=== PATIENT | female | born 1965 | race Caucasian/White ===

== ENCOUNTER → 2018-03-03 16:46 | Outpatient (CLI) | payer BC, SELFPAY ==
[2018-03-06 11:02] LABS: HPV Reflexed? NOT INDICATED
== END ==
PROVIDERS: Visit Provider Obstetrics & Gynecology
DX: Z12.4 Encounter for screening for malignant neoplasm of cervix (principal)
CPT/HCPCS: 88175; G0145

== ENCOUNTER → 2018-04-26 15:50 | Outpatient (CLI) | payer BC, SELFPAY ==
--- NOTE | 2018-04-26 15:52 | BI_ITS ---
MAMMOGRAPHY - BILATERAL SCREENING REASON FOR EXAM: Female, 52 years old. Routine annual screening examination. PERTINENT HISTORY: Non-contributory. TECHNIQUE: Digital bilateral breast yasmine (3D mammographic acquisition) in the CC and MLO projections. 2-D mediolateral oblique (MLO) and craniocaudad (CC) views of both breasts were obtained. CAD: Full Field Digital Mammography with Computer Added Detection was performed. COMPARISON: Comparison is made with prior study dated April 24, 2017 and December 11, 2014. FINDINGS: Breast Composition: There are scattered areas of fibroglandular density. There are no dominant masses or suspicious calcifications. No other significant abnormalities are identified. There has been no significant change since the prior study. BI/SCREENING MAMM (CAD), BILAT IMPRESSION: Stable bilateral screening mammogram. Yearly follow-up mammogram recommended. (A) ASSESSMENT CATEGORY: BIRADS Category 1: Negative. A letter regarding these results will be sent to the patient by the facility within 30 days. Approximately 10% of breast cancers are not detected by mammography. A normal mammogram should not delay biopsy of a clinically suspicious abnormality. [id number] Electronically Signed: John Bennett MD at 8:38 EDT Tel [phone], Service support ,
== END ==
PROVIDERS: Visit Provider Obstetrics & Gynecology
DX: Z12.31 Encounter for screening mammogram for malignant neoplasm of breast (principal)
CPT/HCPCS: 77063; 77067

== ENCOUNTER → 2018-07-24 08:09 | Outpatient (CLI) | payer BC, SELFPAY ==
[2018-07-24 10:32] LABS: BUN 20 mg/dL (7-18); Creatinine, Serum 0.78 mg/dL (0.55-1.02); EST Glomerular Filtration Rate 83 mL/min (>60); Glucose 79 mg/dL (74-106)
[2018-07-24 10:33] LABS: AST(SGOT) 23 U/L (15-37); Alanine Aminotransfer ALT/SGPT 27 U/L (13-56); Albumin, Serum 3.5 g/dL (3.2-5.0); Alkaline Phosphatase 86 U/L (45-117); Anion Gap 6 (5-15); BUN/Creat Ratio 25.6 RATIO (10-20); Calcium,Total 8.9 mg/dL (8.5-10.1); Chloride 104 mmol/L (98-107); Est Glom Filt Rate - Afr Amer 100 mL/min (>60); Globulin 3.6 g/dL (2.2-4.2); Potassium 4.1 mmol/L (3.5-5.1); Protein, Total 7.1 g/dL (6.4-8.2); Sodium Level 137 mmol/L (136-145)
== END ==
PROVIDERS: Family Provider Family Medicine; PCP Family Medicine; Referring Provider Family Medicine; Visit Provider Family Medicine
DX: I10 Essential (primary) hypertension (principal)
CPT/HCPCS: 36415; 80053

== ENCOUNTER → 2018-09-27 20:00 | Outpatient (CLI) | payer BC, SELFPAY | PROVIDERS: Family Provider Family Medicine; PCP Family Medicine; Visit Provider Nurse Practitioner Family | DX: G47.10 Hypersomnia, unspecified (principal) | CPT/HCPCS: 95810 ==

== ENCOUNTER → 2018-09-28 15:45 | Outpatient (CLI) | payer BC, SELFPAY ==
[2018-09-14 15:58] VITALS: BMI 38.7
--- NOTE | 2018-09-28 15:51 | CT_ITS ---
STUDY: CT MAXILLOFACIAL SINUSES REASON FOR EXAM: Female, 52 years old. Strycker sinus, chronic maxillary sinusitis. RADIATION DOSAGE (If Supplied By Facility): CTDIvol = ( 33.45 ) mGy, DLP = ( 755.46 ) mGycm TECHNIQUE: The patient was scanned in a multi detector CT scanner. High resolution axial imaging was performed without the administration of intravenous contrast material. Sagittal and coronal images were reconstructed. Individualized dose optimization techniques were used for this CT. COMPARISON: CT sinus 07/25/2014 FINDINGS: FRONTAL SINUSES: Normal aeration, without mucosal inflammatory disease. ETHMOIDAL SINUSES: Normal aeration, without mucosal inflammatory disease. MAXILLARY SINUSES: Normal aeration, without mucosal inflammatory disease. SPHENOIDAL SINUSES: Normal aeration, without mucosal inflammatory disease. There is patency of the bilateral maxillary infundibuli with normal uncinate processes, ethmoid bullae, and hiatus semilunaris. Normal bilateral middle turbinates. Normal bilateral inferior turbinates. There is mild rightward bowing of the nasal septum. There is patency of the bilateral nasal airways. The visualized osseous structures are normal. The visualized bilateral orbital contents are normal. CT/Sinus/Facial Bone IMPRESSION: Mild bowing of the nasal septum. Otherwise normal paranasal sinuses. No evidence of acute or chronic sinus disease. Electronically Signed: Marty Pinedo MD at 17:38 EST Tel , Service support ,
--- OUTSIDE RECORDS SUMMARY | 2018-11-14 23:04 | XMS RPT_ITS ---
:1965 Author Organization OHIP Support Name Relationship Address Phone MARINO, ARMANDO Unavailable [address] + [place] [address] WOOBR Unavailable [address] [place] [address] MARINO, ARMANDO Unavailable [address] + [place] [address] WOOBR Unavailable [address] [place] [address] MARINO, ARMANDO Unavailable [address] + [place] [address] WOOBR Unavailable [address] [place] [address] MARINO, ARMANDO Unavailable [address] + [place] [address] WOOBR Unavailable [address] [place] [address] MARINO, ARMANDO Unavailable [address] + [place] [address] WOOBR Unavailable [address] [place] [address] MARINO, ARMANDO Unavailable [address] + [place] [address] WOOBR Unavailable [address] [place] [address] MARINO, ARMANDO Unavailable [address] + [place] [address] WOOBR Unavailable [address] [place] [address] MARINO, ARMANDO Unavailable [address] + [place] [address] WOOBR Unavailable [address] [place] [address] MARINO, ARMANDO Unavailable [address] + [place] [address] WOOBR Unavailable [address] [place] [address] MARINO, ARMANDO Unavailable [address] + [place] [address] WOOBR Unavailable [address] [place] [address] Care Team Providers Name Role Phone Rocio Garza Attending Unavailable Carlos, Kai Referring Unavailable Rocio Garza Attending Unavailable Rocio Garza Referring Unavailable Brown, Kai Primary Care Unavailable Russel Walton PRODUCTION REPAIRER-C Attending Unavailable Carlos, Kai Referring Unavailable Lee, Kai Attending Unavailable Lee, Kai Referring Unavailable Brown, Kai Primary Care Unavailable Brown, Kai Primary Care Unavailable Russel Walton PRODUCTION REPAIRER-C Attending Unavailable Brown, Kai Attending Unavailable Brown, Kai Referring Unavailable Brown, Kai Primary Care Unavailable Brown, Kai Attending Unavailable Primay Care Physicia, No Referring Unavailable Danica Duran Attending Unavailable Cecile Monk Attending Unavailable Cecile Monk Attending Unavailable PROBLEMS PROBLEMS DATE TYPE CONDITION / CODE ATTENDING STATUS SOURCE 10/11/2018 Unknown G47.33 - Galo Garza Obstructive sleep [facility] apnea (adult) Hospital (pediatric) / Repository G47.33(ICD-10) 09/27/2018 Unknown R40.0 - Somnolence Russel Walton Active [facility] / R40.0(ICD-10) PRODUCTION REPAIRER[facility]C [facility] Rep[facility] 09/14/2018 Unknown J32.9 - Chronic Russel Walton Active [facility] sinusitis, PRODUCTION REPAIRER-C Community unspecified / Hospital J32.9(ICD-10) Repository 07/14/2018 Unknown I10 - Essential Kai Gonzalez Active [facility] (primary) Community hypertension / Hospital I10(ICD-10) Repository 04/26/2018 Unknown Z12.31 - Encounter Cecile Monk for screening [facility] mammogram for Hospital malignant neoplasm Repository of breast / Z12.31(ICD-10) 03/04/2018 Unknown Z12.4 - Encounter Cecile Monk Active [facility] for screening for Community malignant neoplasm [facility] / Repository Z12.4(ICD-10) PROCEDURES PROCEDURES No Procedure Records FoundRESULTS RESULTS PULMONARY VISIT REPORT Observed: 10/11/2018 Status: F Source: CHRISTINE 8:53 AM [facility] REPOSITORY [facility] [address] [place] [address] OFFICE VISIT Date of Service: 10/11/18 MR#: [id number] Acct: [id number] Name: OPAL AMI Rep #: [id number] : 1965 Provider: Rocio Garza Age/Sex: 52/F Location: [facility] Status: Signed Assessment AND Plan 1. FERNANDA (obstructive sleep apnea) G47.33 Plan New. Lengthy discussion about the pathophysiology of obstructive sleep apnea. Discussed the risks of untreated sleep apnea and the benefits of treatment. Patient is willing to undergo a titration study. Discussed that initially the goal will be that she wears the device at least 4 hours nightly, but ultimately she should wear the device any time spent sleeping. She conveys understanding and is agreeable. She will follow-up with Dr. Stone in approximately 3 months, at which time anticipate she will be on therapy for approximately 4-6 weeks. She has been encouraged to contact the office with any difficulty acclimating to the device. Orders Orders: 2. Class 2 severe obesity due to excess calories with serious comorbidity and body mass index (BMI) of 38.0 to 38.9 in adult E66.01; Z68.38 Plan Detail Other Medications New: albuterol sulfate HFA 90 mcg/actuation (Vento2 puffs Inhalation Q6H PRN 18 grams 6RF shor santosh HFA) tness of breath or wheezing Follow Up 3 Months (BWA) HPI Sleep concern: Chief Complaint: Daytime hypersomnia HPI Comments Details: This patient presents the office today for evaluation for sleep apnea. She is ambulatory and currently in room air. She reports persistent daytime fatigue, frequent headaches, snoring and dry mouth in the morning. She has occasional shortness of breath on exertion only, denies any shortness of breath with rest or conversation. She denies any cough, sputum production or hemoptysis. She denies any wheezing, chest tightness, chest pain or palpitations. She denies any trouble with lower extremity edema. She is currently being treated by her primary care physician for her asthma, and rarely needs to use her Ventolin rescue inhaler. She follows with Dr. Lee regarding recurrent sinusitis and is being treated with Flonase daily. She denies any medication side effects such as epistaxis. Polysomnogram completed on September 27, 2018 showing an overall AHI of 15.3 average events per hour, noted to be 14.6 events per hour in the REM stage of sleep and 22.8 events per hour in the supine position. Impression is mild obstructive sleep apnea and a CPAP titration study has been recommended. STOP-BANG Assessment: 1. Do you snore? Y 2. Are you frequently tired during the day? Y 3. Have you been observed gasping or choking while asleep? N 4. Do you have high blood pressure? Y 5. BMI - greater than 35kg/m2? Y 6. Age - over 50 years old? Y 7. Neck Circumference - greater than 37 cm for females or 40 cm for males? Y 8. Gender - male? N Total STOP-BANG score = 6 which indicates High risk for obstructive sleep apnea (yes to 3 or more questions = high risk of sleep apnea). Intake Vital Signs10/11/18 Height 5 ft 5 in 10/11/18 Weight: 230 lb Intake Visit Reasons: Sleep problems Accompanied by: Self Allergies No Known Allergies Allergy (Unverified 10/11/18 08:18) Medications albuterol sulfate 0.63 mg/3 mL solution for nebulization 0.63 mg INHALATION Q4H PRN 07/14/18 [History Confirmed 10/11/18] lisinopril 20 mg-hydrochlorothiazide 25 mg tablet 1 tab PO QDAY #90 tab 07/14/18 [Rx Confirmed 10/11/18] fluticasone 50 mcg/actuation nasal spray,suspension 2 spray INTRANASAL DAILY #15.8 g 09/14/18 [Rx Confirmed 10/11/18] albuterol sulfate HFA 90 mcg/actuation aerosol inhaler 2 puff INHALATION Q6H PRN #18 g 10/11/18 [Rx Confirmed 10/11/18] PFS Medical History Acute hemorrhoid (Acute) Hypokalemia (Chronic) Hypertension (Chronic) History of hysterectomy (Acute) IBS (irritable bowel syndrome) (Acute) Surgical History History of D AND C (Acute) History of colposcopy (Acute) History of orthopedic surgery (Acute) Family History Other Cancer Hypertension Thyroid disorder Social History Smoking Status: Former smoker how long ago did patient quit smokin, second hand exposure: Yes alcohol intake: never substance use type: does not use what type of physical activity do you participate in: none Review of Systems Const CONSTITUTIONAL: Positive daytime sleepiness and fatigue; negative anorexia, body ache, chills, fever(s), night sweats, oral thrush, stops breathing during sleep, weight loss, sleeping in chair, weight loss, weight gain, frequent colds, seasonal allergies, other, headache(s) or orthopnea EETM Ear Nose Throat Mouth: Positive hearing normal, dry mouth in morning, nasal congestion and sinus pressure; negative hard of hearing, hoarseness, change in vision, itchy eyes, eye pain, swallowing Difficulty, ear pain, nose bleed, headache(s), mouth pain, nasal discharge, post nasal drip, sinus pain, sore throat or other Cardio Cardiovascular: Negative chest pain, chest pain at rest, chest pain with activity, irregular heart rhythm, edema, shortness of breath when lying down, palpitations, murmur or other Resp Respiratory: Positive as per HPI, shortness of breath shortness of breath: Positive with activity, cough, snoring and apnea; negative pain with cough, wheezing, chest congestion, chest tightness, pain on inspiration, inhalers, increase use of rescue inhalers or other Gastro Gastrointestional: Negative bloody stools, change in appetite, difficulty swallowing, reflux, hematemesis, melena stool, loose stool, constipation or other Genitourinary: Negative blood in urine, nocturia, pain with urination or other Musc Musculoskeletal: Negative body pain, back pain, neck pain or other Skin/Breast Skin/Breast: Negative dry skin, itching, rash, unusual bruising, breast lump or other Neuro Neurological: Negative restless legs, confusion, weakness or other Psych Psychocological: Negative abnormal sleep pattern, anxiety, thoughts of hurting self/others, hopelessness or other Lymph Lymphatic: Negative easy bleeding, easy bruising, swollen lymph nodes or other Exam Const Constitutional: Positive conversant, cooperative, in no acute respiratory distress, healthy appearing, well developed, well nourished, good hygiene and obese Head Head: Positive normocephalic and atraumatic; negative cyanosis of lips/distal nose Eyes Eye: Positive clear conjunctiva; negative nystagmus or scleral abnormality Ears Ear: Positive hearing normal and external ears normal; negative hard of hearing Nose Nose: Positive external nose normal and no nasal discharge; negative epistaxis Mouth Mouth: Positive oral mucosae normal, no lesions, good dentition and crowded posterior oropharynx; negative post nasal drip, malodorous breath or oral thrush present Mallampati Score: III: Mallampati Score Neck Neck: Positive normal visual inspection, full ROM, trachea midline, thick neck and female neck greater than 37 cm (15 in); negative lymphadenopathy, JVD or tender Chest Wall Chest: Positive normal inspection of the chest and symmetric chest movement; negative increased A/P diameter Resp lung sounds: Positive clear to auscultation, good air exchange, normal expiratory time and normal respiratory effort; negative diminished, wheezes, rhonchi, rales, dullness to percussion or wheeze present on forced exhalation Cardio Cardiac: Positive regular rate, regular rhythm, S1 normal and S2 normal; negative murmur GI GI: Positive normal to inspection and obese; negative distended Genitourinary: Positive deferred Musc Musculoskeletal: Positive steady gait and ROM normal; negative kyphosis or scoliosis Skin Pulmonary Skin Exam: Positive intact; negative rash Pulses Pulse: Yes pulses normal x4 extremities Extremities Extremities: Yes capillary refill normal, No clubbing, No cyanosis, No edema Neuro Neurologic: Yes conversant, Yes no focal neuro deficits, Yes normal concentration, Yes cooperative, Yes understands questions, Yes normal cognition, Yes normal coordination, No tremor Lymph Lymphatic: No lymphadenopathy, No tenderness, No cervical adenopathy Psych Appearance: Positive grossly normal, eye contact and well kempt Mental Status: Positive mental status grossly normal Mood: Positive congruent mood Affect: Positive normal affect Coding Level of Care Code Off vis,new,level 4 Diagnoses FERNANDA (obstructive sleep apnea) G47.33 Class 2 severe obesity due to excess calories with serious comorbidity and body mass index (BMI) of 38.0 to 38.9 in adult E66.01; Z68.38 Obesity type: due to excess calories Obesity classification: adult class 2 (BMI 35 - 39.9) Serious obesity comorbidity presence: with serious comorbidity Body mass index: BMI 38.0-38.9 10/11/18 0853 <Electronically signed by Rocio BURGOS> Date Rocio BURGOS Cosigner Signature: Date (if applicable) CC: Kai Gonzalez DO SINUS/FACIAL BONE Observed: 09/28/2018 Status: F Source: CHRISTINE 3:51 PM [facility] REPOSITORY [facility] Imaging Services [address] [place] [address] Sinus/Facial Bone MR#: [id number] Acct: [id number] Name: OPAL MAI Rep #: [id number] : 1965 F 52 From: Marty Pinedo MD PCP: Kai Gonzalez DO Status: REG CLI Study: Sinus/Facial Bone Date of Exam: 09/28/18 Exam# [id number] Ordering Dr: Kai Lee MD STUDY: CT MAXILLOFACIAL SINUSES REASON FOR EXAM: Female, 52 years old. Strycker sinus, chronic maxillary sinusitis. RADIATION DOSAGE (If Supplied By Facility): CTDIvol = ( 33.45 ) mGy, DLP = ( 755.46 ) mGycm TECHNIQUE: The patient was scanned in a multi detector CT scanner. High resolution axial imaging was performed without the administration of intravenous contrast material. Sagittal and coronal images were reconstructed. Individualized dose optimization techniques were used for this CT. COMPARISON: CT sinus 07/25/2014 FINDINGS: FRONTAL SINUSES: Normal aeration, without mucosal inflammatory disease. ETHMOIDAL SINUSES: Normal aeration, without mucosal inflammatory disease. MAXILLARY SINUSES: Normal aeration, without mucosal inflammatory disease. SPHENOIDAL SINUSES: Normal aeration, without mucosal inflammatory disease. There is patency of the bilateral maxillary infundibuli with normal uncinate processes, ethmoid bullae, and hiatus semilunaris. Normal bilateral middle turbinates. Normal bilateral inferior turbinates. There is mild rightward bowing of the nasal septum. There is patency of the bilateral nasal airways. The visualized osseous structures are normal. The visualized bilateral orbital contents are normal. CT/Sinus/Facial Bone IMPRESSION: Mild bowing of the nasal septum. Otherwise normal paranasal sinuses. No evidence of acute or chronic sinus disease. Electronically Signed: Marty Pinedo MD at 17:38 EST Tel , Service support , CC: Kai Gonzalez DO; Kai Lee MD Railway Head Tender: Signed INTERNAL MEDICINE Observed: 09/15/2018 Status: F Source: CHRISTINE OFFICE VISIT 10:49 AM [facility] [place] [address] [place] [address] OFFICE VISIT Date of Service: 09/14/18 MR#: [id number] Acct: [id number] Name: OPAL MAI Carroll Rep #: [id number] : 1965 Provider: Russel Walton NP Age/Sex: 52/F Location: [facility] Status: Signed Intake Vital Signs09/14/18 Height 5 ft 5 in Intake Visit Reasons: Wants Sleep Study Chief Complaint: sleep study work up and sinus infection Is patient in pain?: Yes (sinus pressure) Allergies No Known Allergies Allergy (Unverified 07/14/18 15:22) Medications albuterol sulfate 0.63 mg/3 mL solution for nebulization 0.63 mg INHALATION Q4H PRN 07/14/18 [History Confirmed 07/14/18] albuterol sulfate HFA 90 mcg/actuation aerosol inhaler 2 puff INHALATION Q6H PRN 07/14/18 [History Confirmed 07/14/18] lisinopril 20 mg-hydrochlorothiazide 25 mg tablet 1 tab PO QDAY #90 tab 07/14/18 [Rx Confirmed 07/14/18] fluticasone 50 mcg/actuation nasal spray,suspension 2 spray INTRANASAL DAILY #15.8 g 09/14/18 [Rx Confirmed 09/14/18] Post menopausal: Yes PFSH Medical History Acute hemorrhoid (Acute) Hypokalemia (Chronic) Hypertension (Chronic) History of hysterectomy (Acute) IBS (irritable bowel syndrome) (Acute) Surgical History History of D AND C (Acute) History of colposcopy (Acute) History of orthopedic surgery (Acute) Family History Other Cancer Hypertension Thyroid disorder Social History Smoking Status: Former smoker how long ago did patient quit smokin alcohol intake: never substance use type: does not use what type of physical activity do you participate in: none HPI HPI Chief Complaint: sleep study work up and sinus infection Details: OPAL MAI, is a 52 F who presents to the office today for acute visit for complaints of recurrent sinus infection and wanting sleep study ordered. Patient has a past medical history as listed above. The patient states that she needs an order for sleep study that she has scheduled at the end of this week. STOP-BANG Assessment: 1. Do you snore? y 2. Are you frequently tired during the day? y 3. Have you been observed gasping or choking while asleep? y 4. Do you have high blood pressure? y 5. BMI - greater than 35kg/m2? y 6. Age - over 50 years old? y 7. Neck Circumference - greater than 37 cm for females or 40 cm for males? y 41cm 8. Gender - male? n Total STOP-BANG score = 7 which indicates high risk for obstructive sleep apnea (yes to 3 or more questions = high risk of sleep apnea). Patient also complains of sinus pressure and sinus headache that have been going on for the past week. She complains of pressure under her eyes and a headache on the top of her head. She denies sinus pressure pain with change in position. She is attempted [id number] Tylenol Cold and saline nasal spray that have had little effect. She states she was recently treated with Augmentin in June for sinusitis and states that she gets frequent 5-6 sinus infections yearly. She does state that she has seen ENT about 3 years ago and was diagnosed with migraines, although she feels this is not the problem. She is requesting to see a different ent. She denies any other aggravating or alleviating factors. The patient otherwise denies any fever, chills, nausea, vomiting, shortness of breath, chest pain or pressure, palpitations, orthopnea, lower extremity edema, syncope or presyncopal episodes. ROS Const Constitutional: Positive for fatigue, sleep problems and snoring; no weight change, body ache, chills, fever(s), change in appetite, weakness, frequent falls, headache(s) or excessive sweating Eyes Eyes: No change in vision, eye pain, light sensitivity or blurry vision ENT ENT: Positive for nasal congestion, sinus pain and sinus pressure; no headache(s), abnormal hearing, ear pain, tinnitus, sore throat or neck pain Resp Respiratory: Positive for snoring; no cough, shortness of breath or wheezing Cardio Cardiology: No excessive sweating, chest pain at rest, chest pain with exertion, shortness of breath, dyspnea on exertion, palpitations, orthopnea or lightheadedness Gastro GI: No abdominal pain, change in bowel habits, constipation, diarrhea, vomiting, nausea/dyspepsia or cramping Genitourinary-Female: No burning urination, painful urination, urinary incontinence, urinary frequency, abnormal vaginal bleeding, pelvic pain or other Musc Musculoskeletal: No neck pain, abnormal walking, joint pain, back pain, limited range of motion, numbness, tingling or muscle weakness Skin Skin: No redness, dry skin, itching, lesions, wounds or rash Neuro Neurology: No weakness, frequent falls, headache(s), abnormal hearing, abnormal walking, numbness, tingling, abnormal speech, dizziness or memory loss Psych Psychiatric: No change in appetite, No memory loss, No anxiety, No depression, No Thoughts of harming yourself/Others Endo Endocrine: Positive for fatigue; no excessive sweating, cold intolerance, increased thirst/drinking, heat intolerance, flushing or increased hunger Aller/Imm Allergy/Immunologic: No wheezing, itchy eyes, hives or seasonal allergy symptoms Tk/Lymp Hematologic/Lymphatic: No easy bleeding, easy bruising or enlarged lymph nodes Exam Const General: cooperative, comfortable, no acute distress Nutritional Appearance: well nourished, obese Orientation: alert, oriented x3 Limitations: mental status not altered HENNC Head: normal to inspection Ears: hearing grossly normal bilaterally, TM's normal bilaterally Nose: external nose normal Face and sinus: sinus tenderness maxillary Mouth: oral mucosae normal Teeth and gingiva: dentition normal Throat: posterior oropharynx normal, other (mallampati 4) Eyes General: appearance normal, both eyes and all related structures Resp Effort AND Inspection: normal respiratory effort, able to speak in complete sentences, normal respiratory pattern, symmetric chest movement, no audible wheezes, no cough Auscultation: Bilateral: Clear to Auscultation Cardio Palpation: normal PMI Rate: regular rate Heart Sounds: S1 normal, S2 normal, normal S1 and S2, no click, no gallops, no murmurs, no rubs Musc Musculoskeletal: No joint tenderness, decreased ROM or muscle weakness Skin General: no rashes or lesions noted, elasticity normal, turgor normal Lesions: no lesions Rashes: no rashes Neuro General: alert, awake, oriented x3, CN's II-XI intact bilaterally Speech: speech normal Gait: normal gait Motor: muscle tone normal throughout Extrem General: normal to inspection, normal gait, no edema, no pedal edema Psych Appearance: grossly normal Mental Status: mental status grossly normal Affect: normal affect Attitude: cooperative Thought Process: normal Assessment AND Plan 1. Chronic maxillary sinusitis J32.0 Plan Patient recently treated with Augmentin, will hold off on antibiotic treatment at this time as patient's duration of symptoms have only been a couple of days. Conservative management at this time. Encouraged patient to use Flonase. Patient also referred to ENT. Patient educated on medication side effects and signs and symptoms that would warrant emergency medical care. 2. Daytime somnolence R40.0 Plan Stop bang score 7. Referral given for sleep study. This note was generated with Volance dictation software. It may contain incorrect words, spelling, and punctuation that were not noted in checking the note before signing. Orders Orders: Plan Detail Other Orders Referrals: Other Medications New: fluticasone 50 mcg/actuation (Flonase Allergy Re2 sprays Intranasal DAILY 15.8 grams 1RF lief) administer into each nostril Follow Up As previously scheduled or sooner if Coding Level of Care Code Off vis,est,level 3 Diagnoses Chronic maxillary sinusitis J32.0 Daytime somnolence R40.0 09/15/18 1049 <Electronically signed by Russel BURGOS> Date Russel BURGOS Cosigner Signature: Date (if applicable) CC: COMPREHENSIVE METABOLIC Collected: 07/24/2018 Status: F Source: [place] REBECA 8:20 AM [facility] REPOSITORY TYPE CODE TESTS RESULT OUT OF RANGE REFERENCE UNITS LAB L501.0100 74-106 mg/dL Normal GLU 79 Result Comment: Please note revised GLUCOSE reference range effective 2017. LAB L501.1000 7-18 mg/dL High BUN 20 LAB L501.1100 0.55-1.02 mg/dL Normal CREAT,SERUM 0.78 Result Comment: The validity of the calculated GFR AND GFRAA in patients over 70 years has not been determined. Clinical correlation is essential. LAB L501.1110 >60 mL/min Normal EST GFR 83 Result Comment: Non- GFR Calc LAB L501.1115 >60 mL/min Normal EST GFR - AA 100 Result Comment: GFR Calc LAB L501.1300 10-20 RATIO High BUN/CRE 25.6 LAB L501.1500 6.4-8.2 g/dL T Normal PROT 7.1 LAB L501.1800 3.2-5.0 g/dL Normal ALB 3.5 LAB L501.1950 2.2-4.2 g/dL Normal GLOB 3.6 LAB L501.2000 0.9-2.4 RATIO Normal A/G 1.0 LAB L501.2200 8.5-10.1 mg/dL CA Normal 8.9 LAB L501.4100 15-37 U/L Normal AST 23 Result Comment: Slight Hemolysis, Result may be falsely increased. LAB L501.4305 45-117 U/L Normal ALK P 86 LAB L501.4405 13-56 U/L Normal ALT 27 LAB L501.4600 0.20-1.00 mg/dL Normal T BILI 0.40 LAB L501.5300 136-145 mmol/L Normal NA 137 LAB L501.5600 3.5-5.1 mmol/L Normal K 4.1 Result Comment: Slight Hemolysis, Result may be falsely increased. LAB L501.5900 98-107 mmol/L Normal CL 104 LAB L501.6100 21.0-32.0 mmol/L Normal CO2 27.0 LAB L501.6200 5-15 Normal 6 GAP Performed By: #### L500.4050 #### [facility] [address] [place], [address] INTERNAL MEDICINE Observed: 07/14/2018 Status: F Source: CHRISTINE OFFICE VISIT 4:07 PM [facility] Internal Medicine [address] [place] [address] [place] [address] OFFICE VISIT Date of Service: 07/14/18 MR#: [id number] Acct: [id number] Name: OPAL MAI Rep #: [id number] : 1965 Provider: Kai Gonzalez DO Age/Sex: 52/F Location: [facility] Status: Signed Intake Vital Signs07/14/18 Height 5 ft 5 in Intake Visit Reasons: EST CARE, REFILLS Chief Complaint: refills, sinus infection Is patient in pain?: No Allergies No Known Allergies Allergy (Unverified 07/14/18 15:22) Medications albuterol sulfate 0.63 mg/3 mL solution for nebulization 0.63 mg INHALATION Q4H PRN 07/14/18 [History Confirmed 07/14/18] albuterol sulfate HFA 90 mcg/actuation aerosol inhaler 2 puff INHALATION Q6H PRN 07/14/18 [History Confirmed 07/14/18] amoxicillin 875 mg-potassium clavulanate 125 mg tablet 1 tab PO BID #14 tab 07/14/18 [Rx Confirmed 07/14/18] fluconazole 150 mg tablet 150 mg PO Q3D 0 Days #7 tab 07/14/18 [Rx Confirmed 07/14/18] lisinopril 20 mg-hydrochlorothiazide 25 mg tablet 1 tab PO QDAY #90 tab 07/14/18 [Rx Confirmed 07/14/18] terbinafine HCl 1 % topical cream 1 applic TOPICAL BID #15 g 07/14/18 [Rx Confirmed 07/14/18] Post menopausal: Yes PFSH Medical History Acute hemorrhoid (Acute) Hypokalemia (Chronic) Hypertension (Chronic) IBS (irritable bowel syndrome) (Acute) Surgical History History of D AND C (Acute) History of colposcopy (Acute) History of hysterectomy (Acute) History of orthopedic surgery (Acute) Family History Other Cancer Hypertension Thyroid disorder Social History Smoking Status: Former smoker how long ago did patient quit smokin alcohol intake: never substance use type: does not use what type of physical activity do you participate in: none HPI HPI Chief Complaint: refills, sinus infection Details: OPAL MAI, is a 52 F who presents to the office today for refills on her medication and for chronic sinus drainage and cough. The head congestion and cough started for 5 days ago she is coughing up mucopurulent sputum but mainly from the postnasal drainage she has. She has positional headaches with her sinus pain 2. ROS Const Constitutional: No weight change, body ache, chills, fatigue, sleep problems, fever(s), change in appetite, snoring, weakness, frequent falls, headache(s) or excessive sweating Eyes Eyes: No change in vision, eye pain, light sensitivity or blurry vision ENT ENT: Positive for nasal congestion, sore throat (slight) and sinus pressure; no headache(s), abnormal hearing, ear pain, tinnitus or neck pain Resp Respiratory: Positive for cough Cough: Yes productive; no snoring, shortness of breath or wheezing Cardio Cardiology: No excessive sweating, chest pain at rest, chest pain with exertion, shortness of breath, dyspnea on exertion, palpitations, orthopnea or lightheadedness Gastro GI: No abdominal pain, change in bowel habits, constipation, diarrhea, vomiting, nausea/dyspepsia or cramping Genitourinary-Female: No burning urination, painful urination, urinary incontinence, urinary frequency, abnormal vaginal bleeding, pelvic pain or other Musc Musculoskeletal: No neck pain, abnormal walking, joint pain, back pain, limited range of motion, numbness or tingling Skin Skin: Positive for redness (spot on Rt. side of clavicle); no dry skin, itching, lesions, wounds or rash Neuro Neurology: No weakness, frequent falls, headache(s), abnormal hearing, abnormal walking, numbness, tingling, abnormal speech, dizziness or memory loss Psych Psychiatric: No change in appetite, No memory loss, No anxiety, No depression, No Thoughts of harming yourself/Others Endo Endocrine: No fatigue, excessive sweating, cold intolerance, increased thirst/drinking, heat intolerance, flushing or increased hunger Aller/Imm Allergy/Immunologic: No wheezing, itchy eyes, hives or seasonal allergy symptoms Tk/Lymp Hematologic/Lymphatic: No easy bleeding, easy bruising or enlarged lymph nodes Exam Const General: cooperative Nutritional Appearance: overweight Orientation: oriented x3 HENMT Head: normal to inspection Ears: hearing grossly normal bilaterally, TM's normal bilaterally Nose: nasal discharge clear bilaterally Face and sinus: sinus tenderness maxillary Mouth: oral mucosae normal Teeth and gingiva: dentition normal Throat: posterior oropharynx normal Resp Effort AND Inspection: normal respiratory effort Auscultation: Bilateral: Expiratory Wheezes Cardio Rate: regular rate Rhythm: regular rhythm GI Auscultation: normal bowel sounds Palpation: no hepatosplenomegaly Skin Rashes: rashes noted (tinea appearing lesion on the right side of the neck and in the groin) Extrem General: no clubbing, cyanosis or edema Psych Appearance: well kempt Mental Status: mental status grossly normal Affect: normal affect Assessment AND Plan Problems 1. Hypertension I10 2. Sinusitis J32.9 3. Tinea corporis B35.4 4. Asthma J45.909 Plan Patient was here for refill on her medications. She does have asthma but it is quite well controlled on the medication she takes and she does not have to use the albuterol on a daily basis. She has some mucopurulent sinus drainage and a productive cough so we treated her for sinusitis. She had a rash that appeared to be tinea and she was treated with Lamisil and her blood pressure medications were ordered as well as labs to check renal function. She was encouraged to continue to lose weight we discussed the possibility of being on a maintenance medicine rather than just the albuterol, but she did not think that her asthma was bad enough to justify that at this time. Orders Orders: Medications New: Refilled: Plan Detail Follow Up 1 Year Coding Level of Care Code Off vis,est,level 3 Diagnoses Hypertension I10 Sinusitis J32.9 Tinea corporis B35.4 Asthma J45.909 Asthma severity: moderate Asthma persistence: persistent 07/14/18 1607 <Electronically signed by Kai Gonzalez DO> Date Kai Gonzalez DO Cosigner Signature: Date (if applicable) CC: SCREENING MAMM (CAD), Observed: 04/26/2018 Status: F Source: [facility] 3:52 PM [facility] REPOSITORY [facility] Imaging Services [address] [place] [id number] SCREENING MAMM (CAD), [facility] MR#: [id number] Acct: [id number] Name: OPAL MAI Rep #: [id number] : 1965 F 52 From: John Bennett MD PCP: Care Physician, No Primary Status: REG CLI Study: SCREENING MAMM (CAD), BIL Date of Exam: 04/26/18 Exam# [id number] Ordering Dr: Cecile Monk MD MAMMOGRAPHY - BILATERAL SCREENING REASON FOR EXAM: Female, 52 years old. Routine annual screening examination. PERTINENT HISTORY: Non-contributory. TECHNIQUE: Digital bilateral breast yasmine (3D mammographic acquisition) in the CC and MLO projections. 2-D mediolateral oblique (MLO) and craniocaudad (CC) views of both breasts were obtained. CAD: Full Field Digital Mammography with Computer Added Detection was performed. COMPARISON: Comparison is made with prior study dated April 24, 2017 and December 11, 2014. FINDINGS: Breast Composition: There are scattered areas of fibroglandular density. There are no dominant masses or suspicious calcifications. No other significant abnormalities are identified. There has been no significant change since the prior study. BI/SCREENING MAMM (CAD), BILAT IMPRESSION: Stable bilateral screening mammogram. Yearly follow-up mammogram recommended. (A) ASSESSMENT CATEGORY: BIRADS Category 1: Negative. A letter regarding these results will be sent to the patient by the facility within 30 days. Approximately 10% of breast cancers are not detected by mammography. A normal mammogram should not delay biopsy of a clinically suspicious abnormality. [id number] Electronically Signed: John Bennett MD at 8:38 EDT Tel [phone], Service support , CC: No Primary Care Physician; Cecile Monk MD Railway Head Tender: Signed PAP I-G W/RFX HRHPV Collected: 03/03/2018 Status: F Source: [place] 3:45 PM [facility] REPOSITORY Order Comment: CYTOLOGY INFORMATION: - CLINICAL INFORMATION: HYSTERECTOMY - DATE LMP/MENOPAUSE: - COLLECTION VIAL: Thin Prep Vial - CORPORATE SALES TRAINER SOURCE: VAGINAL - COLLECTION TECHNIQUE: SPATULA ONLY Specimen Comment: [id number] Specimen Comment: No. of containers..01 ThinPrep Vial TYPE CODE TESTS RESULT OUT OF RANGE REFERENCE UNITS LAB L7400.0800 . Normal DIAGN Comment Result Comment: NEGATIVE FOR INTRAEPITHELIAL LESION AND MALIGNANCY. LAB L7400.0900 . Normal ADEQ Comment Result Comment: Satisfactory for evaluation. No endocervical cells are present. This is consistent with a history of hysterectomy. LAB L7400.1400 . Normal PERFORM Comment Result Comment: Stefania Barajas, Freight Brake Operator (ASCP) LAB L7400.2575 . Normal TEST METHOD Comment Result Comment: This liquid based ThinPrep(R) pap test was screened with the use of an image guided system. LAB L7400.2600 . Normal . COMM LAB L7400.2700 . Normal PAPSMR Comment Result Comment: The Pap smear is a screening test designed to aid in the detection of premalignant and malignant conditions of the uterine cervix. It is not a diagnostic procedure and should not be used as the sole means of detecting cervical cancer. Both false-positive and false-negative reports do occur. LAB L7400.2800 . Normal HPV RFLX Comment Result Comment: The HPV DNA reflex criteria were not met with this specimen result therefore, no HPV testing was performed. Performed at: [address] [id number] Back Hanger: Sulema Pastor MD, Phone: [phone] Performed By: #### L7400.0350 #### [facility] (refer to report for specific site) refer to report for address and phone number ALLERGIES ALLERGIES DATE TYPE / CODE NAME / CODE REACTION SEVERITY SOURCE 10/11/2018 Drug No Known Unknown [place] [facility] Allergy/4160 Allergies/F00 Hospital 04586(SNOMED [id number](RXNOR Repository CT) M) ENCOUNTERS ENCOUNTERS ADMIT/DISCHARGE ACCOUNT ADMITTING ENCOUNTER LOCATION SOURCE NUMBER CLASS 11/03/2018 [id number] Ambulatory [place] 4 [facility] ing:SL Repository 10/11/2018/ [id number] Ambulatory BMSBuilding:B [place] 8 2 [place] Repository 09/28/2018 [id number] Ambulatory [place] 1 [facility] ing:CT Repository 09/27/2018 [id number] Ambulatory [place] 9 [facility] ing:SL Repository 09/14/2018/ [id number] Ambulatory BMSBuilding:B [place] 8 7 MS.[facility] Repository 07/24/2018 [id number] Ambulatory [place] 7 [facility] ing:LAB Repository 07/14/2018/ [id number] Ambulatory BMSBuilding:B [place] 8 0 [facility] Repository 05/20/2018 [id number] Ambulatory BMSBuilding:B [place] 1 [facility] Repository 04/26/2018 [id number] Ambulatory [place] 8 [facility] ing:OPBI Repository 03/03/2018 [id number] Ambulatory [place] 0 [facility] ing:LABSPEC Repository PAYERS PAYERS ENCOUNTER GUARANTOR PAYER SUBSCRIBER SOURCE 11/03/2018 OPAL A Primary OPAL A [place] [id number] Insurance:ANTHEMPolic HUFFMANDOB: [facility] AMRITA MNAZANO y Number: [id number] Repository 23510Csv: (330) Date:8981-99-04WF [phone] () [address] [place] [address]KL: 11/03/2018 Secondary NOT GIVENUNK [place] Insurance:SELF PAY [facility] Number: Effective Repository Date:2018-10-13 10/11/2018 OPAL A Primary OPAL A [place] [id number] Insurance:ANTHEMPolic HUFFMANDOB: [facility] AMRITA MANZANO y Number: [id number] [id number] Repository 577[address]Uom: (330) Date:8634-88-65AT [phone] () [id number] [place] [address] 99987YP: 10/11/2018 Secondary NOT GIVENUNK [place] Insurance:SELF PAY [facility] Number: Effective Repository Date:2018-10-01 09/28/2018 OPAL A Primary OPAL A [place] [id number] Insurance:ANTHEMPolic HUFFMANDOB: [facility] AMRITA MANZANO y Number: [id number] [id number] Repository 543[address]Uou: (330) Date:3866-60-95NX [phone] () [id number] [place] [address] 72[address]KJ: 09/28/2018 Secondary NOT GIVENUNK [place] Insurance:SELF PAY [facility] Number: Effective Repository Date:2018-09-21 09/27/2018 OPAL A Primary OPAL A [place] [id number] Insurance:ANTHEMPolic HUFFMANDOB: [facility] AMRITA MANZANO y Number: [id number] [id number] Repository 304[address]Fli: (330) Date:0872-36-20OL [phone] () [id number], [place] [address]NH: 09/27/2018 Secondary NOT GIVENUNK [place] Insurance:SELF PAY [facility] Number: Effective Repository Date:2018-08-23 09/14/2018 OPAL A Primary OPLA A [place] [id number] Insurance:ANTHEMPolic HUFFMANDOB: Community AMRITA DRLOT y Number: [id number] [id number] Repository [address]Agk: (330) Date:2054-02-04SK [phone] () 436121GKDQOWY, [place] [address]SD: 09/14/2018 Secondary NOT GIVENUNK [place] Insurance:SELF PAY [facility] Number: Effective Repository Date:2018-09-14 07/24/2018 OPAL A Primary OPAL A [place] [id number] Insurance:ANTHEMPolic HUFFMANDOB: Community AMRITA DRLOT y Number: [id number] [id number] Repository [address]Ntd: (330) Date:5191-13-84FB [phone] () [id number], [place] [address]AQ: 07/24/2018 Secondary NOT GIVENUNK [place] Insurance:SELF PAY [facility] Number: Effective Repository Date:2018-07-24 07/14/2018 OPAL A Primary OPAL A [place] [id number] Insurance:ANTHEMPolic HUFFMANDOB: Community AMRITA DRLOT y Number: [id number] [id number] Repository [address]Cjy: (330) Date:9719-46-24JT [phone] () 005649DFDEMBC, [place] [address]CS: 07/14/2018 Secondary NOT GIVENUNK [place] Insurance:SELF PAY [facility] Number: Effective Repository Date:2018-07-14 05/20/2018 OPAL A Primary OPAL A [place] [id number] Insurance:ANTHEMPolic HUFFMANDOB: Community AMRITA MANZANO y Number: [id number] [id number] Repository [address]Vpy: (330) Date:9791-58-21JM [phone] () [id number], [place] [address]ZS: 05/20/2018 Secondary NOT GIVENUNK [place] Insurance:SELF PAY [facility] Number: Effective Repository Date:2018-05-20 04/26/2018 OPAL A Primary OPAL A [place] [id number] Insurance:ANTHEMPolic CARRIEFFMANDOB: [facility] AMRITA MANZANO y Number: [id number] [id number] Repository [address]Afw: (330) Date:3436-59-93JJ [phone] () 324[address]MHCHOIG, [place] [address]FR: 04/26/2018 Secondary NOT GIVENUNK [place] Insurance:SELF PAY [facility] Number: Effective Repository Date:2018-03-04 03/03/2018 OPAL A Primary OPAL A [place] [id number] Insurance:ANTHEMPolic HUFFMANDOB: [facility] AMRITA MANZANO y Number: [id number] [id number] Repository [address]Jqa: (330) Date:2963-70-21KP [phone] () [id number], [place] [address]XS: 03/03/2018 Secondary NOT GIVENUNK [place] Insurance:SELF PAY [facility] Number: Effective Repository Date:2018-03-03
== END ==
PROVIDERS: Family Provider Family Medicine; PCP Family Medicine; Referring Provider Otolaryngology; Visit Provider Otolaryngology
DX: J32.0 Chronic maxillary sinusitis (principal)
CPT/HCPCS: 70486

== ENCOUNTER → 2018-11-03 20:39 | Outpatient (CLI) | payer BC, SELFPAY ==
[2018-10-11 08:18] VITALS: BMI 38.2
== END ==
PROVIDERS: Family Provider Family Medicine; PCP Family Medicine; Referring Provider Nurse Practitioner Acute Care; Visit Provider Nurse Practitioner Acute Care
DX: G47.33 Obstructive sleep apnea (adult) (pediatric) (principal)
CPT/HCPCS: 95811

== ENCOUNTER → 2019-01-28 11:44 | Outpatient (CLI) | payer BC, SELFPAY ==
[2019-01-28 10:57] VITALS: BMI 37.5
--- NOTE | 2019-01-28 11:47 | RAD_ITS ---
STUDY: X-RAY - LUMBAR SPINE REASON FOR EXAM: Female, 53 years old. Low back pain. TECHNIQUE: 5 view(s) of the lumbar spine were obtained. COMPARISON: None FINDINGS: Normal lumbar lordosis. There is no substantial scoliosis. There is grade 1 spondylolisthesis of L5 on S1. There is multilevel endplate spondylosis of the lumbar vertebrae, most prominent at L2-3. Some osseous spurring is noted from the right L5 transverse process, extending towards the medial right iliac crest. There is multi-level degenerative disc disease with multi-level disc space narrowing, also most prominent at L2-3. There are chronic bilateral L5 pars defects. There is no demonstrated fracture. Degenerative changes seen in the lumbosacral facet joints. There is minor atherosclerotic calcification of the abdominal aorta. RAD/L/S Spine Min 4 Views IMPRESSION: Degenerative changes of the spine, as detailed above, including chronic bilateral L5 pars defects and grade 1 L5-S1 spondylolisthesis. Electronically Signed: Vinicius Flores MD at 15:37 EDT , Service support ,
== END ==
PROVIDERS: Family Provider Family Medicine; PCP Family Medicine; Referring Provider Internal Medicine; Visit Provider Internal Medicine
DX: M54.5 Low back pain (principal)
CPT/HCPCS: 72110

== ENCOUNTER 2019-04-15 09:39 | Day surgery (SDC) | payer BC, SELFPAY ==
[2019-03-11 09:07] VITALS: BMI 37.4
[2019-04-15] VITALS (8 sets, daily range): BP systolic 109–132; BP diastolic 75–97; PULSE 73–99; RESP 14–18; TEMP 36.3–36.7; O2SAT 93–100; BMI 37.3
--- NOTE | 2019-04-15 09:51 | EKG12_ITS ---
Test Reason : PREOP Blood Pressure : / mmHG Vent. Rate : 075 BPM Atrial Rate : 075 BPM P-R Int : 184 ms QRS Dur : 128 ms QT Int : 434 ms P-R-T Axes : 050 -47 -10 degrees QTc Int : 484 ms Normal sinus rhythm Right bundle branch block Left anterior fascicular block Bifascicular block Abnormal ECG Confirmed by KRYS ELDER, MARIA ESTHER ([id number]), editorial manager CATARINO ROUSE ([id number]) on 04/20/2019 1:01:05 PM Referred By: Kai Lee Confirmed By:MARIA ESTHER MARCANO MD
[2019-04-15 10:23] LABS: Anion Gap 3 (5-15); BUN 20 mg/dL (7-18); BUN/Creat Ratio 24.8 RATIO (10-20); Calcium,Total 9.2 mg/dL (8.5-10.1); Chloride 105 mmol/L (98-107); Creatinine, Serum 0.81 mg/dL (0.55-1.02); EST Glomerular Filtration Rate 79 mL/min (>60); Est Glom Filt Rate - Afr Amer 96 mL/min (>60); Estimated Creatinine Clearance 73.11 ml/min; Glucose 92 mg/dL (74-106); Potassium 3.8 mmol/L (3.5-5.1); Sodium Level 136 mmol/L (136-145)
--- NOTE | 2019-04-15 13:20 | PCM.PN.SRG ---
Patient Problems: Active and Suspected Problems (Last Reviewed 03/11/19 @ 09:06 by Ailyn Colbert) Acute ethmoidal sinusitis (Acute) Acute maxillary sinusitis (Acute) Deviated nasal septum (Acute) Subjective: This is a 51-year-old female presents for recurrent acute sinusitis with exam showing deviated nasal septum. She denies of surgical treatment given the recurrent nature of her illness. Objective: Upon bringing the patient to the operative room under the care of anesthesia and intubation low pulse oximetry and oxygen saturation was noted. Auscultation of the lungs bilaterally showed greatly diminished lung sounds, rhonchi, and wheezing. This failed to improve with bronchodilator therapy and adjustment of the endotracheal tube. Given this the case was canceled and the patient revived and extubated with pulmonary evaluation and optimization prior to surgery elected. - Physical Exam Lungs: Diminished, Rhonchi, Wheezes Cardiovascular: Regular rate, Regular Rhythm Vital Signs Temp Pulse Resp BP Pulse Ox 98.1 F 73 18 132/81 H 98 04/15/19 10:00 04/15/19 10:00 04/15/19 10:00 04/15/19 10:00 04/15/19 10:00 Oxygen Delivery Method Room Air Weight: 101.7 kg Body Mass Index (BMI) 37.3 Laboratory Tests Past 24 Hrs 04/15/19 10:00 Sodium 136 Potassium 3.8 Chloride 105 Carbon Dioxide 28.0 Anion Gap 3 L BUN 20 H Creatinine 0.81 Estim Creat Clear Calc 73.11 Est GFR (MDRD) Af Amer 96 Est GFR (MDRD) Non-Af 79 BUN/Creatinine Ratio 24.8 H Glucose 92 Calcium 9.2 Medical Necessity - Tobacco Use Smoking Status: Former smoker Assessment/Plan All Active Problems (Last Reviewed 03/11/19 @ 09:06 by Ailyn Colbert) Acute ethmoidal sinusitis (Acute) Acute maxillary sinusitis (Acute) Deviated nasal septum (Acute) Musculoskeletal back pain (Acute) Low back pain (Acute) FERNANDA (obstructive sleep apnea) (Acute) Sinusitis (Acute) Tinea corporis (Acute) Acute hemorrhoid (Acute) Patient surgical case canceled due to bronchospasm and low oxygen saturation while intubated. We will plan for pulmonary consultation as an outpatient. Return of normal oxygenation was noted after extubation at 100% with oxygen supplementation.
--- NOTE | 2019-04-15 13:28 | SUR.PHASEI ---
DENIES CHEST PAIN, SHORTNESS OF BREATH, OR DIFFICULTY BREATHING. STATES SHE FEELS SOME CHEST CONGESTION BUT DENIES ANY OTHER C/O. DUONEB AND PA/LATERAL CXR ORDERED BY DR JOHNATHAN SCHREIBER, CALLED R.T. FOR AEROSOL.
[2019-04-15] MEDS: Ipratropium/Albuterol Sulfate 3 ML AMPUL.NEB INHALATION (13:40)
--- NOTE | 2019-04-15 14:50 | SUR.PHASEII ---
pt arrived to on RA, aaox3. pt informed of orders for CXR and of [address] Gnozalez Pulmonary. pt states she has called her sister to meet her at Dr Gonzalez's office at 1500. pt departed via w/c to radiology. land mobile radio technician notified of pt's order and subsequent 1500 appointment. tech states they are waiting on her and that they will transport her to Dr Gonzalez's office. Prema RN states she has spoken with Dr Gonzalez's office and they are aware of CXR orders per anesthesia.
--- NOTE | 2019-04-15 14:55 | RAD_ITS ---
STUDY: X-RAY CHEST REASON FOR EXAM: Female, 53 years old. Postop. Shortness of breath. TECHNIQUE: PA and lateral views of the chest. COMPARISON: None. FINDINGS: The lungs are clear and mildly hypoexpanded. There is no demonstrated pleural abnormality. Normal size heart. Normal mediastinum and bennie. Normal visualized pulmonary arteries. Normal visualized aortic arch and descending thoracic aorta. There are diffuse degenerative changes of the visualized thoracic spine. There is degenerative osteoarthritis of the bilateral shoulders. There is no demonstrated abnormality of the visualized soft tissue structures of the upper abdomen. RAD/Chest PA and Lateral IMPRESSION: No acute cardiopulmonary disease. Electronically Signed: Navin Ta DO at 16:03 EDT Tel [phone], Service support ,
== END 2019-04-15 14:49 | disposition home or self-care (01) ==
LOC: SDC 09:39 → AC 09:41
PROVIDERS: Family Provider Family Medicine; PCP Family Medicine; Referring Provider Otolaryngology; Visit Provider Otolaryngology
DX: J34.2 Deviated nasal septum (principal); J01.21 Acute recurrent ethmoidal sinusitis; J01.01 Acute recurrent maxillary sinusitis; Z53.8 Procedure and treatment not carried out for other reasons; R09.02 Hypoxemia; I10 Essential (primary) hypertension; K58.9 Irritable bowel syndrome, unspecified; J45.909 Unspecified asthma, uncomplicated; G47.33 Obstructive sleep apnea (adult) (pediatric); Z79.899 Other long term (current) drug therapy; Z87.891 Personal history of nicotine dependence
CPT/HCPCS: 30520; 31255; 71046; 80048; 93005; J7120; J2405

== ENCOUNTER → 2019-04-29 19:50 | Outpatient (CLI) | payer BC, SELFPAY ==
[2018-12-30 14:58] VITALS: BMI 38.2
== END ==
PROVIDERS: Family Provider Family Medicine; PCP Family Medicine; Referring Provider Internal Medicine Critical Care Medicine; Visit Provider Internal Medicine Critical Care Medicine
DX: G47.33 Obstructive sleep apnea (adult) (pediatric) (principal)
CPT/HCPCS: 95811

== ENCOUNTER → 2019-05-06 | Outpatient (CLI) | payer BC, SELFPAY ==
[2019-04-15 14:39] VITALS: BMI 37.3
[2019-05-12 09:26] LABS: HPV Reflexed? NOT INDICATED
== END | disposition home or self-care (01) ==
LOC: LABSPEC 11:46
PROVIDERS: Visit Provider Obstetrics & Gynecology
DX: Z12.4 Encounter for screening for malignant neoplasm of cervix (principal)
CPT/HCPCS: 88175; G0145

== ENCOUNTER → 2019-05-10 15:45 | Outpatient (CLI) | payer BC, SELFPAY ==
[2019-04-15 14:39] VITALS: BMI 37.3
== END ==
PROVIDERS: Family Provider Family Medicine; PCP Family Medicine; Referring Provider Nurse Practitioner Acute Care; Visit Provider Nurse Practitioner Acute Care
DX: Z00.00 Encounter for general adult medical examination without abnormal findings (principal)

== ENCOUNTER → 2019-05-25 | Outpatient (CLI) | payer BC, SELFPAY ==
[2019-04-15 14:39] VITALS: BMI 37.3
[2019-05-11 16:12] VITALS: BMI 37.9
--- NOTE | 2019-05-25 15:51 | BI_ITS ---
MAMMOGRAPHY - BILATERAL SCREENING REASON FOR EXAM: Female, 53 years old. Routine annual screening examination. PERTINENT HISTORY: Non-contributory. TECHNIQUE: Digital bilateral breast ivory (3D mammographic acquisition) in the CC and MLO projections. 2-D mediolateral oblique (MLO) and craniocaudad (CC) views of both breasts were obtained. CAD: Full Field Digital Mammography with Computer Added Detection was performed. COMPARISON: Comparison is made with prior study April 26, 2018 and April 24, 2017. FINDINGS: Breast Composition: There are scattered areas of fibroglandular density. There are no dominant masses or suspicious calcifications. No other significant abnormalities are identified. There has been no significant change since the prior study. BI/SCREEN MAMM (CAD) W/IVORY BILAT IMPRESSION: Stable bilateral screening mammogram. Yearly follow-up mammogram recommended. (A) ASSESSMENT CATEGORY: BIRADS Category 1: Negative. A letter regarding these results will be sent to the patient by the facility within 30 days. Approximately 10% of breast cancers are not detected by mammography. A normal mammogram should not delay biopsy of a clinically suspicious abnormality. [id number] Electronically Signed: John Bennett, at 8:46 EDT , Service support ,
== END | disposition home or self-care (01) ==
PROVIDERS: Family Provider Family Medicine; PCP Family Medicine; Referring Provider Obstetrics & Gynecology; Visit Provider Obstetrics & Gynecology
DX: Z12.31 Encounter for screening mammogram for malignant neoplasm of breast (principal)
CPT/HCPCS: 77063; 77067

== ENCOUNTER → 2019-05-26 14:01 | Outpatient (CLI) | payer BC, SELFPAY ==
[2019-05-11 16:12] VITALS: BMI 37.9
--- NOTE | 2019-05-26 14:02 | ECHOD_ITS ---
Reason For Study: Arrhythmia Procedure This was a 2D Doppler, Color Flow transthoracic echocardiogram. Exam performed in department. Left Ventricle Normal LV size. Left ventricular systolic function is normal. The estimated ejection fraction is 55 %. Stage 2 diastolic dysfunction. No regional wall motion abnormalities noted. Right Ventricle Normal RV size. Normal systolic function. Atria Normal left atrium. Normal right atrium. Mitral Valve Normal mitral valve. Tricuspid Valve Normal tricuspid valve. Mild tricuspid valve insufficiency. Pulmonary artery systolic pressure is 25 mmHg. Pulmonic Valve Normal pulmonic valve. Great Vessels Normal aortic root. The pulmonary artery is normal size. Normal inferior vena cava. Pericardium/Pleural No pericardial effusion. MMode/2D Measurements & Calculations LVIDd: 3.8 cm IVSd: 1.1 cm Ao root diam: 2.8 cm LVIDs: 2.4 cm LVPWd: 1.2 cm RVDd: 3.6 cm FS: 36.3 % LAV(MOD-bp): 47.9 ml LA A4 area: 17.5 cm2 LA dimension(2D): 3.2 cm LAV(MOD-bp) Indexed: 23.1 ml/m2 LAV(MOD-sp2): 48.9 ml LAV(MOD-sp4): 47.0 ml RA A4 area: 13.9 cm2 Doppler Measurements & Calculations MV E max kam: 122.0 cm/sec Lat Peak E' Kam: 10.0 cm/sec Med Peak E' Kam: 8.5 cm/sec MV A max kam: 93.4 cm/sec E/E' lat: 12.3 E/E' med: 14.4 MV E/A: 1.3 Ao V2 max: 149.7 cm/sec LV V1 max: 119.3 cm/sec PA V2 max: 103.3 cm/sec Ao max P.0 mmHg LV V1 max P.7 mmHg TR max kam: 230.2 cm/sec TR max P.2 mmHg Interpretation Summary Normal LV size. Left ventricular systolic function is normal. The estimated ejection fraction is 55 %. Stage 2 diastolic dysfunction. Pulmonary artery systolic pressure is 25 mmHg. Ordering Physician: Matthew Sosa Referring Physician: Aleks Gonzalez M.D. Performed By: Abby Nicholson RDCS
== END ==
PROVIDERS: Family Provider Family Medicine; PCP Family Medicine; Referring Provider Internal Medicine Cardiovascular Disease; Visit Provider Internal Medicine Cardiovascular Disease
DX: Z01.810 Encounter for preprocedural cardiovascular examination (principal); I45.2 Bifascicular block
CPT/HCPCS: 93306

== ENCOUNTER 2019-07-01 06:27 | Day surgery (SDC) | payer BC, SELFPAY ==
[2019-06-01 08:15] VITALS: BMI 37.8
[2019-06-21 16:18] VITALS: BMI 37.3
[2019-07-01] VITALS (8 sets, daily range): BP systolic 111–161; BP diastolic 73–97; PULSE 71–93; RESP 16; TEMP 36.1–36.8; O2SAT 94–100; BMI 38.1
[2019-07-01 07:07] LABS: Hematocrit 42.9 % (37-47); Hemoglobin 14.4 g/dL (12.0-15.0); Mean Corp Hgb Conc 33.6 g/dL (32-36); Mean Corpuscular Hgb 30.8 pg (27.0-32.0); Mean Corpuscular Volume 91.9 fL (81-99); Mean Platelet Vol. 9.6 fl (6.2-12.0); Platelet Count 229 K/mm3 (150-450); RBC Distribution Width CV 12.9 % (11.6-14.6); RBC Distribution Width SD 43.6 fl (35.1-43.9); Red Blood Count 4.67 M/mm3 (4.2-5.4); White Blood Count 5.6 K/mm3 (4.4-11.0)
[2019-07-01] MEDS: Lactated Ringers 1,000 ML 100 ML IV (07:13)
--- NOTE | 2019-07-01 08:30 | ETH_PTH ---
PATIENT: OPAL MAI [place] [facility] [place][id number] AGE/SX: 53/F ROOM: RE07/01/[address]: Dr. Kai Lee MD : 1965 BED: DIS: 07/01/2019 SPEC #: [id number] RECD: 07/01/19 12:32 STATUS: KWASI CRISTY #: [id number] KISHORE: 07/01/19 08:[address]: Kai Lee DEPT: SURGICAL PATHOLOGY RECD BY: Geoffrey Valentin ENTERED: 07/01/19 12:33 SP TYPE: ETH TISS OTHR DR: Dr. Kai Gonzalez, Tissues: A - Ethmoid sinus, NOS B - Ethmoid sinus, NOS C - Nasal cartilage, NOS Procedures: Decalcification bone/plaque Surgery Specimen Level III Surgery Specimen Level IV HEADER OPERATION: Septoplasty, endoscopy nasal sinus with total ethmoidectomy PRE-OP DIAGNOSIS: Deviated nasal septum; acute ethmoidal sinusitis; acute maxillary sinusitis TISSUE SUBMITTED: A - Contents of right maxillary sinus, B - Contents of left maxillary sinus, C - Septal contents MICROSCOPIC DIAGNOSIS A. Right maxillary sinus contents: Fragments of respiratory mucosa with mild chronic inflammation. B. Left maxillary sinus contents: Fragments of respiratory mucosa with mild chronic inflammation and bone. C. Septal contents: Fragments of cartilage and bone, clinically deviated nasal septum. SJ:lopez 07/06/19 MICROSCOPIC DESCRIPTION Slides are reviewed. GROSS DESCRIPTION A - Received in fixative is one container labeled with the patient's name and designated right maxillary sinus contents. The specimen consists of multiple irregular and foamy fragments of pink-anderson soft tissue that in aggregate measure 5 x 3 x 0.3 cm. Mattress Stuffer portions are submitted in one cassette. B - Received in fixative is one container labeled with the patient's name and designated left maxillary sinus contents. The specimen consists of multiple irregular fragments of gritty, pink-anderson soft tissue that in aggregate measure 2.2 x 1 x 0.2 cm. The specimen is submitted in its entirety in one cassette after decalcification. C - Received in fixative is one container labeled with the patient's name and designated septal contents. The specimen consists of multiple irregular fragments of pink-white, gritty and cartilaginous tissue that in aggregate measure 2.5 x 2.5 x 0.2 cm. The specimen is submitted in its entirety in one cassette after decalcification. / AM:lopez 07/01/19 TC: 3 CPT: 34260 x2, 90263, 65815 x2
[2019-07-01] MEDS: Oxymetazoline 0.05% 1 SPRAY SPRAY.BTL 15 SPRAY (09:41)
[2019-07-01] MEDS: Lidocaine 4% 50 ML Bottle (09:41)
[2019-07-01] MEDS: Bacitracin 500 UNITS/GM PACKET (10:58)
--- NOTE | 2019-07-01 11:18 | OP.PCM_ITS ---
Problem List (1) Deviated nasal septum Status: Chronic (2) Acute maxillary sinusitis Status: Acute (3) Acute ethmoidal sinusitis Status: Acute Report of Operation Date of Procedure: 07/01/19 Pre-Operative Diagnosis: Deviated nasal septum, recurrent acute ethmoid and maxillary sinusitis Post-Operative Diagnosis: Same Surgery/Procedure Performed:: Septoplasty, bilateral endoscopic maxillary antrostomies, total ethmoidectomies Description of Surgical Findings:: Casi is a 53-year-old female who presents for evaluation of recurrent acute sinusitis complicating her respiratory status. She was noted to have clinically significant deviation of nasal septum and recurrent acute ethmoid and maxillary sinus disease and the above sutures often hopes of improved symptom control. Of note her initially scheduled procedure had to be aborted due to her significant bronchospasm requiring additional treatment and evaluation to allow for the surgical intervention. The risks, alternatives, potential complications, and benefits were discussed at length and any questions answered to the patient and/or caregiver's satisfaction. Witnessed informed consent was obtained in the office, and the patient and/or caregiver was agreeable to proceed. Procedure went as follows: The patient was identified in the preoperative holding and brought to the operating room, was placed under general anesthesia and intubated. When appropriate anesthesia was obtained, pledgets soaked in a 50-50 mixture of oxymetazoline and 4% topical lidocaine were placed to decongest the nasal mucosa. The nasal septum was then injected beginning on the left side with 1% lidocaine with 100,000 epinephrine for a total of 7 mL. The pledgets were then removed and the left nasal cavity examined. There was noted to be significant nasal septal deviation to the [right]. Using a 15 blade scalpel, a hemitransfixion incision was then made on the left side and using the Perkins elevator a subperichondrial/periosteal flap was elevated. The septum was then transected at the bony cartilaginous junction and a similar flap raised on the c ontralateral side. Using a Vani forceps, the septum was then sharply transected superiorly and the deviated portions removed with a Tennille forceps. Any inferior bony spur was then removed with a chisel allowing for midline placement of the nasal septum. The hemitransfixion incision was then closed with interrupted 4-0 chromic gut suture followed by a 4-0 plain quilting suture to reapproximate the mucosal flaps. The left side using a 0? endoscope the nasal cavity examined. The insertion of the middle turbinate and uncinate process was then injected with 1% lidocaine with 100,000 epinephrine for a total of 2 mL, and a similar injection was then carried on the contralateral side. Upon returning to the left side, the middle turbinate was medialized with a Imani elevator. This allowed examination of the maxillary sinus ostia which was then probed with a double ball seeker. The uncinate process was then outfractured with a J curette and transected with a backbiting forceps. This was then removed with the microdebrider creating a wide maxillary antrostomy. The ethmoid bulla was then entered and a total ethmoidectomy was then carried out working posteriorly to anterior. Any polyps, scar, and mucous secretions were removed. Pledgets soaked in oxymetazoline were then placed for hemostasis and attention turned to the contralateral side. Similar procedure and findings were then carried out. Floseal hemostatic agent was then applied. Lr splints coated with Bacitracin ointment were then applied to each nasal cavity and secured at the columella with a single 3-0 Prolene suture. An NG tube was then placed to decompress the stomach and the patient returned to anesthesia, revived and extubated having tolerated the procedure well. Type of Anesthesia:: General Anesthesiologist: Kai Kauffman Special Medications: none Specimen's removed: sinus and septum contents Drains: none Estimated Blood Loss (mL): 100 mL Fluids Replaced: 1500 mL Grafts/Implants Used: Lr splints - Complications none - Admit VTE Documentation VTE Present on Admission: No VTE Mechan Device Prophylaxis: SCD's VTE Pharm Prophylaxis ordered?: No
--- NOTE | 2019-07-01 11:25 | DCINST_ITS ---
You will use the following diet at home:: Regular Discharge Activity: Return to Normal Activity Call your doctor if your incision/area has: Sudden Increased Bleeding Call your doctor if you observe: Fever of 101 or Higher, Uncontrolled pain Allergies/Adverse Reactions: Allergies No Known Allergies Allergy (Unverified 06/24/19 14:55) Medications to take at Discharge cyclobenzaprine 10 mg tablet 10 mg PO TID PRN #90 tab 03/11/19 Linaclotide [Linzess] 72 mcg PO DAILY PRN 04/14/19 Lisinopril/Hydrochlorothiazide [Zestoretic 20-25 mg Tablet] 1 tab PO QDAY 04/14/19 albuterol sulfate 0.63 mg/3 mL solution for nebulization 0.63 mg INHALATION Q4H PRN #90 ml 06/01/19 albuterol sulfate HFA 90 mcg/actuation aerosol inhaler 2 puff INHALATION Q6H PRN #18 g 06/01/19 meloxicam 15 mg tablet 15 mg PO DAILY #30 tab 06/21/19 Primary Care Physician: Kai Gonzalez DO [Primary Care Provider] - Test Results: Test results from this visit will be discussed in further detail at your follow- up appointment, if applicable. Please Follow Up With: Kai Lee MD When: 5 days
== END 2019-07-01 15:04 | disposition home or self-care (01) ==
LOC: SDC 06:28 → AC 06:28
PROVIDERS: Anesthesiology; Family Provider Family Medicine; PCP Family Medicine; Referring Provider Otolaryngology; Visit Provider Otolaryngology
PROC: (CPT 30520; principal; 2019-07-01 08:15)
DX: J34.2 Deviated nasal septum (principal); J01.21 Acute recurrent ethmoidal sinusitis; J01.01 Acute recurrent maxillary sinusitis; I45.10 Unspecified right bundle-branch block; I49.9 Cardiac arrhythmia, unspecified; I10 Essential (primary) hypertension; J45.909 Unspecified asthma, uncomplicated; G47.30 Sleep apnea, unspecified; Z79.899 Other long term (current) drug therapy; Z87.891 Personal history of nicotine dependence
CPT/HCPCS: 30520; 31255; 31256; 36415; 85027; 88304; 88305; 88311; J7120

== ENCOUNTER → 2020-04-27 16:50 | Outpatient (CLI) | payer BC, SELFPAY ==
[2020-03-20 14:13] VITALS: BMI 38.1
--- NOTE | 2020-04-27 17:00 | RAD_ITS ---
STUDY: X-RAY - LEFT SHOULDER REASON FOR EXAM: Female, 54 years old. LEFT SHOULDER PAIN. NKI TECHNIQUE: 4 view(s) of the shoulder. COMPARISON: None. FINDINGS: Normal glenohumeral articulation. Normal acromioclavicular joint. Normal acromion. Normal humeral head and visualized proximal humerus. The soft tissue structures are unremarkable. Normal visualized pulmonary apex. RAD/Shoulder min 2 Views IMPRESSION: Normal x-ray examination of the shoulder. Electronically Signed: Marty Jiménez MD at 6:23 EDT Tel , Service support ,
== END ==
PROVIDERS: PCP Family Medicine; Referring Provider Family Medicine; Visit Provider Family Medicine
DX: M12.812 Other specific arthropathies, not elsewhere classified, left shoulder (principal)
CPT/HCPCS: 73030

== ENCOUNTER → 2020-07-20 07:00 | Outpatient (CLI) | payer BC, SELFPAY ==
[2020-05-31 13:41] VITALS: BMI 38.1
--- NOTE | 2020-07-19 16:50 | BI_ITS ---
MAMMOGRAPHY - BILATERAL SCREENING REASON FOR EXAM: Female, 54 years old. Routine annual screening examination. PERTINENT HISTORY: Non-contributory. TECHNIQUE: Digital bilateral breast ivory (3D mammographic acquisition) in the CC and MLO projections. 2-D mediolateral oblique (MLO) and craniocaudad (CC) views of both breasts were obtained. CAD: Full Field Digital Mammography with Computer Added Detection was performed. COMPARISON: Comparison is made with prior study dated 05/25/2019 and 04/26/2018. FINDINGS: Breast Composition: There are scattered areas of fibroglandular density. There are no dominant masses or suspicious calcifications. No other significant abnormalities are identified. There has been no significant change since the prior study. BI/SCREEN MAMM (CAD) W/IVORY BILAT IMPRESSION: Stable bilateral screening mammogram. Yearly follow-up mammogram recommended. (A) ASSESSMENT CATEGORY: BIRADS Category 1: Negative. A letter regarding these results will be sent to the patient by the facility within 30 days. Approximately 10% of breast cancers are not detected by mammography. A normal mammogram should not delay biopsy of a clinically suspicious abnormality. [id number] Electronically Signed: John Bennett, at 8:48 EDT , Service support ,
== END ==
PROVIDERS: PCP Family Medicine; Referring Provider Obstetrics & Gynecology; Visit Provider Obstetrics & Gynecology
DX: Z12.31 Encounter for screening mammogram for malignant neoplasm of breast (principal)
CPT/HCPCS: 77063; 77067

== ENCOUNTER → 2020-07-21 09:13 | Outpatient (CLI) | payer BC, SELFPAY ==
[2020-05-31 13:41] VITALS: BMI 38.1
[2020-07-21 11:08] LABS: Cholesterol 218 mg/dL (200); High Density Lipoprotein 65 mg/dL; Triglycerides 161 mg/dL; Very Low Density Lipoprotein 32 mg/dL (5-40)
[2020-07-21 14:46] LABS: Hemoglobin A1c 5.4 % (3.8-5.6)
== END ==
PROVIDERS: PCP Family Medicine; Referring Provider Obstetrics & Gynecology; Visit Provider Obstetrics & Gynecology
DX: Z13.89 Encounter for screening for other disorder (principal)
CPT/HCPCS: 36415; 80061; 83036

== ENCOUNTER → 2020-08-06 15:44 | Outpatient (CLI) | payer BC, SELFPAY ==
[2020-07-23 15:48] VITALS: BMI 38.1
--- NOTE | 2020-08-06 15:45 | MRI_ITS ---
STUDY: MRI LEFT SHOULDER REASON FOR EXAM: Anterior left shoulder pain for 4 months, no specific injury. TECHNIQUE: Standardized fat and water weighted pulse sequences were obtained in all 3 orthogonal planes. COMPARISON: Radiographs 04/27/2020. FINDINGS: There is supraspinatus tendinosis (T2 coronal image 14) without discrete tendon tear. Normal infraspinatus tendon. There is mild subscapularis tendinosis (proton-density axial images 13, 14) without discrete tendon tear. Normal teres minor tendon. Normal supraspinatus muscle. Normal infraspinatus muscle. Normal subscapularis muscle. Normal teres minor muscle. There is a minimal volume of fluid in the glenohumeral joint extending into the bicipital tendon sheath. There is subchondral cystic change of the anterior aspect of the humeral head. Normal biceps labral complex. Normal intracapsular long biceps tendon. Normal labrum. Normal capsulo- ligamentous complex. There is acromioclavicular arthrosis with hypertrophic changes effacing the subacromial fat (T2 sagittal images 9, 10). There is a Type II morphology (curved), with a neutral orientation. There is a trace of subacromial-subdeltoid bursal fluid. Normal visualized coracohumeral and coracoacromial ligaments. Normal deltoid muscle. Normal trapezius muscle. MRI/Upper Ext Joint Only(Routine) IMPRESSION: Supraspinatus and subscapularis tendinosis without demonstrated rotator cuff tear. Acromioclavicular arthrosis. Electronically Signed: Ez Coles MD at 8:39 EDT Tel , Service support ,
== END ==
PROVIDERS: PCP Family Medicine; Referring Provider Physician Assistant; Visit Provider Physician Assistant
DX: M75.42 Impingement syndrome of left shoulder (principal); M25.512 Pain in left shoulder
CPT/HCPCS: 73221

== ENCOUNTER → 2020-09-19 13:49 | Outpatient (CLI) | payer BC, SELFPAY ==
[2020-05-31 13:41] VITALS: BMI 38.1
[2020-07-23 15:48] VITALS: BMI 38.1
--- NOTE | 2020-09-19 15:14 | NEURO ---
NCS and/or EMG Patient Report Ordering Doctor: Cecile Alvarez DATE OF SERVICE: 09/19/20 Casi Flores presents for electrodiagnostic testing of the left upper limb. She reports numbness and pain in the left hand. Electrodiagnostic findings: Left median motor nerve demonstrates prolonged distal latency with normal amplitude and conduction velocity. Normal left ulnar motor response, including conduction across the elbow. Normal median ulnar F waves. Prolonged left median sensory latency at the wrist. Normal ulnar and radial sensory responses. On needle EMG, all muscles tested in the left upper limb showed no evidence of denervation with normal motor unit action potentials. Electrodiagnostic impression: This is an abnormal study in the left upper limb. 1. Electrodiagnostic findings demonstrate left-sided median mononeuropathy. This is consistent with a mild to moderate left carpal tunnel syndrome. If there are any further questions, please do not hesitate to contact me
== END ==
PROVIDERS: PCP Family Medicine; Referring Provider Orthopaedic Surgery; Visit Provider Orthopaedic Surgery
DX: M12.812 Other specific arthropathies, not elsewhere classified, left shoulder (principal)
CPT/HCPCS: 95886; 95910

== ENCOUNTER → 2020-11-23 14:05 | Outpatient (CLI) | payer OTHER, SELFPAY | PROVIDERS: PCP Family Medicine; Referring Provider Internal Medicine; Visit Provider Internal Medicine | DX: Z20.822 Contact with and (suspected) exposure to COVID-19 (principal) | CPT/HCPCS: 87635; U0005; U0003 ==

== ENCOUNTER 2021-02-20 15:46 | Outpatient (RCR) | payer OTHER, SELFPAY ==
--- NOTE | 2021-03-13 15:42 | HP.PTEVAL_ITS ---
Patient's Visit Information OPAL MAI is a 55 year old F referred to Physical Therapy by Dr. Cecile Alvarez DO with a diagnosis of Cervical DDD, OA of Left AC Joint, L Biceps Tendonitis. Date of Evaluation: 02/20/21 Physical Therapist: Jose Alberto Lewis DPT - Visit Plan Frequency: 2x /Week Duration: 4 Weeks Plan: Pt. is showing signs and symptoms of upper crossed syndrome. Have the pt. progress strengthening the deep cervical neck flexors and scapular retractors, stretching of the pecs and relieving tension in the upper trap. Pt. needs to work on increasing mobility in the thoracic spine and decreasing her pain in her shoulder. She did have a positive outcome to gentle manual traction of the cervical spine. The pt. would like dry-needling. - Subjective Pt. is a 55 yo female who presents to the clinic today with pain occurring at the medial side of the left bicep and along the left upper trapezius muscle. 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 She has had her pain for about 9 months and did have a decrease in pain when she got steroid injections into the shoulder about 6 months ago. To alleviate her symptoms, the pt. uses a TENS unit at home and takes pain medication. Her pain increases as the day goes on, after activity and is ranked a 3/10 most days, but can get up to an 8/10. She exhibits that reaching behind her back with her left arm is difficult and does cause pain. She is able to sleep throughout the night without pain, but prefers not to sleep on her left side. - Pain Left Shoulder Pain Intensity (Out of 10): 3 Pain Intensity Range: 8 L Upper/Mid Trap Pain Intensity (Out of 10): 3 Pain Intensity Range: 8 - Objective Posture: Severe rounded shoulders, forward head, excessive thoracic kyphosis, increased Cervical spine lordosis in both sitting and standing. MMT: Bilat Up per trap 5/5, R biceps 5/5, L biceps 4/5 with pain, Bilat brachialis 5/5, Bilat brachioradialis 5/5, Bilat shoulder abduction 5/5, Bilat shoulder flexion 5/5, Bilat elbow extension 5/5. ROM: Cervical ext, Bilat rotation, Bilat side- bending all WNL, flexion WNL with pain, Bilat shoulder flex, abduction all WNL, R IR 55deg, L IR 55deg with pain, R ER 60deg, L ER 55deg. Palpation: L Levator scapulae, Bilat suboccipitals, L upper/middle/lower trap all TTP. C5-C7 and T1- T7 TTP and hypomobile. Special Tests: + L painful arc, + L biceps load II test, Speeds was inconclusive-had pain with both supination and pronation, - L Dorman Jeff, - L drop arm, - L Lag sign, Lift off sign inconclusive due to pain, but could lift off of low back. Pt. presents to the clinic with shoulder pain and exhibits upper crossed syndrome. The pt. is hypomobile in the upper thoracic spine and is tender to palpation along the medial border of the scapula and the mid to low trapezius muscle on the left side. The pt. does have pain with cervical flexion, but exhibits full motion. The pt. is needing PT to address her impairments, increase her mobility in her thoracic spine, and strengthen the weak cervical neck flexors, as well as her scapular retractors. - Goals Goal 1:: LTG: Pt will be compliant and independent with her HEP. Goal Time Frame: 2-4 Weeks Goal 2:: LTG: Pt. will be able to work a full day of work with pain less than a 1-2/10. Goal 3:: LTG: Pt. will be a 5/5 in left biceps strength and will not report pain with this motion, so she can lift objects at work. - Rehabilitation Potential Physical Therapy Diagnosis: Pt. presents to the clinic with signs and symptoms consistent with shoulder/scapular complex pain and thoracic hypomobility. The pt. needs PT to increase her thoracic mobility, increase her cervical spine musculature, and decrease pain in the left shoulder and scapular region. Rehabilitation Potential: Good - Anticipated Interventions Patient/Client Instruction: Educate patient on: Condition, Plan of Care, Risk Factors, Benefits of Fitness Program For the Purpose of:: To improve health and function, To foster healthy habits, To improve decision making, To facilitate caregiver knowledge, To improve self management, To prevent re-injury Therapeutic Exercise to Include: Strength training, Endurance training, Body mechanics, Postural training, Active ROM, Scapular Strength/Stabilization For the Purpose of:: To decrease pain, To increase ROM, To improve muscle performance and motor function, To improve ability to perform ADL's, To increase tolerance to activity/condition/position, To increase flexibility/ROM, To improve endurance Manual Therapy Techniques to Include: Petrissage, Trigger point massage, Massage, Mobilization, Passive ROM, Functional dry needling For the Purpose of:: To decrease pain, To increase ROM, To improve muscle performance and motor function, To increase tolerance to activity/condition/position, To increase flexibility/ROM TENS: Yes Ultrasound (thermal/non thermal): Yes Intermittent cervical traction: Yes For the Purpose of:: To decrease pain, To increase ROM Thank you for the opportunity to evaluate your patient. For Medicare and Medicare HMO plans, please review the plan of care and approve it. It will need to be FAXED BACK to us at [phone] for Medicare purposes. For Medicare only, by signing this I certify the plan of care. Please let me know if there are questions or concerns regarding this plan of care. Physician Signature: Date:
--- NOTE | 2021-03-27 11:20 | HP.PT.NRP ---
OPAL MAI was seen in my office for initial evaluation on 02/20/21. The following Plan of Care was established for this patient: Initial Frequency: 2x /Week Initial Duration: 4 Weeks Patient/Client Instruction: Educate patient on: Condition, Plan of Care, Risk Factors, Benefits of Fitness Program For the Purpose of:: To improve health and function, To foster healthy habits, To improve decision making, To facilitate caregiver knowledge, To improve self management, To prevent re-injury Therapeutic Exercise to Include: Strength training, Endurance training, Body mechanics, Postural training, Active ROM, Scapular Strength/Stabilization For the Purpose of:: To decrease pain, To increase ROM, To improve muscle performance and motor function, To improve ability to perform ADL's, To increase tolerance to activity/condition/position, To increase flexibility/ROM, To improve endurance Manual Therapy Techniques to Include: Petrissage, Trigger point massage, Massage, Mobilization, Passive ROM, Functional dry needling For the Purpose of:: To decrease pain, To increase ROM, To improve muscle performance and motor function, To increase tolerance to activity/condition/position, To increase flexibility/ROM TENS: Yes Ultrasound (thermal/non thermal): Yes Intermittent cervical traction: Yes For the Purpose of:: To decrease pain, To increase ROM This patient was last seen in our office 02/20/21. Pertinent comments regarding their Physical therapy will appear below: Pt. was seen in PT for DN and neck pain. Pt. has not been seen in several weeks and will be DC from PT at this point in time. At this point I will be discontinuing this patient from physical therapy. I would be happy to see this patient again in the future if found appropriate by the physician. Thank you! Jose Alberto Lewis DPT
== END 2021-02-20 19:00 | disposition home or self-care (01) ==
LOC: PT 15:46
PROVIDERS: PCP Family Medicine; Referring Provider Orthopaedic Surgery; Visit Provider Orthopaedic Surgery
DX: M50.30 Other cervical disc degeneration, unspecified cervical region (principal); M19.012 Primary osteoarthritis, left shoulder; M75.22 Bicipital tendinitis, left shoulder
CPT/HCPCS: 97110; 97161

== ENCOUNTER → 2021-06-03 15:10 | Outpatient (CLI) | payer OTHER, SELFPAY ==
[2021-05-17 12:07] VITALS: BMI 38.1
[2021-06-03 16:08] LABS: Absolute Lymphocyte Count 2.25 X10^3/uL (0.83-4.51); Absolute Neutrophil Count 3.4 X10^3/uL (2.0-7.7); Basophil# 0.03 X10^3/uL; Basophil% 0.5 % (0-1); Eosinophil# 0.11 X10^3/uL; Eosinophils% 1.7 % (0-5); Hemoglobin 14.9 g/dL (12.0-15.0); Lymphocyte # 2.25 X10^3/ul (0.83-4.51); Lymphocyte % 35.1 % (19-41); Mean Corp Hgb Conc 33.9 g/dL (32-36); Mean Corpuscular Hgb 30.6 pg (27.0-32.0); Mean Corpuscular Volume 90.3 fL (81-99); Mean Platelet Vol. 9.5 fl (6.2-12.0); Monocyte# 0.55 X10^3/uL; Monocyte% 8.6 % (0-10); NRBC Flagged by Analyzer 0 % (0-5); Neutrophil # 3.44 X10^3/uL (2.7-7.7); Neutrophil % 53.6 % (47-70); Platelet Count 287 K/mm3 (150-450); RBC Distribution Width CV 12.9 % (11.6-14.6); RBC Distribution Width SD 42.7 fl (35.1-43.9); Red Blood Count 4.87 M/mm3 (4.2-5.4); White Blood Count 6.4 K/mm3 (4.4-11.0)
[2021-06-03 16:36] LABS: AST(SGOT) 31 U/L (15-37); Alanine Aminotransfer ALT/SGPT 43 U/L (13-56); Albumin, Serum 3.9 g/dL (3.2-5.0); Alkaline Phosphatase 94 U/L (45-117); Bilirubin, Direct 0.11 mg/dL (0.00-0.30); Globulin 3.6 g/dL (2.2-4.2); Protein, Total 7.5 g/dL (6.4-8.2)
[2021-06-04 09:04] LABS: Hepatitis B Surface Antibody Non-Reactive; Hepatitis B Surface Antigen Non-Reactive (Nonreactive); Hepatitis C Antibody Non-Reactive (Nonreactive)
[2021-06-06 12:50] LABS: Hepatitis B Core Ab Total Negative (Negative)
== END ==
PROVIDERS: PCP Family Medicine; Visit Provider Dermatology
DX: L40.0 Psoriasis vulgaris (principal); L40.8 Other psoriasis; L71.8 Other rosacea; L71.1 Rhinophyma; D22.5 Melanocytic nevi of trunk; L85.1 Acquired keratosis [keratoderma] palmaris et plantaris; Z79.899 Other long term (current) drug therapy; Z71.89 Other specified counseling
CPT/HCPCS: 36415; 80076; 85025; 86704; 86706; 86803; 87340

== ENCOUNTER → 2021-07-03 15:46 | Outpatient (CLI) | payer OTHER, SELFPAY ==
[2021-07-07 03:07] LABS: QNTFERON TB Mitogen Value > 10.00 IU/mL (.); QNTFERON TB Nil Value 0.29 IU/mL (.); QNTFERON TB1+ Ag Value 0.46 IU/mL (.); QNTFERON TB2+ Ag Value 0.92 IU/mL (.)
[2021-07-08 11:47] LABS: QNTIFERON TB Positive Criteria Positive (Negative)
== END ==
PROVIDERS: PCP Family Medicine; Visit Provider Dermatology
DX: Z79.899 Other long term (current) drug therapy (principal)
CPT/HCPCS: 86480

== ENCOUNTER → 2021-07-31 15:56 | Outpatient (CLI) | payer OTHER, SELFPAY ==
--- NOTE | 2021-07-31 16:05 | RAD_ITS ---
STUDY: X-RAY CHEST REASON FOR EXAM: Female, 55 years old. LATENT TB TECHNIQUE: Frontal and lateral views COMPARISON: 04/15/2019 FINDINGS: The lungs are clear and expanded. There is no demonstrated pleural abnormality. Normal size heart. Normal mediastinum and bennie. Normal visualized pulmonary arteries. Normal visualized aortic arch and descending thoracic aorta. Degenerative changes of the thoracic spine. Normal visualized ribs, clavicles, and shoulders. There is no demonstrated abnormality of the visualized soft tissue structures of the upper abdomen. RAD/Chest PA and Lateral IMPRESSION: Normal x-ray examination of the chest. Electronically Signed: Josh Domínguez DO at 16:40 EDT Tel [phone], Service support ,
== END ==
PROVIDERS: PCP Family Medicine; Referring Provider Internal Medicine Infectious Disease; Visit Provider Internal Medicine Infectious Disease
DX: Z22.7 Latent tuberculosis (principal)
CPT/HCPCS: 71046

== ENCOUNTER → 2021-08-26 08:58 | Outpatient (CLI) | payer OTHER, SELFPAY ==
[2021-08-26 10:28] LABS: Anion Gap 6 (5-15); BUN 20 mg/dL (7-18); BUN/Creat Ratio 25.6 RATIO (10-20); Calcium,Total 9.5 mg/dL (8.5-10.1); Chloride 107 mmol/L (98-107); Creatinine, Serum 0.78 mg/dL (0.55-1.02); EST Glomerular Filtration Rate 81 mL/min (>60); Est Glom Filt Rate - Afr Amer 98 mL/min (>60); Glucose 102 mg/dL (74-106); Potassium 3.7 mmol/L (3.5-5.1); Sodium Level 139 mmol/L (136-145)
== END ==
PROVIDERS: PCP Family Medicine; Referring Provider Orthopaedic Surgery; Visit Provider Orthopaedic Surgery
DX: I10 Essential (primary) hypertension (principal)
CPT/HCPCS: 36415; 80048

== ENCOUNTER → 2021-09-02 15:47 | Outpatient (CLI) | payer OTHER, SELFPAY ==
--- NOTE | 2021-09-02 15:48 | BI_ITS ---
MAMMOGRAPHY - BILATERAL SCREENING REASON FOR EXAM: Female, 55 years old. Routine annual screening examination. PERTINENT HISTORY: Non-contributory. TECHNIQUE: Digital bilateral breast viory (3D mammographic acquisition) in the CC and MLO projections. 2-D mediolateral oblique (MLO) and craniocaudad (CC) views of both breasts were obtained. CAD: Full Field Digital Mammography with Computer Added Detection was performed. COMPARISON: Comparison is made with prior examination dated 07/19/2020 and 05/25/2019. FINDINGS: Breast Composition: There are scattered areas of fibroglandular density. There are no dominant masses or suspicious calcifications. No other significant abnormalities are identified. There has been no significant change since the prior study. BI/SCRN MAMM (CAD)W/IVORY BILAT IMPRESSION: Stable bilateral screening mammogram. Yearly follow-up mammogram recommended. (A) ASSESSMENT CATEGORY: BIRADS Category 1: Negative. A letter regarding these results will be sent to the patient by the facility within 30 days. Approximately 10% of breast cancers are not detected by mammography. A normal mammogram should not delay biopsy of a clinically suspicious abnormality. [id number] Electronically Signed: John Bennett MD at 8:54 EST , Service support ,
== END ==
PROVIDERS: PCP Family Medicine; Referring Provider Family Medicine; Visit Provider Family Medicine
DX: Z12.31 Encounter for screening mammogram for malignant neoplasm of breast (principal)
CPT/HCPCS: 77063; 77067

== ENCOUNTER → 2021-09-09 16:00 | Outpatient (CLI) | payer OTHER, SELFPAY ==
[2021-09-16 14:17] LABS: HPV APTIMA, High Risk Negative (Negative)
== END ==
PROVIDERS: PCP Family Medicine; Visit Provider Obstetrics & Gynecology
DX: Z12.4 Encounter for screening for malignant neoplasm of cervix (principal); Z11.3 Encounter for screening for infections with a predominantly sexual mode of transmission
CPT/HCPCS: 87624; 88175; G0145

== ENCOUNTER → 2021-09-26 14:17 | Outpatient (CLI) | payer OTHER, SELFPAY ==
--- NOTE | 2021-09-26 14:20 | VDUE_ITS ---
Reason For Study: Pain Left Proximal Left jugular vein is spontaneous, widely patent, phasic, with no intraluminal echogenicity noted. Left subclavian vein is spontaneous, widely patent, phasic, with no intraluminal echogenicity noted. Left Arm Left axillary vein is spontaneous, patent, phasic, competent, compressible and demonstrates augmentation. Left brachial vein is compressible. Left cephalic vein is compressible. Left basilic vein is compressible. Left Lower Arm Left radial vein is compressible. Left ulnar vein is compressible. Patient Safety Prelim to Milagros. VL/Venous Duplex US, Unilateral Interpretation Summary Deep veins of the left upper extremity are patent and compressible segmentally. There is no evidence of deep vein thrombosis. The superficial veins of the left upper extremity, the basilic and cephalic veins, are patent and compressible. There is no evidence of left upper extremit y superficial thrombophlebits involving the veins imaged. Ordering Physician: MEI WARREN Referring Physician: Aleks Gonzalez M.D. Performed By: Tere Hull RVT ?
== END ==
PROVIDERS: PCP Family Medicine
DX: M75.02 Adhesive capsulitis of left shoulder (principal); M25.512 Pain in left shoulder; M75.42 Impingement syndrome of left shoulder; M75.22 Bicipital tendinitis, left shoulder; M79.662 Pain in left lower leg; Z48.02 Encounter for removal of sutures; Z47.89 Encounter for other orthopedic aftercare
CPT/HCPCS: 93971

== ENCOUNTER → 2021-10-02 14:28 | Outpatient (CLI) | payer OTHER, SELFPAY ==
[2021-10-02 15:25] LABS: Absolute Lymphocyte Count 1.26 X10^3/uL (0.83-4.51); Absolute Neutrophil Count 4.2 X10^3/uL (2.0-7.7); Basophil# 0.05 X10^3/uL; Basophil% 0.8 % (0-1); Eosinophil# 0.16 X10^3/uL; Eosinophils% 2.6 % (0-5); Hematocrit 45.1 % (37-47); Hemoglobin 15.6 g/dL (12.0-15.0); Lymphocyte # 1.26 X10^3/ul (0.83-4.51); Lymphocyte % 20.3 % (19-41); Mean Corp Hgb Conc 34.6 g/dL (32-36); Mean Corpuscular Hgb 30.4 pg (27.0-32.0); Mean Corpuscular Volume 87.9 fL (81-99); Mean Platelet Vol. 9.7 fl (6.2-12.0); Monocyte# 0.52 X10^3/uL; Monocyte% 8.4 % (0-10); NRBC Flagged by Analyzer 0 % (0-5); Neutrophil % 67.6 % (47-70); Platelet Count 279 K/mm3 (150-450); RBC Distribution Width CV 12.7 % (11.6-14.6); RBC Distribution Width SD 41.1 fl (35.1-43.9); Red Blood Count 5.13 M/mm3 (4.2-5.4); White Blood Count 6.2 K/mm3 (4.4-11.0)
[2021-10-02 16:06] LABS: ALB/GLOB Ratio 0.9 RATIO (0.9-2.4); AST(SGOT) 29 U/L (15-37); Alanine Aminotransfer ALT/SGPT 43 U/L (13-56); Albumin, Serum 3.9 g/dL (3.2-5.0); Alkaline Phosphatase 104 U/L (45-117); Anion Gap 8 (5-15); BUN 17 mg/dL (7-18); BUN/Creat Ratio 20.6 RATIO (10-20); Calcium,Total 9.9 mg/dL (8.5-10.1); Chloride 101 mmol/L (98-107); Creatinine, Serum 0.82 mg/dL (0.55-1.02); EST Glomerular Filtration Rate 76 mL/min (>60); Est Glom Filt Rate - Afr Amer 93 mL/min (>60); Globulin 4.2 g/dL (2.2-4.2); Glucose 161 mg/dL (74-106); Potassium 3.1 mmol/L (3.5-5.1); Protein, Total 8.1 g/dL (6.4-8.2); Sodium Level 137 mmol/L (136-145); T4 Free Direct 1.02 ng/dL (0.76-1.46); Thyroid Stim Hormone (TSH) 1.13 uIU/mL (0.358-3.74)
[2021-10-03 11:10] LABS: Hemoglobin A1c 5.4 % (3.8-5.6)
== END ==
PROVIDERS: Physician Assistant; PCP Family Medicine; Visit Provider Family Medicine
DX: R00.0 Tachycardia, unspecified (principal); I10 Essential (primary) hypertension
CPT/HCPCS: 36415; 80053; 83036; 84439; 84443; 85025

== ENCOUNTER 2021-10-21 12:23 | Outpatient (CLI) | payer BC, SELFPAY ==
--- NOTE | 2021-10-21 12:32 | EKG12_ITS ---
Test Reason : TACHY Blood Pressure : / mmHG Vent. Rate : 104 BPM Atrial Rate : 104 BPM P-R Int : 174 ms QRS Dur : 152 ms QT Int : 388 ms P-R-T Axes : 041 -68 002 degrees QTc Int : 510 ms Sinus tachycardia Right bundle branch block Left anterior fascicular block Bifascicular block Abnormal ECG Confirmed by CORAZON ELDER, WOJCIECH ([id number]), department editor PABLITO CARRANZA ([id number]) on 10/21/2021 2:04:02 PM Referred By: Munira Shields Confirmed By:WOJCIECH CHANDRA MD
== END 2021-10-21 23:59 | disposition short-term general hospital (02) ==
LOC: PSN 12:26
PROVIDERS: PCP Family Medicine; Referring Provider Physician Assistant; Visit Provider Physician Assistant
DX: R00.0 Tachycardia, unspecified (principal); I10 Essential (primary) hypertension
CPT/HCPCS: 93005; 93225; 93226

== ENCOUNTER 2021-11-29 15:30 | Outpatient (RCR) | payer BC, OTHER, SELFPAY ==
--- NOTE | 2021-10-10 11:01 | HP.PTEVAL ---
Patient's Visit Information OPAL MAI is a 55 year old F referred to Physical Therapy by MEI WARREN with a diagnosis of L shoulder arthroscopy 09/11/21. Date of Evaluation: 10/09/21 Physical Therapist: David Shipman, PT, ATC - Visit Plan Frequency: 2-3x /Week Duration: 4-6 Weeks Plan: PROM only for 2 weeks. Beginb AROM at week six and progress as christel - Subjective DOS: 09/11/21. Pt had L shoulder arthroscopy to repair subscapularis and biceps tenodesis, as well as to clean out other degeneratvie changes. Pt reports she is still in a lot of pain today. Pt reports her neck muscles get tight from wearing her sling. Pt is R hand dominant. Pt notes she is not sure why her L shoulder is the one that became hurt, but notes she does have to do a lot of heavy lifting at work and believes this may be why she injured her shoulder. Pt denies any tingling or numbness in L UE. Pt reports occasional sleep difficulty secodary to pain. 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 Pt notes she has sig difficulty with overhead lifting. Pt notes she has not been doing any HEP at this time as she wasnt given anything from the doctor. Pt is limited from all activity at this time. pain ranges from 3-5/10 - Pain L Shoulder Pain Intensity (Out of 10): 3 Pain Intensity Range: 5 - Objective Neuro: B UE sensation is WNL to light touch. B bicepital reflex= 2/3. ROM: R shoulder AROM flex= 180, abd= 165, ER= 40; L shoulder PROM flex= 50, abd= 50. MMT: R shoulder is 5/5 throughout. L shoulder Not tested - Balance/Special Test Scores Quick DASH Score: 72.7250 - Goals Goal 1:: Decrease L shoulder pain x 50% to aid with sleep Goal Time Frame: 4-6 Weeks Goal 2:: Increase L shoulder flex and abd ROM x 30 degrees to aid with overhead lifting Goal Time Frame: 4-6 Weeks Goal 3:: Increase L shoulder strength x 1 grade to aid with IADL's Goal Time Frame: 4-6 Weeks Goal 4:: I with HEP Goal Time Frame: 4-6 Weeks - Rehabilitation Potential Physical Therapy Diagnosis: Pt has L shoulder pain, weakness, and limited ROM secondary to L shoulder arthroscopy Rehabilitation Potential: Good - Anticipated Interventions Patient/Client Instruction: Educate patient on: Condition, Plan of Care For the Purpose of:: To improve self management Therapeutic Exercise to Include: Strength training, Endurance training, Flexibilty training, Passive ROM, Active ROM, Scapular Strength/Stabilization For the Purpose of:: To decrease pain, To increase ROM, To improve muscle performance and motor function Cryotherapy (ice pack, ice massage): Yes For the Purpose of:: To decrease pain Thank you for the opportunity to evaluate your patient. For Medicare and Medicare HMO plans, please review the plan of care and approve it. It will need to be FAXED BACK to us at [phone] for Medicare purposes. For Medicare only, by signing this I certify the plan of care. Please let me know if there are questions or concerns regarding this plan of care. Physician Signature: Date:
--- NOTE | 2021-11-01 14:12 | HP.PTREVAL ---
MEI WARREN, It has been my pleasure to treat OPAL MAI over the last 9 visits for L shoulder arthroscopy 09/11/21. Please see the progress note below for an update on the physical therapy plan of care! Subjective: I am starting to feel better Objective/Function: L shoulder pain ranges from 2-3/10. L shoulder AROM: Flex= 70, abd= 70, ER= 0. L shoulder PROM: flex= 95, abd= 95, ER= 0 Plan Plan: Cont after Dr visit next week Balance/Gait/Functional tests - Balance/Special Test Scores Quick DASH Score: 40.9075 Goals Goal 1:: Decrease L shoulder pain x 50% to aid with sleep Goal Time Frame: 4-6 Weeks Goal 2:: Increase L shoulder flex and abd ROM x 30 degrees to aid with overhead lifting Goal Time Frame: 4-6 Weeks Goal 3:: Increase L shoulder strength x 1 grade to aid with IADL's Goal Time Frame: 4-6 Weeks Goal 4:: I with HEP Goal Time Frame: 4-6 Weeks Anticipated Interventions Patient/Client Instruction: Educate patient on: Condition, Plan of Care For the Purpose of:: To improve self management Therapeutic Exercise to Include: Strength training, Endurance training, Flexibilty training, Passive ROM, Active ROM, Scapular Strength/Stabilization For the Purpose of:: To decrease pain, To increase ROM, To improve muscle performance and motor function Cryotherapy (ice pack, ice massage): Yes For the Purpose of:: To decrease pain Please do not hesitate to contact me at [phone] by phone or if you have questions or concerns regarding this new plan of care! Sincerely, David Shipman, PT, ATC
--- NOTE | 2022-04-01 09:31 | HP.PT.NRP ---
OPAL MAI was seen in my office for initial evaluation on 10/09/21. The following Plan of Care was established for this patient: Initial Frequency: 2-3x /Week Initial Duration: 4-6 Weeks Patient/Client Instruction: Educate patient on: Condition, Plan of Care For the Purpose of:: To improve self management Therapeutic Exercise to Include: Strength training, Endurance training, Flexibilty training, Passive ROM, Active ROM, Scapular Strength/Stabilization For the Purpose of:: To decrease pain, To increase ROM, To improve muscle performance and motor function Cryotherapy (ice pack, ice massage): Yes For the Purpose of:: To decrease pain This patient was last seen in our office . Pertinent comments regarding their Physical therapy will appear below: Pt was last treated for shoulder pain on the date of 11/29/21. Pt has not returned through todays date and is discontinued at this time. At this point I will be discontinuing this patient from physical therapy. I would be happy to see this patient again in the future if found appropriate by the physician. Thank you! David Shipman, PT, ATC Balance/Gait/Functional tests - Balance/Special Test Scores Quick DASH Score: 40.9075
== END 2021-11-29 19:00 | disposition home or self-care (01) ==
LOC: PT 15:30
PROVIDERS: PCP Family Medicine
DX: M75.02 Adhesive capsulitis of left shoulder (principal); M25.512 Pain in left shoulder; M75.42 Impingement syndrome of left shoulder; M75.22 Bicipital tendinitis, left shoulder; M79.622 Pain in left upper arm
CPT/HCPCS: 97110; 97140; 97161; 97164

== ENCOUNTER → 2022-09-10 | Outpatient (CLI) | payer BC, SELFPAY ==
[2022-09-19 10:16] LABS: HPV APTIMA, High Risk Negative (Negative)
== END | disposition home or self-care (01) ==
LOC: LABSPEC 16:44
PROVIDERS: PCP Family Medicine; Visit Provider Obstetrics & Gynecology
DX: N76.0 Acute vaginitis (principal); Z12.4 Encounter for screening for malignant neoplasm of cervix
CPT/HCPCS: 87624; 88175; G0145

== ENCOUNTER → 2022-09-24 | Outpatient (CLI) | payer BC, SELFPAY ==
--- NOTE | 2022-09-24 15:47 | BI_ITS ---
MAMMOGRAPHY - BILATERAL SCREENING REASON FOR EXAM: Female, 56 years old. Routine annual screening examination. PERTINENT HISTORY: Non-contributory. Remote left excisional breast biopsy. TECHNIQUE: Digital bilateral breast ivory (3D mammographic acquisition) in the CC and MLO projections. 2-D mediolateral oblique (MLO) and craniocaudad (CC) views of both breasts were obtained. CAD: Full Field Digital Mammography with Computer Added Detection was performed. COMPARISON: Comparison is made with prior study dated 09/02/2021 and 07/19/2020. FINDINGS: Breast Composition: There are scattered areas of fibroglandular density. There are no dominant masses or suspicious calcifications. No other significant abnormalities are identified. There has been no significant change since the prior study. BI/SCRN MAMM (CAD)W/IVORY BILAT IMPRESSION: Stable bilateral screening mammogram. Yearly follow-up mammogram recommended. (A) ASSESSMENT CATEGORY: BIRADS Category 1: Negative. A letter regarding these results will be sent to the patient by the facility within 30 days. Approximately 10% of breast cancers are not detected by mammography. A normal mammogram should not delay biopsy of a clinically suspicious abnormality. [id number] Electronically Signed: John Bennett MD at 8:08 EST ,
== END | disposition home or self-care (01) ==
LOC: OPBI 15:45
PROVIDERS: PCP Family Medicine; Visit Provider Obstetrics & Gynecology
DX: Z12.31 Encounter for screening mammogram for malignant neoplasm of breast (principal); Z92.89 Personal history of other medical treatment
CPT/HCPCS: 77063; 77067

== ENCOUNTER → 2023-06-17 | Outpatient (CLI) | payer BC, SELFPAY ==
[2023-06-17 16:32] LABS: Absolute Lymphocyte Count 2.73 X10^3/uL (0.83-4.51); Absolute Neutrophil Count 2.4 X10^3/uL (2.0-7.7); Basophil# 0.03 X10^3/uL; Basophil% 0.5 % (0-1); Eosinophils% 1.8 % (0-5); Hematocrit 41.5 % (37-47); Lymphocyte # 2.73 X10^3/ul (0.83-4.51); Lymphocyte % 48.2 % (19-41); Mean Corp Hgb Conc 33.7 g/dL (32-36); Mean Corpuscular Hgb 30.4 pg (27.0-32.0); Mean Corpuscular Volume 90.2 fL (81-99); Mean Platelet Vol. 9.6 fl (6.2-12.0); Monocyte# 0.39 X10^3/uL; Monocyte% 6.9 % (0-10); NRBC Flagged by Analyzer 0 % (0-5); Neutrophil # 2.39 X10^3/uL (2.7-7.7); Neutrophil % 42.2 % (47-70); Platelet Count 226 K/mm3 (150-450); RBC Distribution Width CV 12.6 % (11.6-14.6); RBC Distribution Width SD 41.7 fl (35.1-43.9); White Blood Count 5.7 K/mm3 (4.4-11.0)
[2023-06-17 17:20] LABS: ALB/GLOB Ratio 1.1 RATIO (0.9-2.4); AST(SGOT) 23 U/L (15-37); Alanine Aminotransfer ALT/SGPT 32 U/L (13-56); Albumin, Serum 3.7 g/dL (3.2-5.0); Alkaline Phosphatase 107 U/L (45-117); Anion Gap 8 (5-15); BUN 16 mg/dL (7-18); BUN/Creat Ratio 19.7 RATIO (10-20); Calcium,Total 9.3 mg/dL (8.5-10.1); Chloride 100 mmol/L (98-107); Cholesterol 235 mg/dL (200); Creatinine, Serum 0.81 mg/dL (0.55-1.02); EST Glomerular Filtration Rate 77 mL/min (>60); Est Glom Filt Rate - Afr Amer 93 mL/min (>60); Globulin 3.5 g/dL (2.2-4.2); Glucose 103 mg/dL (74-106); High Density Lipoprotein 54 mg/dL; Potassium 3.2 mmol/L (3.5-5.1); Protein, Total 7.2 g/dL (6.4-8.2); Sodium Level 136 mmol/L (136-145); Thyroid Stim Hormone (TSH) 2.18 uIU/mL (0.358-3.74); Triglycerides 215 mg/dL; Very Low Density Lipoprotein 43 mg/dL (5-40)
== END | disposition home or self-care (01) ==
LOC: BIMLAB 16:05
PROVIDERS: PCP Family Medicine; Visit Provider Family Medicine
DX: I10 Essential (primary) hypertension (principal)
CPT/HCPCS: 36415; 80053; 80061; 84443; 85025

== ENCOUNTER → 2023-09-25 | Outpatient (CLI) | payer BC, SELFPAY ==
--- NOTE | 2023-09-25 15:50 | BI_ITS ---
MAMMOGRAPHY - BILATERAL SCREENING REASON FOR EXAM: Female, 57 years old. Routine annual screening examination. PERTINENT HISTORY: Non-contributory. TECHNIQUE: Digital bilateral breast ivory (3D mammographic acquisition) in the CC and MLO projections. 2-D mediolateral oblique (MLO) and craniocaudad (CC) views of both breasts were obtained. CAD: Full Field Digital Mammography with Computer Added Detection was performed. COMPARISON: Comparison is made with prior study dated September 24, 2022 and September 02, 2021. FINDINGS: Breast Composition: There are scattered areas of fibroglandular density. There is a 5 mm x 3.8 mm well-defined nodule in the upper central portion of the right breast. Correlation with ultrasound is recommended. No other significant abnormalities are identified. BI/SCRN MAMM (CAD)W/IVORY BILAT IMPRESSION: 5 mm x 3.8 mm well-defined nodule in the upper central portion of the right breast. Correlation with ultrasound is recommended. ASSESSMENT CATEGORY: BIRADS Category 0: Incomplete. Need additional imaging evaluation. A letter regarding these results will be sent to the patient by the facility within 30 days. Approximately 10% of breast cancers are not detected by mammography. A normal mammogram should not delay biopsy of a clinically suspicious abnormality. [id number] Electronically Signed: John Bennett MD at 8:39 EST ,
== END | disposition home or self-care (01) ==
LOC: OPBI 15:49
PROVIDERS: PCP Family Medicine; Referring Provider Family Medicine; Visit Provider Family Medicine
DX: Z12.31 Encounter for screening mammogram for malignant neoplasm of breast (principal)
CPT/HCPCS: 77063; 77067

== ENCOUNTER → 2023-10-08 | Outpatient (CLI) | payer BC, SELFPAY ==
--- NOTE | 2023-10-08 12:12 | US_ITS ---
STUDY: ULTRASOUND BREAST - RIGHT REASON FOR EXAM: Female, 57 years old. Abnormal screening mammogram. TECHNIQUE: Axial and longitudinal images of the RIGHT breast were performed with a high resolution ultrasound transducer. # OF IMAGES: 23 COMPARISON: Comparison is made with prior mammogram dated September 25, 2023. FINDINGS: RIGHT Breast: The mammographic abnormality corresponds to a 3 mm x 5 mm x 4 mm cyst with thick leon at the 1:00 position breast at 7 cm from the nipple. Aspiration is recommended. US/Breast Limited Unilateral IMPRESSION: The mammographic abnormality corresponds to a 3 mm x 5 mm x 4 mm thick-walled cyst at the 1:00 position of the breast at 7 cm from the nipple. Aspiration is recommended. ASSESSMENT CATEGORY: BIRADS Category 4: Suspicious - Biopsy Should Be Considered. A letter regarding these results will be sent to the patient by the facility within 30 days. Electronically Signed: John Bennett MD at 12:53 EST ,
== END | disposition home or self-care (01) ==
PROVIDERS: PCP Family Medicine; Referring Provider Family Medicine; Visit Provider Family Medicine
DX: R92.8 Other abnormal and inconclusive findings on diagnostic imaging of breast (principal)
CPT/HCPCS: 76642

== ENCOUNTER → 2023-11-04 | Outpatient (CLI) | payer BC, SELFPAY ==
--- NOTE | 2023-11-04 10:16 | US_ITS ---
STUDY: ULTRASOUND BREAST - RIGHT REASON FOR EXAM: Female, 57 years old. Right breast mass. TECHNIQUE: Axial and longitudinal images of the RIGHT breast were performed with a high resolution ultrasound transducer. # OF IMAGES: 8 COMPARISON: Comparison is made with prior study dated October 08, 2023. FINDINGS: RIGHT Breast: The superior portion of the right breast was examined with ultrasound. No sonographic abnormality is seen at this time. The previously seen cystic nodule is not seen at this time. US/Breast Limited Unilateral IMPRESSION: No sonographic abnormalities seen at this time. ASSESSMENT CATEGORY: BIRADS Category 1: Negative. A letter regarding these results will be sent to the patient by the facility within 30 days. Electronically Signed: John Bennett MD at 8:42 EST ,
--- NOTE | 2023-11-04 11:18 | PCM.PN.BLA ---
Progress Note Previous lesion of the right breast 1:00 7 cm from the nipple --unable to be found with ultrasound thus no biopsy done. Plan for follow-up in 1 month patient is agreeable to plan. 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 Next of kin: [place] law dictates a PRIORITY LIST for identifying legal decision-maker/legal next of kin in the following order (LNOK): 1st: The patient?s legal guardian, if any 2nd: The patient's spouse (if status is questionable, consult Risk Management) 3rd: The patient?s adult child(alondra) (majority, if multiple children) 4th: The patient?s parents 5th: The patient?s adult siblings (majority, if multiple children siblings)
== END | disposition home or self-care (01) ==
PROVIDERS: PCP Family Medicine; Referring Provider Surgery; Visit Provider Surgery
DX: N63.10 Unspecified lump in the right breast, unspecified quadrant (principal)
CPT/HCPCS: 76642

== ENCOUNTER → 2023-12-04 | Outpatient (CLI) | payer BC, SELFPAY ==
--- NOTE | 2023-12-04 14:53 | US_ITS ---
STUDY: ULTRASOUND BREAST - RIGHT REASON FOR EXAM: Female, 58 years old. One month follow-up following attempted breast biopsy. TECHNIQUE: Axial and longitudinal images of the RIGHT breast were performed with a high resolution ultrasound transducer. # OF IMAGES: 23 COMPARISON: Comparison is made with prior ultrasound examination dated November 04, 2023. FINDINGS: RIGHT Breast: The upper aspect of the right breast was examined with ultrasound. 3 mm x 3 mm x 2 mm cyst at the 12:00 position of the breast at 8 cm from the nipple. US/Breast Limited Unilateral IMPRESSION: 3 mm x 3 mm x 2 mm cyst at the 12:00 position of the breast at the 8 cm from nipple. ASSESSMENT CATEGORY: BIRADS Category 2: Benign. A letter regarding these results will be sent to the patient by the facility within 30 days. Electronically Signed: John Bennett MD at 9:28 EST ,
[2023-12-04 16:39] LABS: Anion Gap 6 (5-15); BUN 19 mg/dL (7-18); BUN/Creat Ratio 22.4 RATIO (10-20); Chloride 105 mmol/L (98-107); Creatinine, Serum 0.85 mg/dL (0.55-1.02); EST Glomerular Filtration Rate 74 mL/min (>60); Est Glom Filt Rate - Afr Amer 89 mL/min (>60); Glucose 97 mg/dL (74-106); Potassium 4.1 mmol/L (3.5-5.1); Sodium Level 140 mmol/L (136-145)
--- OUTSIDE RECORDS SUMMARY | 2023-12-04 16:54 | XMS RPT_ITS | CCD ---
Author Name Unknown Address [address] [place] [address] Organization [facility] Results Test Name Value Interpretation Reference Range Facil ity Summary Purpose Family History No Family History Records Found Advance Directives No Advanced Directives Records Found Additional Source Comments INFORMATION SOURCE (unrecogn ized section and content) FOR RECORDS PERTAINING TO PATIENTS WHO ARE OR HAVE BEEN ENROLLED IN A CHEMICAL DEPENDENCY/SUBSTANCEABUSE PROGRAM, SOME INFORMATION MAY BE OMITTED. This clinical summary was aggregated from multiple sources. Caution should be exercised in using it in the provision of clinical care. This summary normalizes information from multiple sources, and as a consequence, information in this document may materially change the coding, format and clinical context of patient data. In addition, data may be omitted in some cases. CLINICAL DECISIONS SHOULD BE BASED ON THE PRIMARY CLINICAL RECORDS. [employer] provides no warranty or guarantee of the accuracy or completeness of information in this document.
== END | disposition home or self-care (01) ==
PROVIDERS: PCP Family Medicine; Referring Provider Surgery; Visit Provider Surgery
DX: R92.8 Other abnormal and inconclusive findings on diagnostic imaging of breast (principal); E87.6 Hypokalemia
CPT/HCPCS: 36415; 76642; 80048

== ENCOUNTER → 2024-09-27 | Outpatient (CLI) | payer BC, SELFPAY ==
--- NOTE | 2024-09-27 15:48 | BI_ITS ---
MAMMOGRAPHY - BILATERAL SCREENING REASON FOR EXAM: Female, 58 years old. Routine annual screening examination. PERTINENT HISTORY: Non-contributory. TECHNIQUE: Digital bilateral breast ivory (3D mammographic acquisition) in the CC and MLO projections. 2-D mediolateral oblique (MLO) and craniocaudad (CC) views of both breasts were obtained. CAD: Full Field Digital Mammography with Computer Added Detection was performed. COMPARISON: Comparison is made with prior study dated September 25, 2023 and September 24, 2022. FINDINGS: Breast Composition: There are scattered areas of fibroglandular density. There are no dominant masses or suspicious calcifications. The previously seen 3.8 mm well-defined nodule in the upper central portion of the right breast is not seen at this No other significant abnormalities are identified. There has been no significant change since the prior study. BI/SCRN MAMM (CAD)W/IVORY BILAT IMPRESSION: Stable bilateral screening mammogram. Yearly follow-up mammogram recommended. (A) ASSESSMENT CATEGORY: BIRADS Category 2: Benign. A letter regarding these results will be sent to the patient by the facility within 30 days. Approximately 10% of breast cancers are not detected by mammography. A normal mammogram should not delay biopsy of a clinically suspicious abnormality. [id number] Electronically Signed: John Bennett MD at 8:00 EST ,
== END | disposition home or self-care (01) ==
LOC: OPBI 15:48
PROVIDERS: PCP Family Medicine; Referring Provider Nurse Practitioner; Visit Provider Nurse Practitioner
DX: Z12.31 Encounter for screening mammogram for malignant neoplasm of breast (principal)
CPT/HCPCS: 77063; 77067

== ENCOUNTER → 2025-05-02 | Outpatient (CLI) | payer BC, SELFPAY ==
--- OUTSIDE RECORDS SUMMARY | 2025-05-02 21:19 | XMS RPT_ITS | CCD ---
Author Organization [facility] Care Team Providers Care Direct Support Staff Member Name Role Phone Dr. Kai Gonzalez Primary Care Provider Dr. Kai Gonzalez Referring Provider Anton CARLSON, ALDO-Yaya Goode Attending Provider [phone] Dr. Kai Gonzalez Primary Care Provider Dr. Kai Gonzalez Attending Provider [phone] Kai Gonzalez Referring Provider [phone] Kai Gonzalez Primary Care Provider [phone] Dr. Kai Gonzalez Attending Provider [phone] Kai Gonzalez Referring Provider [phone] LANI Campos Attending Provider LANI Lucio Attending Provider Dr. Kai Gonzalez Primary Care Provider [phone] Dr. Kai Gonzalez Referring Provider [phone] Jeannie Akbar Attending Provider Dr. Jeannie Akbar Referring Provider Dr. Jeannie Akbar Other Provider Dr. Robert Escalona Attending Provider [phone] Kai Gonzalez Referring Unavailable Kai Gonzalez Primary Care Unavailable Medardo Mesa Attending Unavailable Kai Gonzalez Referring Unavailable Pablo Lucio Attending Unavailable Kai Gonzalez Primary Care Unavailable Kai Gonzalez Primary Care Unavailable Kai Gonzalez Referring Unavailable Arely Naylor NP Attending Unavailable Kai Gonzalez R Primary Care Unavailable Anjali Torres Referring Unavailable Anjali Torres Attending Unavailable Kai Gonzalez Referring Unavailable Kai Gonzalez Primary Care Unavailable Pablo Lucio Attending Unavailable Dr. Kai Gonzalez DO Primary Care Provider Dr. Kai Gonzalez DO Referring Provider [phone] Arely Greenberg Attending Provider Medications Current Medications Medication Drug Class(es) Dates Sig (Normalized) Sig (Original) 200 actuat albuterol 0.09 mg/actuat dry powder inhaler (20 sources) beta2-Adrenergic Agonist Start: 05-02-2025 Albuterol Sulfate 90 mcg/actuation aerosol powdr breath activated Active 2 NMA INHALATION EVERY 4-6 HOURS as needed May 02, 2025 12:00am Start: 11-07-2021 End: 02-01-2025 Albuterol Sulfate 90 mcg/act uation HFA aerosol inhaler Discontinued 2 NMA INHALATION EVERY 6 HOURS as needed for shortness of breath or wheezing 8.5 October 07, 2024 3:17pm February 01, 2025 10:47am Start: 11-07-2021 End: 06-30-2023 take 1 puff(s) by inhalation every six hours Albuterol Sulfate Discontinued 2 PUFF INHALATION EVERY 6 HOURS 8.5 April 14, 2023 10:55am June 30, 2023 3:51pm Start: 08-23-2021 End: 02-01-2025 take 0.63 mg by inhalation every four hours as needed for wheezing Albuterol Sulfate 0.63 mg/3 mL solution for nebulization Discontinued 0.63 mg INHALATION Q4H as needed for wheezing 90 August 30, 2024 10:20am February 01, 2025 10:47am Start: 06-01-2019 End: 02-21-2021 Albuterol Sulfate (Ventolin Hfa) 90 mcg/actuation HFA aerosol inhaler Discontinued 2 NMA INHALATION EVERY 6 HOURS as needed for shortness of breath or wheezing 18 June 01, 2019 3:59pm February 21, 2021 2:35pm Start: 06-01-2019 End: 02-21-2021 take 1 puff(s) by inhalation every six hours Albuterol Sulfate (Ventolin Hfa) 90 mcg/actuation HFA aerosol inhaler Discontinued 2 PUFF INHALATION EVERY 6 HOURS June 01, 2019 2:59pm February 21, 2021 1:35pm Start: 07-14-2018 End: 02-21-2021 take 0.63 mg by inhalation every four hours as needed for wheezing Albuterol Sulfate 0.63 mg/3 mL solution for nebulization Discontinued 0.63 mg INHALATION Q4H as needed for wheezing August 17, 2020 12:30pm February 21, 2021 2:35pm Start: 07-14-2018 End: 06-01-2019 Albuterol Sulfate (Ventolin Hfa) 90 mcg/actuation HFA aerosol inhaler Discontinued 2 NMA INHALATION EVERY 6 HOURS as needed for shortness of breath or wheezing 05 04October 11, 2018 9:45am June 01, 2019 3:59pm Start: 07-14-2018 End: 06-01-2019 take 1 puff(s) by inhalation every six hours Albuterol Sulfate (Ventolin Hfa) 90 mcg/actuation HFA aerosol inhaler Discontinued 2 PUFF INHALATION EVERY 6 HOURS October 11, 2018 8:45am June 01, 2019 2:59pm estradiol 0.1 mg/ml vaginal cream (1 source) Estrogen Start: 05-02-2025 Estradiol 0.01 % (0.1 mg/gram) cream Active 0 VAGINAL .COMPLEX 42.5 2 May 02, 2025 12:00am small amount(.25mg) as directed vaginal every other day X 4 weeks then twice a week; hydroCHLOROthiazide 25 mg / lisinopril 20 mg oral tablet (20 sources) Thiazide Diuretic, Angiotensin Converting Enzyme Inhibitor Start: 05-20-2018 End: 01-17-2025 Lisinopril-Hydrochlo rothiazide 20-25 mg tablet Active 1 {tbl} PO daily January 17, 2025 9:20am Essential hypertension Essential (primary) hypertension HTN Start: 05-20-2018 End: 11-12-2023 take 1 tablet by mouth once daily Lisinopril-Hydrochlorothiazide Discontin ued 1 TABLET PO daily May 12, 2023 10:09am June 17, 2023 2:56pm Completed/Discontinued Medications Medication Drug Class(es) Dates Sig (Normalized) Sig (Original) acetaminophen 325 mg oral tablet (9 sources) Start: 07-01-2019 End: 02-01-2025 Acetaminophen 325 MG tablet Discontinued 500 mg PO EVERY 4 HOURS NEEDED as needed for Mild-Moderate Pain (-02/25) 0 July 01, 2019 12:00am February 01, 2025 10:47am Start: 07-01-2019 take 500 mg by mouth every four hours as needed Acetaminophen Active 500 MG PO EVERY 4 HOURS NEEDED June 30, 2019 11:00pm acetaminophen 21.7 mg/ml / dextromethorphan hydrobromide 0.667 mg/ml / guaiFENesin 13.3 mg/ml / phenylephrine hydrochloride 0.333 mg/ml oral solution (9 sources) Uncompetitive A-qphyno-I-aspartate Receptor Antagonist, Sigma-1 Agonist, alpha-1 Adrenergic Agonist Start: 01-06-2019 End: 01-18-2019 Jxauwvatd-Pp-Pxnbgpqk-Guaife n (Tylenol Cold And Flu Severe) 6-13-464-200 mg/15 mL liquid Discontinued mL PO 0 January 06, 2019 12:00am January 18, 2019 1:13pm Start: 01-06-2019 End: 01-18-2019 Yqyrbpphu-Nu-Edekuers-Guaife n (Tylenol Cold And Flu Severe) 8-07-933-200 mg/15 mL liquid Discontinued ML PO January 05, 2019 11:00pm January 18, 2019 12:13pm amoxicillin 875 mg oral tablet (6 sources) Penicillin-class Antibacterial Start: 07-27-2024 End: 02-01-2025 take 1 tablet by mouth every twelve hours Amoxicillin 875 mg tablet Discontinued 875 mg PO Q12H 20 0 July 27, 2024 12:00am February 01, 2025 10:48am Start: 09-22-2023 End: 10-02-2023 take 1 capsule by mouth three times daily Amoxicillin 500 mg capsule Discontinued 500 mg PO THREE TIMES A DAY 30 10 0 September 22, 2023 1:00am October 01, 2023 1:00am October 02, 2023 1:05am amoxicillin 875 mg / clavulanate 125 mg oral tablet (20 sources) Penicillin-class Antibacterial Start: 11-01-2024 End: 02-01-2025 Amoxicillin-Pot Clavulanate 875-125 mg tablet Discontinued 1 {tbl} PO TWICE A DAY November 01, 2024 1:00am February 01, 2025 10:48am Start: 12-03-2023 End: 01-06-2024 Amoxicillin-Pot Clavulanate 875-125 mg tablet Discontinued 1 {tbl} PO Q12H 20 December 03, 2023 1:00am January 06, 2024 10:29am Start: 12-03-2023 take 1 tablet by mario th every twelve hours Amoxicillin-Pot Clavulanate Active 1 TABLET PO Q12H December 03, 2023 12:00am Start: 07-08-2023 End: 07-18-2023 Amoxicillin-Pot Clavulanate 875-125 mg tablet Discontinued 1 {tbl} PO Q12H 20 July 08, 2023 12:00am July 17, 2023 12:00am July 18, 2023 12:25am Acute sinusitis, unspecified Start: 07-08-2023 End: 07-18-2023 take 1 tablet by mouth every twelve hours Amoxicillin-Pot Clavulanate Discontinued 1 TABLET PO Q12H 20 July 07, 2023 11:00pm July 17, 2023 11:25pm Start: 12-30-2022 End: 01-09-2023 Amoxicillin-Pot Clavulanate 875-125 mg tablet Discontinued 1 {tbl} PO Q12H December 30, 2022 12:00am January 08, 2023 12:00am January 09, 2023 12:05am Acute sinusitis, unspecified Start: 12-30-2022 End: 01-09-2023 take 1 tablet by mouth every twelve hours Amoxicillin-Pot Clavulanate Discontinued 1 TABLET PO Q12H 20 December 29, 2022 11:00pm January 08, 2023 11:05pm Start: 06-13-2022 End: 12-30-2022 Amoxicillin-Pot Clavulanate 875-125 mg tablet Discontinued 1 {tbl} PO TWICE A DAY June 13, 2022 12:00am December 30, 2022 2:28pm Start: 06-13-2022 End: 12-30-2022 take 1 tablet by mouth twice daily Amoxicillin-Pot Clavulanate Discontinued 1 TABLET PO TWICE A DAY June 12, 2022 11:00pm December 30, 2022 1:28pm Start: 05-17-2021 End: 05-27-2021 Amoxicillin-Pot Clavulanate (Augmentin) 875-125 mg tablet Discontinued 1 {tbl} PO Q12H 20 10 0 May 17, 2021 12:00am May 26, 2021 12:00am May 27, 2021 12:01am Acute sinusitis, unspecified Start: 01-18-2019 End: 01-28-2019 Amoxicillin-Pot Clavulanate (Augmentin) 875-125 mg tablet Discontinued 1 {tbl} PO TWICE A DAY 20 0 January 18, 2019 12:00am January 28, 2019 10:55am Start: 07-14-2018 End: 09-14-2018 Amoxicillin-Pot Clavulanate (Augmentin) 875-125 mg tablet Discontinued 1 {tbl} PO TWICE A DAY 14 0 July 14, 2018 12:00am September 14, 2018 5:04pm apremilast 30 mg oral tablet (17 sources) Start: 06-13-2022 End: 06-17-2023 take 1 tablet by mouth twice daily Apremilast (Otezla) 30 mg tablet Discontinued 30 mg PO TWICE A DAY June 13, 2022 12:00am June 17, 2023 3:43pm Start: 02-21-2021 End: 06-12-2021 take 1 tablet by mouth once daily Apremilast (Otezla) 30 mg tablet Discontinued 30 mg PO DAILY February 21, 2021 12:00am June 12, 2021 2:08pm azithromycin 250 mg oral tablet (9 sources) Macrolide Antimicrobial Start: 01-06-2019 End: 01-18-2019 take 2-5 tablets by mouth once daily Azithromycin (Zithromax Z-Osbaldo) 250 mg tablet Discontinued 0 PO .COMPLEX 6 0 January 06, 2019 12:00am January 18, 2019 1:13pm take 500 mg today (day 1), then 250 mg for 4 days (days 2-5) PO benzonatate 200 mg oral capsule (10 sources) Non-narcotic Antitussive Start: 10-04-2024 End: 02-01-2025 take 1 capsule by mouth three times daily as needed for cough Benzonatate 200 mg capsule Discontinued 200 mg PO THREE TIMES A DAY as needed for cough 20 0 October 04, 2024 1:00am February 01, 2025 10:48am Start: 01-06-2019 End: 01-18-2019 take 1 capsule by mouth three times daily as needed for cough Benzonatate 200 mg capsule Discontinued 200 mg PO THREE TIMES A DAY as needed for cough 21 0 January 06, 2019 12:00am January 18, 2019 1:13pm Acute sinusitis, unspecified Blood Pressure Monitor (Bloo d Pressure Kit) kit (9 sources) Start: 10-03-2021 End: 02-01-2025 Blood Pressure Monitor (Bloo d Pressure Kit) kit Discontinued 0 .ROUTE .MEDSUPPLY 1 0 October 03, 2021 1:00am February 01, 2025 10:47am Essential hypertension Essential (primary) hypertension blood pressure Check blood pressure daily Start: 10-03-2021 Blood Pressure Monitor (Blood Pressure Kit) kit Active 0 .ROUTE .MEDSUPPLY October 03, 2021 12:00am Check blood pressure daily Start: 10-03-2021 Blood Pressure Monitor (Blood Pressure Kit) kit Active 0 .ROUTE .MEDSUPPLY October 03, 2021 1:00am Check blood pressure daily cephalexin 500 mg oral capsule (8 sources) Cephalosporin Antibacterial Start: 05-05-2022 End: 05-15-2022 take 1 capsule by mouth every twelve hours Cephalexin 500 mg capsule Discontinued 500 mg PO Q12H 20 10 0 May 05, 2022 12:00am May 14, 2022 12:00am May 15, 2022 12:03am cyclobenzaprine hydrochloride 10 mg oral tablet (20 sources) Muscle Relaxant Start: 03-11-2019 End: 02-21-2021 take 1 tablet by mouth three times daily as needed for muscle spasms Cyclobenzaprine 10 mg tablet Discontinued 10 mg PO THREE TIMES A DAY as needed for muscle spasm 90 2 March 11, 2019 9:16am February 21, 2021 2:35pm Start: 03-11-2019 End: 03-11-2019 take 1 tablet by mouth three times daily as needed Cyclobenzaprine 5 mg tablet Discontinued 5 mg PO THREE TIMES A DAY as needed March 11, 2019 12:00am March 11, 2019 9:16am Start: 05-20-2018 End: 07-14-2018 take 1 tablet by mouth three times daily as needed for muscle spasms Cyclobenzaprine 5 mg tablet Discontinued 5 mg PO THREE TIMES A DAY as needed for muscle spasm 90 0 May 20, 2018 11:19am July 14, 2018 3:22pm diclofenac sodium 0.01 mg/mg topical gel (20 sources) Nonsteroidal Anti-inflammatory Drug Start: 09-24-2020 End: 02-21-2021 apply 2 g topically every six hours Diclofenac Sodium (Voltaren) 1 % gel Discontinued 2 g TOPICAL EVERY 6 HOURS 100 0 January 09, 2021 8:14am February 21, 2021 2:35pm apply to left shoulder doxycycline hyclate 100 mg oral tablet (18 sources) Tetracycline-class Drug Start: 05-03-2021 End: 06-12-2021 take 1 tablet by mouth twice daily Doxycycline Hyclate 100 mg tablet Discontinued 100 mg PO TWICE A DAY 20 May 03, 2021 2:57pm June 12, 2021 2:09pm Start: 11-26-2020 End: 02-21-2021 take 1 tablet by mouth twice daily Doxycycline Hyclate 100 mg tablet Discontinued 100 mg PO TWICE A DAY 20 0 November 26, 2020 1:00am February 21, 2021 2:35pm fluconazole 200 mg oral tablet (20 sources) Azole Antifungal Start: 09-22-2023 End: 12-03-2023 take 1 tablet by mouth once daily Fluconazole 200 mg tablet Discontinued 200 mg PO DAILY 1 September 22, 2023 1:00am December 03, 2023 5:39pm take 24 hours after completing antibiotic should symptoms develop as discussed in office Start: 07-08-2023 End: 12-03-2023 Fluconazole 150 mg tablet Di scontinued 150 mg PO Every 3 Days 2 July 08, 2023 12:00am December 03, 2023 5:39pm may repeat second dose 72 hrs after first dose if symptoms persist Start: 06-17-2022 End: 06-17-2023 Fluconazole 150 mg tablet Di scontinued 150 mg PO Every 3 Days 2 June 17, 2022 12:00am June 17, 2023 3:44pm may repeat second dose 72 hrs after first dose if symptoms persist Start: 01-18-2019 End: 01-19-2019 Fluconazole (Diflucan) 150 m g tablet Discontinued 150 mg PO Every 3 Days 2 0 0 January 18, 2019 12:00am January 18, 2019 12:00am January 19, 2019 12:08am may repeat second dose 72 hrs after first dose if symptoms persist Start: 07-14-2018 End: 07-15-2018 Fluconazole (Diflucan) 150 m g tablet Discontinued 150 mg PO Every 3 Days 7 0 1 July 14, 2018 12:00am July 14, 2018 12:00am July 15, 2018 12:08am may repeat second dose 72 hrs after first dose if symptoms persist fluticasone propionate 0.05 mg/actuat metered dose nasal spray (9 sources) Corticosteroid Start: 09-14-2018 End: 01-06-2019 take 50 ug nasal route once daily Fluticasone Propionate (Flonase Allergy Relief) 50 mcg/actuation spray,suspension Discontinued 2 NMA INTRANASAL DAILY 15.8 1 September 14, 2018 1:00am January 06, 2019 10:36am administer into each nostril Start: 09-14-2018 End: 01-06-2019 take 1 spray(s) nasal route once daily Fluticasone Propionate (Flonase Allergy Relief) 50 mcg/actuation spray,suspension Discontinued 2 SPRAY INTRANASAL DAILY 15.8 September 14, 2018 12:00am January 06, 2019 9:36am administer into each nostril ibuprofen 200 mg oral tablet (9 sources) Nonsteroidal Anti-inflammatory Drug Start: 07-01-2019 End: 12-28-2019 take 2 tablets by mouth every six hours as needed for pain Ibuprofen 200 MG tablet Discontinued 400 mg PO EVERY 6 HOURS NEEDED as needed for Mod-Severe Pain (4-10/10) 0 July 01, 2019 12:00am December 28, 2019 3:56pm Start: 07-01-2019 End: 12-28-2019 take 400 mg by mouth every six hours as needed Ibuprofen Discontinued 400 MG PO EVERY 6 HOURS NEEDED June 30, 2019 11:00pm December 28, 2019 2:56pm levoFLOXacin 500 mg oral tablet (1 source) Quinolone Antimicrobial Start: 01-06-2024 End: 02-23-2024 take 1 tablet by mouth once daily Levofloxacin 500 mg tablet Discontinued 500 mg PO DAILY 10 0 January 06, 2024 12:00am February 23, 2024 3:46pm linaclotide 0.072 mg oral capsule (20 sources) Guanylate Cyclase-C Agonist Start: 05-03-2021 End: 02-01-2025 take 1 capsule by mouth once daily Linaclotide (Linzess) 72 mcg capsule Discontinued 72 ug PO DAILY 90 2 February 23, 2024 4:01pm February 01, 2025 10:47am Irritable bowel syndrome with constipation Irritable bowel syndrome with constipation Start: 03-11-2019 End: 02-21-2021 take 1 capsule by mouth once daily as needed Linaclotide 72 mcg capsule Discontinued 72 ug PO DAILY as needed for Irritable Bowel Syndrome 90 September 17, 2019 12:26pm February 21, 2021 2:35pm meloxicam 15 mg oral tablet (20 sources) Nonsteroidal Anti-inflammatory Drug Start: 07-27-2024 End: 02-01-2025 take 1 tablet by mouth once daily Meloxicam 15 mg tablet Discontinued 15 mg PO daily 30 July 27, 2024 12:00am February 01, 2025 10:48am Start: 07-23-2020 End: 02-21-2021 take 1 tablet by mouth once daily Meloxicam 15 mg tablet Discontinued 15 mg PO DAILY 30 August 28, 2020 12:49pm February 21, 2021 2:35pm stop all other nsaids Start: 12-28-2019 End: 05-31-2020 take 1 tablet by mouth once daily as needed for pain Meloxicam (Mobic) 7.5 mg tablet Discontinued 7.5 mg PO DAILY as needed for pain 30 February 21, 2020 9:29am May 31, 2020 1:40pm Start: 06-21-2019 End: 12-28-2019 take 1 tablet by mouth once daily Meloxicam 15 mg tablet Discontinued 15 mg PO DAILY 30 June 21, 2019 12:00am December 28, 2019 3:56pm methylPREDNISolone 4 mg oral tablet (1 source) Corticosteroid Start: 10-04-2024 End: 02-01-2025 take 1 tablet by mouth once Methylprednisolone (Medrol (Osbaldo)) 4 mg tablets,dose pack Discontinued 0 PO per package directions 21 October 04, 2024 1:00am February 01, 2025 10:48am PO PER PKG DIR potassium chloride 10 meq extended release oral capsule (14 sources) Start: 06-30-2023 End: 12-03-2023 take 1 capsule by mouth once daily Potassium Chloride 10 mEq capsule, extended release Discontinued 10 meq PO DAILY 90 1 June 30, 2023 12:00am December 03, 2023 5:39pm Start: 10-04-2021 End: 06-13-2022 take 1 tablet by mouth once daily Potassium Chloride 20 mEq tablet extended release Discontinued 20 meq PO DAILY 30 3 October 04, 2021 1:00am June 13, 2022 3:07pm predniSONE 20 mg oral tablet (20 sources) Start: 05-03-2021 End: 06-12-2021 take 2 tablets by mouth once daily Prednisone 20 mg tablet Discontinued 40 mg PO DAILY 10 May 03, 2021 2:57pm June 12, 2021 2:09pm Start: 05-03-2021 End: 06-12-2021 take 40 mg by mouth once daily Prednisone Discontinued 40 MG PO DAILY May 03, 2021 1:57pm June 12, 2021 1:09pm Start: 11-26-2020 End: 02-21-2021 take 2 tablets by mouth once daily Prednisone 20 mg tablet Discontinued 40 mg PO DAILY 10 November 26, 2020 1:00am February 21, 2021 2:36pm Start: 11-26-2020 End: 02-21-2021 take 40 mg by mouth once daily Prednisone Discontinued 40 MG PO DAILY November 26, 2020 12:00am February 21, 2021 1:36pm Start: 12-28-2019 End: 05-31-2020 Prednisone 10 mg tablet Discontinued 0 PO daily 30 0 March 20, 2020 2:12pm May 31, 2020 1:40pm 4 tabs for 3 days, then 3 tabs for 3 days, then 2 tabs for 3 days, then 1 tab for 3 days PO QDAY; administer with food or milk Start: 04-15-2019 End: 05-11-2019 take 3 tablets by mouth once daily at mealtime Prednisone 20 mg tablet Discontinued 60 mg PO daily 15 April 15, 2019 12:00am May 11, 2019 4:14pm administer with food or milk Start: 04-15-2019 End: 05-11-2019 take 60 mg by mouth once daily at mealtime Prednisone Discontinued 60 MG PO daily April 14, 2019 11:00pm May 11, 2019 3:14pm administer with food or milk terbinafine hydrochloride 10 mg/ml topical cream (9 sources) Allylamine Antifungal Start: 07-14-2018 End: 09-14-2018 Terbinafine Hcl (Lamisil At) 1 % cream Discontinued 1 NMA TOPICAL TWICE A DAY 15 2 July 14, 2018 12:00am September 14, 2018 5:04pm traMADol hydrochloride 50 mg oral tablet (18 sources) Opioid Agonist Start: 06-12-2021 End: 06-13-2022 take 1 tablet by mouth twice daily as needed Tramadol 50 mg tablet Discontinued 50 mg PO TWICE A DAY as needed June 12, 2021 12:00am June 13, 2022 3:08pm Start: 08-28-2020 End: 02-21-2021 take 1 tablet by mouth three times daily as needed for pain Tramadol 50 mg tablet Discontinued 50 mg PO THREE TIMES A DAY as needed for pain 60 0 August 28, 2020 1:00am February 21, 2021 2:36pm stop cyclobenzaprine and all other narcotics Problems Active Problems Problem Classification Problem Date Documented Da te Episodic/Chronic Cardiac dysrhythmias (12 sources) Tachycardia; Translations: [Tachycardia, unspecified] 10-16-2021 Episodic Conduction disorders (9 sources) Right bundle branch block AND left anterior fascicular block; Translations: [Bifascicular block] 07-01-2019 Chronic Essential hypertension (13 sources) Essential hypertension; Translations: [Essential (primary) hypertension] 05-11-2019 Chronic Fluid and electrolyte disorders (6 sources) Hypokalemia; Translations: [Hypokalemia] 06-18-2023 Episodic Menopausal disorders (1 source) Atrophic vaginitis; Translations: [Postmenopausal atrophic vaginitis] 05-02-2025 Chronic Other and ill-defined heart disease (9 sources) Diastolic dysfunction; Translations: [Other ill-defined heart diseases] 06-06-2019 Chronic Other connective tissue disease (1 source) Impingement syndrome of shoulder region; Translations: [Impingement syndrome of left shoulder] 02-26-2024 Episodic Other female genital disorders (5 sources) Female genital organ symptoms; Translations: [Unspecified condition associated with female genital organs and menstrual cycle] 06-17-2023 Episodic Other gastrointestinal disorders (9 sources) Irritable bowel syndrome characterized by constipation; Translations: [Irritable bowel syndrome with constipation] 06-12-2021 Chronic Other inflammatory condition of skin (9 sources) Psoriasis; Translations: [Psoriasis, unspecified] 06-12-2021 Chronic Other lower respiratory disease (9 sources) Cough; Translations: [Cough] 06-01-2019 Episodic Other non-traumatic joint disorders (9 sources) Rotator cuff arthropathy of left shoulder; Translations: [Other specific arthropathies, not elsewhere classified, left shoulder] 03-20-2020 Chronic Other screening for suspected conditions (not mental disorders or infectious disease) (8 sources) Mammography abnormal; Translations: [Other abnormal and inconclusive findings on diagnostic imaging of breast] Onset: 10-28-2024 09-28-2023 Episodic Other skin disorders (9 sources) Mass of subcutaneous tissue; Translations: [Localized swelling, mass and lump, unspecified] 02-21-2021 Episodic Other upper respiratory disease (9 sources) Deviated nasal septum; Translations: [Deviated nasal septum] 07-01-2019 Episodic Other upper respiratory infections (12 sources) Sinusitis; Translations: [Chronic sinusitis, unspecified] 05-03-2021 Chronic Other upper respiratory infections (20 sources) Acute maxillary sinusitis; Translations: [Acute maxillary sinusitis, unspecified] Episodic Otitis media and related conditions (7 sources) Acute left otitis media; Translations: [Otitis media, unspecified, left ear] 05-05-2022 Episodic Residual codes; unclassified (9 sources) Obstructive sleep apnea syndrome; Translations: [Obstructive sleep apnea (adult) (pediatric)] 06-01-2019 Chronic Spondylosis; intervertebral disc disorders; other back problems (1 source) Sacroiliac disorder; Translations: [Sacrococcygeal disorders, not elsewhere classified] 07-27-2024 Episodic Past or Other Problems Problem Classification Problem Date Documented Da te Episodic/Chronic Fever of unknown origin (1 source) Fever, unspecified; Translations: [Fever, unspecified] Onset: 10-04-2024 Episodic Results Test Name Value Interpretation Reference Range Facility Urgent Care Visit Reporton 0 11-01-2024 Urgent Care Visit Report [facility] [address], [address] [place] [id number] OFFICE VISIT Date of Service: 11/01/24 MR#: [id number] Acct: [id number] Name: OPAL MAI Rep #: [id number] : 1965 Provider: LANI Reinoso Age/Sex: 58/F Location: [facility] [place] Status: Signed Intake Vital Signs 07/27/24 08:03 11/01/24 15:54 Height 5 ft 5 in 5 ft 5 in Weight: 228 lb 224 lb 4 oz BMI 37.9 37.3 BP 130/60 H 124/86 H Blood Pressure Location Lt brachial Position Sitting Sitting Respiration 16 Pulse 78 98 Pulse Source Monitor Temp 97.4 F L 98.1 F Temp Source Temporal Oral Pulse Oximetry (%) 97 98 Oxygen Delivery Method room air room air Intake Visit Reasons: Sinus infection Accompanied by: Self Allergies No Known Allergies Allergy (Verified 11/01/24 15:54) Medications ???Medication ???Instructions ???Recorded ???Confirmed ???Type acetaminophen 325 mg tablet 500 mg (1.5385 x 325 mg) PO Q4H 07/01/19 11/01/24 Rx PRN PRN Mild-Moderate Pain (1-5/10) blood pressure monitor (Blood #1 ea 10/03/21 11/01/24 Rx Pressure Kit) linaclotide 72 mcg capsule 72 mcg PO DAILY #90 caps 02/23/24 11/01/24 Rx (Linzess) lisinopril 20 1 tab PO QDAY HTN #90 tabs 07/04/24 11/01/24 Rx mg-hydrochlorothiazide 25 mg tablet amoxicillin 875 mg tablet 875 mg PO Q12H #20 tabs 07/27/24 11/01/24 Rx meloxicam 15 mg tablet 15 mg PO QDAY #30 tabs 07/27/24 11/01/24 Rx albuterol sulfate 0.63 mg/3 mL 0.63 mg (3 mL) inhalation Q4H PRN 08/30/24 11/01/24 Rx solution for nebulization wheezing #90 mL benzonatate 200 mg capsule 200 mg PO TID PRN cough #20 caps 10/04/24 11/01/24 Rx methylprednisolone 4 mg tablets in See Rx Instructions PO PER PKG DIR 10/04/24 11/01/24 Rx a dose pack (Medrol (Osbaldo)) #21 tabs albuterol sulfate 90 mcg/actuation 2 puff inhalation Q6H PRN 10/07/24 11/01/24 Rx aerosol inhaler shortness of breath or wheezing #8.5 grams amoxicillin 875 mg-potassium 1 tab PO BID #20 tabs 11/01/24 11/01/24 Rx clavulanate 125 mg tablet Nurse's Note: Patient is here for a sinus infection. Patient states she has pressure and her checks are red and hot and that what happens with one. [facility] Medical History URI (upper respiratory infection) Diastolic dysfunction Right bundle branch block (RBBB) with left anterior fascicular block Essential (primary) hypertension Deviated nasal septum Acute maxillary sinusitis Acute ethmoidal sinusitis Chronic constipation Musculoskeletal back pain Low back pain Asthma FERNANDA (obstructive sleep apnea) Sinusitis Tinea corporis IBS (irritable bowel syndrome) Acute hemorrhoid Hypokalemia Obesity Surgical History History of shoulder surgery History of colposcopy History of D C History of hysterectomy History of orthopedic surgery Family History Father Myocardial infarction Other Cancer Hypertension Thyroid disorder Social History Smoking Status: Former smoker how long ago did patient quit smokin, 10/22ppd second hand exposure: Yes alcohol intake: never substance use type: does not use what type of physical activity do you participate in: none HPI HPI Details: OPAL MAI, is a 58 F who presents to the office today for [facility] evaluation [facility] for approximately 2-week history of progressively worsening facial pressure/congestion with purulent postnasal drip/cough and bilateral ear pressure - noting symptoms improved after last treated w/ URI c/o here 1 mo ago though never fully resolved and have only worsed since. No complaints of fever, chills, myalgias, fatigue, runny nose, or nausea/vomiting/diarrhea. No complaints of chest pain/shortness of breath/dyspnea on exertion. Nonsmoker. No close contacts with similar complaints. No other associated symptoms and no other alleviating/aggravating factors. ROS Const Constitutional: No other (as above) Exam Const General: cooperative, healthy appearing and no acute distress Orientation: alert, awake and oriented x3 HENMT Head: normal to inspection Ears: hearing grossly normal bilaterally, external ears normal, TM's normal bilaterally and EAC's normal Nose: external nose normal, nares normal, septum normal and no nasal discharge Face and sinus: normal facial exam, sinuses nontender (Though bilateral maxillary fullness to palpation) and face symmetric Mouth: oral mucosae normal, lip normal, tongue normal and oropharynx normal Throat: posterior oropharynx normal, tonsils normal, uvula midline and postnasal drainage (scant amount purulent) Eyes General: appearance normal (more content not included)... Normal [facility] Urgent Care Visit Reporton 1 12-05-2023 Urgent Care Visit Report [facility] [address] [place] [address] OFFICE VISIT Date of Service: 10/04/24 MR#: [id number] Acct: [id number] Name: OPAL MAI ANN Rep #: [id number] : 1965 Provider: LANI Reinoso Age/Sex: 58/F Location: [facility] [place] [facility] Status: Signed Intake Vital Signs 07/27/24 08:03 10/04/24 16:40 Height 5 ft 5 in Weight: 228 lb BMI 37.9 BP 130/60 H 120/70 Blood Pressure Location Lt brachial Rt brachial Position Sitting Sitting Respiration 16 12 Pulse 78 82 Pulse Source Monitor NIBP Temp 97.4 F L 100.7 F H Temp Source Temporal Oral Pulse Oximetry (%) 97 98 Oxygen Delivery Method room air room air Intake Visit Reasons: FEVER, NOT FEELING WELL Chief Complaint: fever, headache, body aches Newspaper Deliverer Required: No Is patient in pain?: No Allergies No Known Allergies Allergy (Verified 10/04/24 16:41) Medications ???Medication ???Instructions ???Recorded ???Confirmed ???Type acetaminophen 325 mg tablet 500 mg (1.5385 x 325 mg) PO Q4H 07/01/19 10/04/24 Rx PRN PRN Mild-Moderate Pain (1-5/10) blood pressure monitor (Blood #1 ea 10/03/21 10/04/24 Rx Pressure Kit) linaclotide 72 mcg capsule 72 mcg PO DAILY #90 caps 02/23/24 10/04/24 Rx (Linzess) albuterol sulfate 90 mcg/actuation 2 puff inhalation Q6H PRN 07/04/24 10/04/24 Rx aerosol inhaler shortness of breath or wheezing #8.5 grams lisinopril 20 1 tab PO QDAY HTN #90 tabs 07/04/24 10/04/24 Rx mg-hydrochlorothiazide 25 mg tablet amoxicillin 875 mg tablet 875 mg PO Q12H #20 tabs 07/27/24 10/04/24 Rx meloxicam 15 mg tablet 15 mg PO QDAY #30 tabs 07/27/24 10/04/24 Rx albuterol sulfate 0.63 mg/3 mL 0.63 mg (3 mL) inhalation Q4H PRN 08/30/24 10/04/24 Rx solution for nebulization wheezing #90 mL benzonatate 200 mg capsule 200 mg PO TID PRN cough #20 caps 10/04/24 10/04/24 Rx methylprednisolone 4 mg tablets in See Rx Instructions PO PER PKG DIR 10/04/24 10/04/24 Rx a dose pack (Medrol (Osbaldo)) #21 tabs Is last menstrual period known: No Post menopausal: No Patient : No Have you fallen in the past year?: No Nurse's Note: patient here for fever, headache, body ache x3 days. Ran juan pablo covid/flu test. [facility] Medical History URI (upper respiratory infection) Diastolic dysfunction Right bundle branch block (RBBB) with left anterior fascicular block Essential (primary) hypertension Deviated nasal septum Acute maxillary sinusitis Acute ethmoidal sinusitis Chronic constipation Musculoskeletal back pain Low back pain Asthma FERNANDA (obstructive sleep apnea) Sinusitis Tinea corporis IBS (irritable bowel syndrome) Acute hemorrhoid Hypokalemia Obesity Surgical History History of shoulder surgery History of colposcopy History of D C History of hysterectomy History of orthopedic surgery Family History Father Myocardial infarction Other Cancer Hypertension Thyroid disorder Social History Smoking Status: Former smoker how long ago did patient quit smokin, 10/22pp second hand exposure: Yes alcohol intake: never substance use type: does not use what type of physical activity do you participate in: none HPI HPI Chief Complaint: fever, headache, body aches Details: OPAL MAI, is a 58 F who presents to the office today for fever, headache, body ache x3 days. Patient notes no complaints of chest pain or shortness of breath or dyspnea on exertion. Several close contacts recently dx???d w/ similar URI complaints. No [id number] taken to assist. Patient is requesting POC screening for COVID-19 and influenza. Non-smoker. No other associated symptoms and no other alleviating/aggravating factors. ROS Const Constitutional: No other (As above) Exam Const General: cooperative, healthy appearing and no acute distress Orientation: alert, awake and oriented x3 HENMT Head: normal to inspection Ears: hearing grossly normal bilaterally, external ears normal, TM's normal bilaterally and EAC's normal Nose: external nose normal, nares normal, septum normal and clear nasal discharge Face and sinus: normal facial exam, sinuses nontender and face symmetric Mouth: oral mucosae normal, lip normal, tongue normal and oropharynx normal Throat: posterior oropharynx normal, tonsils normal, uvula midline and no postnasal drainage Eyes General: appearance normal, both eyes and all related structures Neck Neck: normal visual inspection, full ROM, no lymphadenopathy, no meningeal signs and supple Neck mass: No Thyroid: thyroid normal Lymphatic: no lymphadenopathy not (more content not included)... Normal [facility] SCRN MAMM (CAD)W/IVORY BILATo n 09-27-2024 SCRN MAMM (CAD)W/IVORY BILAT [facility] Imaging Services [address] [place] [address] SCRN MAMM (CAD)W/IVORY BILAT MR#: [id number] Acct: [id number] Name: OPAL MAI ANN Rep #: [id number] : 1965 F 58 From: John matthews MD PCP: Dr. Kai Gonzalez, DO Status: REG CLI Study: SCRN MAMM (CAD)W/IVORY BILAT Date of Exam: 09/18 Exam# [id number] Ordering Dr: Anjali Torres MENTAL HEALTH CONSULTANT-C [id number] MAMMOGRAPHY - BILATERAL SCREENING REASON FOR EXAM: Female, 58 years old. Routine annual screening examination. PERTINENT HISTORY: Non-contributory. TECHNIQUE: Digital bilateral breast ivory (3D mammographic acquisition) in the CC and MLO projections. 2-D mediolateral oblique (MLO) and craniocaudad (CC) views of both breasts were obtained. CAD: Full Field Digital Mammography with Computer Added Detection was performed. COMPARISON: Comparison is made with prior study dated September 25, 2023 and September 24, 2022. ____ FINDINGS: Breast Composition: There are scattered areas of fibroglandular density. There are no dominant masses or suspicious calcifications. The previously seen 3.8 mm well-defined nodule in the upper central portion of the right breast is not seen at this No other significant abnormalities are identified. There has been no significant change since the prior study. ____ BI/SCRN MAMM (CAD)W/IVORY BILAT IMPRESSION: Stable bilateral screening mammogram. Yearly follow-up mammogram recommended. (A) ____ ASSESSMENT CATEGORY: BIRADS Category 2: Benign. A letter regarding these results will be sent to the patient by the facility within 30 days. Approximately 10% of breast cancers are not detected by mammography. A normal mammogram should not delay biopsy of a clinically suspicious abnormality. [id number] Electronically Signed: John Bennett MD at 8:00 EST , CC: AUBREY Torres; Dr. Kai Gonzalez DO Machine Filler Shredder: Signed Normal [facility] Internal Medicine Office Vis itolashonda 07-27-2024 Internal Medicine Office Visit [facility] [address] [place] [place] [address] OFFICE VISIT Date of Service: 07/27/24 MR#: [id number] Acct: [id number] Name: OPAL MAI Rep #: [id number] : 1965 Provider: LANI Hector Age/Sex: 58/F Location: [facility] Status: Signed Intake Vital Signs 02/25/24 15:54 07/27/24 08:03 Height 5 ft 5 in 5 ft 5 in Weight: 225 lb 228 lb BMI 37.4 37.9 BP 122/82 H 130/60 H Blood Pressure Location Lt brachial Lt brachial Position Sitting Sitting Respiration 16 16 Pulse 80 78 Pulse Source Monitor Monitor Temp 97.5 F L 97.4 F L Temp Source Temporal Temporal Pulse Oximetry (%) 95 97 Oxygen Delivery Method room air room air Intake Visit Reasons: HIP INJECTION Chief Complaint: hip injection Newspaper Deliverer Required: No Accompanied by: Self Is patient in pain?: Yes (left hip ) Pain scale (1-10): 3 Allergies No Known Allergies Allergy (Verified 07/27/24 08:00) Medications ???Medication ???Instructions ???Recorded ???Confirmed ???Type acetaminophen 325 mg tablet 500 mg (1.5385 x 325 mg) PO Q4H 07/01/19 07/27/24 Rx PRN PRN Mild-Moderate Pain (1-5/10) blood pressure monitor (Blood #1 ea 10/03/21 07/27/24 Rx Pressure Kit) albuterol sulfate 0.63 mg/3 mL 0.63 mg (3 mL) inhalation Q4H PRN 06/17/23 07/27/24 Rx solution for nebulization wheezing #90 mL linaclotide 72 mcg capsule 72 mcg PO DAILY #90 caps 02/23/24 07/27/24 Rx (Linzess) albuterol sulfate 90 mcg/actuation 2 puff inhalation Q6H PRN 07/04/24 07/27/24 Rx aerosol inhaler shortness of breath or wheezing #8.5 grams lisinopril 20 1 tab PO QDAY HTN #90 tabs 07/04/24 07/27/24 Rx mg-hydrochlorothiazide 25 mg tablet amoxicillin 875 mg tablet 875 mg PO Q12H #20 tabs 07/27/24 07/27/24 Rx meloxicam 15 mg tablet 15 mg PO QDAY #30 tabs 07/27/24 07/27/24 Rx PFSH Medical History URI (upper respiratory infection) Diastolic dysfunction Right bundle branch block (RBBB) with left anterior fascicular block Essential (primary) hypertension Deviated nasal septum Acute maxillary sinusitis Acute ethmoidal sinusitis Chronic constipation Musculoskeletal back pain Low back pain Asthma FERNANDA (obstructive sleep apnea) Sinusitis Tinea corporis IBS (irritable bowel syndrome) Acute hemorrhoid Hypokalemia Obesity Surgical History History of shoulder surgery History of colposcopy History of D C History of hysterectomy History of orthopedic surgery Family History Father Myocardial infarction Other Cancer Hypertension Thyroid disorder Social History Smoking Status: Former smoker how long ago did patient quit smokin, 10/22pp second hand exposure: Yes alcohol intake: never substance use type: does not use what type of physical activity do you participate in: none HPI HPI Chief Complaint: hip injection Details: OPAL MAI, is a 58 F who presents to the office today for left lower back / hip pains. Patient states that she has had pains off an on for years. She states that she remembers it starting after a long day of traveling (flying and then driving). She has not had any injuries or acute inciting incident that started her pains. 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 She noticed the pains shortly after this. She has been taking some Ibuprofen and she has been also going to the chiropractor and using ice on the area. She states that she has not seen a lot of relief from the chiropractic treatments. She does use TENS / stim which she states does help Patient has also been having sinus issues for the past few weeks now. She states that she was congested and getting stuff out at the same time now it just seems clogged up with nothing coming out. She has a long history of having allergies still getting weekly allergy injections. This is typically a time where those allergies are flared up and she knows that but at this point things are no longer draining and now she is starting to get pressure and discomfort all the sinuses. Patient does have a history of having recurrent sinusitis secondary to her seasonal allergies. ROS Const Constitutional: No body ache, chills, excessive sweating, fatigue, fever(s), frequent falls, headache(s), snoring, weakness or change in appetite Eyes Eyes: No blurry vision, change in vision, eye pain or Light sensitivity ENT ENT: No abnormal hearing, ear or mastoid pain, tinnitus, nasal congestion, headache(s), neck pain or sore throat Resp Respiratory: No cough, shortness of breath, snoring or (more content not included)... Normal [facility] Basophil percentageOrdered B y: Kai Gonzalez on 12-04-2023 Chloride [Moles/Vol] 105 mmol/L 98-107 [facility] Glucose [Mass/Vol] 97 mg/dL 74-106 [facility] Potassium [Moles/Vol] 4.1 mmol/L 3.5-5.1 [facility] Comment on above: Moderate Hemolysis, Result may be falsely increased. Sodium [Moles/Vol] 140 mmol/L 136-145 [facility] Laboratory - Chemistry and C hemistry - challengeOrdered By: Kai Gonzalez on 12-04-2023 CO2 [Moles/Vol] 29.0 mmol/L 21.0-32.0 [facility] Urea nitrogen/Creatinine [Mass ratio] 22.4 mg/mg 10-20 [facility] No Panel InformationOrdered By: Kai Gonzalez on 12-04-2023 Estimated GFR (MDRD) Amer 89 mL/min >60 [facility] Comment on above: GFR Calc Estimated GFR (MDRD) Non-Af Amer 74 mL/min >60 [facility] Comment on above: Non- GFR Calc Serum or plasma calcium smauel urement (mass/volume)Ordered By: Kai Gonzalez on 12-04-2023 Calcium [Mass/Vol] 10.0 mg/dL 8.5-10.1 [facility] Serum or plasma creatinine m easurement (mass/volume)Ordered By: Kai Gonzalez on 12-04-2023 Creatinine [Mass/Vol] 0.85 mg/dL 0.55-1.02 [facility] Comment on above: The validity of the calculated GFR & GFRAA in patients over 70 years has not been determined. Clinical correlation is essential. Serum or plasma urea nitroge n measurement (mass/volume)Ordered By: Kai Gonzalez on 12-04-2023 Urea nitrogen [Mass/Vol] 19 mg/dL 7-18 [facility] Thin prep Papanicolaou smear with manual screeningOrdered By: Kaicallum Gonzalez on 12-04-2023 Thin prep Papanicolaou smear with manual screening 6 5-15 [facility] Laboratory - Microbiology an d Antimicrobial susceptibilityon 09-22-2023 SARS-CoV-2 (COVID-19) RNA CARL+probe Ql (Unsp spec) Not detected [facility] No Panel Informationon 09-22 Influenza Types A,B Rapid (Clinic) Not detected [facility] Absolute lymphocyte countOrd ered By: Kai Gonzalez on 06-17-2023 Lymphocytes Auto (Unsp spec) [#/Vol] 2.73 10*3/uL 0.83-4.51 [facility] Basophil percentageOrdered B y: Kai Gonzalez on 06-17-2023 Basophils/100 WBC (Bld) 0.5 % 0-1 [facility] Bilirubin [Mass/Vol] 0.30 mg/dL 0.20-1.00 [facility] Comment on above: For patients on eltr ombopag therapy, use of Dimension Breda TBIL is not recommended. Chloride [Moles/Vol] 100 mmol/L 98-107 [facility] Cholesterol [Mass/Vol] 235 mg/dL <200 [facility] Comment on above: <200 mg/dL Desirable 200-240 mg/dL Borderline >240 mg/dL High Risk Eosinophils/100 WBC (Bld) 1.8 % 0-5 [facility] Glucose [Mass/Vol] 103 mg/dL 74-106 [facility] Comment on above: Fasting Glucose resu lt from 100 to 125 mg/dL suggests IMPAIRED HOMEOSTASIS per A.D.A. criteria. Neutrophils (Bld) [#/Vol] 2.4 10*3/uL 2.0-7.7 [facility] Neutrophils/100 WBC (Bld) 42.2 % 47-70 [facility] Potassium [Moles/Vol] 3.2 mmol/L 3.5-5.1 [facility] Protein [Mass/Vol] 7.2 g/dL 6.4-8.2 [facility] Sodium [Moles/Vol] 136 mmol/L 136-145 [facility] Triglyceride [Mass/Vol] 215 mg/dL <199 [facility] Comment on above: The drugs N-Acetylcy steine and Metamizole may falsely depress this assay.Serum Triglycerides Reference Interval Normal <150 mg/dL Borderline high 150 - 199 mg/dL High 200 - 499 mg/dL Very High > or = 500 mg/dL WBC (Bld) [#/Vol] 5.7 10*3/uL 4.4-11.0 [facility] Blood erythrocytes count (nu mber/volume)Ordered By: Kai Gonzalez on 06-17-2023 RBC (Bld) [#/Vol] 4.60 10*6/uL 4.2-5.4 [facility] Blood hemoglobin measurement (mass/volume)Ordered By: Kai Gonzalez on 06-17-2023 Hemoglobin (Bld) [Mass/Vol] 14.0 g/dL 12.0-15.0 [facility] Blood lymphocytes/100 leukoc ytesOrdered By: Kai Gonzalez on 06-17-2023 Lymphocytes/100 WBC (Bld) 48.2 % 19-41 [facility] Blood monocytes/100 leukocyt esOrdered By: Kai Gonzalez on 06-17-2023 Monocytes/100 WBC (Bld) 6.9 % 0-10 [facility] Blood platelet mean volumeOr dered By: Kai Gonzalez on 06-17-2023 Platelet mean volume (Bld) [Entitic vol] 9.6 fL 6.2-12.0 [facility] Determination of erythrocyte mean corpuscular volume (MCV)Ordered By: Kai Gonzalez on 06-17-2023 MCV (RBC) [Entitic vol] 90.2 fL 81-99 [facility] Hematocrit Auto (Bld) [Volum e fraction]Ordered By: Kai Gonzalez on 06-17-2023 Hematocrit (Bld) [Volume fraction] 41.5 % 37-47 [facility] Laboratory - Chemistry and C hemistry - challengeOrdered By: Kai Gonzalez on 06-17-2023 ALP [Catalytic activity/Vol] 107 U/L 45-117 [facility] ALT [Catalytic activity/Vol] 32 U/L 13-56 [facility] CO2 [Moles/Vol] 28.0 mmol/L 21.0-32.0 [facility] Globulin (S) [Mass/Vol] 3.5 g/dL 2.2-4.2 [facility] Urea nitrogen/Creatinine [Mass ratio] 19.7 mg/mg 10-20 [facility] Laboratory - Hematology and Cell countsOrdered By: Kai Gonzalez on 06-17-2023 Erythrocyte distribution width (RBC) [Entitic vol] 41.7 fL 35.1-43.9 [facility] Erythrocyte distribution width (RBC) [Ratio] 12.6 % 11.6-14.6 [facility] Immature granulocytes/100 WBC (Bld) 0.400 % 0.0-0.9 [facility] Comment on above: IG% - Immature Granu locytes (promyelocytes, myelocytes and metamyelocytes) > 1% indicates that a LEFT SHIFT is Present. MCH (RBC) [Entitic mass] 30.4 pg 27.0-32.0 [facility] Nucleated RBC/100 WBC (Bld) [Ratio] 0 % 0-5 [facility] MCHC Auto (RBC) [Mass/Vol]Or dered By: Kai Gonzalez on 06-17-2023 MCHC (RBC) [Mass/Vol] 33.7 g/dL 32-36 [facility] No Panel InformationOrdered By: Kai Gonzalez on 06-17-2023 Estimated GFR (MDRD) Amer 93 mL/min >60 [facility] Comment on above: GFR Calc Estimated GFR (MDRD) Non-Af Amer 77 mL/min >60 [facility] Comment on above: Non- GFR Calc Thyroid Stimulating Hormone (TSH) 2.18 uIU/mL 0.358-3.74 [facility] Platelets bldOrdered By: Anita stratton Carlos on 06-17-2023 Platelets (Bld) [#/Vol] 226 10*3/uL 150-450 [facility] Serum or plasma albumin samuel urement (mass/volume)Ordered By: Kai Gonzalez on 06-17-2023 Albumin [Mass/Vol] 3.7 g/dL 3.2-5.0 [facility] Serum or plasma albumin/glob ulin mass ratioOrdered By: Kai Gonzalez on 06-17-2023 Albumin/Globulin [Mass ratio] 1.1 {ratio} 0.9-2.4 [facility] Serum or plasma calcium samuel urement (mass/volume)Ordered By: Kai Gonzalez on 06-17-2023 Calcium [Mass/Vol] 9.3 mg/dL 8.5-10.1 [facility] Serum or plasma cholesterol in HDL measurement (mass/volume)Ordered By: Kai Gonzalez on 06-17-2023 Cholesterol in HDL [Mass/Vol] 54 mg/dL >40 [facility] Comment on above: The drugs N-Acetylcy steine and Metamizole may falsely depress this assay. Reference Range HDL <40 mg/dL Low HDL Cholesterol HDL >or= 60 mg/dL High HDL Cholesterol Serum or plasma cholesterol in VLDL measurement (mass/volume)Ordered By: Kai Gonzalez on 06-17-2023 Cholesterol in VLDL [Mass/Vol] 43 mg/dL 5-40 [facility] Serum or plasma creatinine m easurement (mass/volume)Ordered By: Kai Gonzalez on 06-17-2023 Creatinine [Mass/Vol] 0.81 mg/dL 0.55-1.02 [facility] Comment on above: The validity of the calculated GFR & GFRAA in patients over 70 years has not been determined. Clinical correlation is essential. Serum or plasma low density lipoprotein (LDL) cholesterol measurement (mass/volume)Ordered By: Kai Gonzalez on 06-17-2023 Cholesterol in LDL [Mass/Vol] 138 mg/dL 0-130 [facility] Serum or plasma urea nitroge n measurement (mass/volume)Ordered By: Kai Gonzalez on 06-17-2023 Urea nitrogen [Mass/Vol] 16 mg/dL 7-18 [facility] Thin prep Papanicolaou smear with manual screeningOrdered By: Kai Gonzalez on 06-17-2023 Thin prep Papanicolaou smear with manual screening 23 U/L 15-37 [facility] Thin prep Papanicolaou smear with manual screening 8 5-15 [facility] Cervical or vagninal specime n microscopic examination by cytology stain (reported ason 09-10-2022 Cytology report Cyto stain Doc (Cvx/Vag) Comment . [facility] Work Phone: Comment on above: The Pap smear is a s creening test designed to aid in thedetection of premalignant and malignant conditions of theuterine cervix. It is not a diagnostic procedure andshould not be used as the sole means of detecting cervicalcancer. Both false-positive and false-negative reports dooccur. Detection in cervical specim en of any of human papilloma virus (HPV) 16, 18, 31, 33,on 09-10-2022 HPV 16+18+31+33+35+39+4 5+51+52+56+58+59+66 +68 DNA Probe+sig amp Ql (Cvx) Negative Negative [facility] Work Phone: Comment on above: This nucleic acid am plification test detects fourteen high- risk HPV types (16,18,31,33,35,39,45,51,52,56,58,59,66,68)without differentiation. Laboratory - Cytologyon 08-20 [employer] Derrick Operator Cyto stain Nom (Cvx/Vag) [ID] Comment . [facility] Work Phone: Comment on above: Rocio Parsons, Cyto technologist (ASCP) Laboratory - Miscellaneous t estson 09-10-2022 Service comment (Unsp spec) [Interp] Comment . [facility] Work Phone: Comment on above: This liquid based Th inPrep(R) pap test was screened withthe use of an image guided system. Service comment (Unsp spec) [Interp] . . [facility] Work Phone: Liquid-based cerv Pap + CT/G C by CARL w reflex to high-risk HPV for ASCUSon 09-10-2022 Cytology report Cyto stain.thin prep Doc (Cvx/Vag) Comment . [facility] Work Phone: Comment on above: Criteria not met, HP V Genotype not performed.Performed at: WB - [address] [id number] Director: Sulema Pastor MD, Phone: [phone] at: =G - [address], [place] [id number] Director: Sulema Pastor MD, Phone: [phone] No Panel Informationon 09-10 Miscellaneous Test See comment [facility] Work Phone: Comment on above: TEST RESULT LIMITSNu Swab Vaginitis Plus (VG+)Bacterial Vaginosis, CARL Atopobium vaginae Low - 0 Score BVAB 2 Low - 0 Score Megasphaera 1 Low - 0 Score Total Score, add three scores Calculate total score by adding the 3 individual bacterial vaginosis (BV) marker scores together. Total score is interpreted as follows: Total score 0-1: Indicates the absence of BV. Total score 2: Indeterminate for BV. Additional clinical data should be evaluated to establish a diagnosis. Total score 3-6: Indicates the presence of BV.This test was developed and its performance characteristicsdetermined by [facility]. It has not been cleared or approvedby the Food and Drug Administration.Elena albicans, CARL, Negative NegativeCandida glabrata, CARL, Negative NegativeTrich vag by CARL Negative NegativeChlamydia trachomatis, CARL Negative NegativeNeisseria gonorrhoeae, CARL Negative Negative TESTING PERFORMED AT [facility]. ORIGINAL REPORT ON FILE IN LAB CONTAINS ADDITIONAL TEST SITE INFORMATION. ___ Pathology report final diagnosis Narrative Comment . [facility] Work Phone: Comment on above: NEGATIVE FOR INTRAEP ITHELIAL LESION OR MALIGNANCY. ORon 09-11-2021 [facility] DATE OF SERVICE: PREOPERATIVE DIAGNOSES: 1. Adhesive capsulitis. 2. Impingement syndrome of the left shoulder. POSTOPERATIVE DIAGNOSES: 1. Type 2 superior labrum anterior posterior tear with 50% fraying and tearing of the biceps tendon. 2. Complete rupture of the subscapularis. 3. Subacromial impingement. 4. Acromioclavicular joint arthritis. OPERATIONS: 1. Exam under anesthesia. 2. Diagnostic and operative arthroscopy of the left shoulder with extensive debridement. 3. Manipulation under anesthesia. 4. Arthroscopic rotator cuff repair of the subscapularis. 5. Arthroscopic biceps tenodesis. 6. Extensive debridement of the bursa. 7. Subacromial decompression. 8. Distal clavicle resection of 1 cm. [facility] PATIENT NAME: OPAL MAI [facility] [address] MEDICAL REC #: [id number] [place] [address] ADMIT DATE: DISCHARGE DATE: OPERATIVE REPORT ATTENDING PHY: Smith Lino DO SURGEON: Smith Lino DO [employer]ER: Airam Linares PA-C ANESTHESIA: General with peripheral nerve block for postoperative pain management. BLOOD LOSS: Minimal. COMPLICATIONS: None. CONDITION: Stable. PROCEDURE: A 55-year-old white female brought into the OR, placed in the supine position. After induction of general anesthesia, manipulation was performed with substantial improvement in her passive range of motion. She was placed in the beach chair position. The portals were infiltrated with 0.5 Marcaine with epinephrine, 20 mL was utilized. The left shoulder was then sterilely prepped and draped in the usual orthopedic fashion. A posterior portal was made then under direct visualization. The anterior portal was made. Intra-articularly revealed severe damage to both the proximal biceps attachment and biceps tendon and a complete rupture of the subscapularis from the [facility] PATIENT NAME: OPAL MAI [address] [facility] [address] MEDICAL REC #: [id number] [place] [address] ADMIT DATE: DISCHARGE DATE: OPERATIVE REPORT ATTENDING PHY: Smith Lino DO humeral attachment. There was substantial damage to the superior labrum, minimal glenohumeral arthritis. There was some inflammatory tissue anteriorly. Extensive debridement, biceps tenodesis, subscapularis repair, all done arthroscopically with FiberLink sutures and 4.75 SwiveLock anchor. We then went ahead and put the scope in the subacromial space via lateral portal. Inflammatory bursa was removed from the bursal side of the supraspinatus and infraspinatus. There were no full-thickness tears identified. We then released the coracoacromial ligament. This exposed a very large downward sloping spur off the acromion plus a large bulbous distal clavicle. A subacromial decompression was performed through the lateral portal and 1 cm of distal clavicle was removed through the anterior portal. No other pathologic findings. The instruments were removed. All portals were closed with 4-0 nylon suture, bulky dressing, sling to protect the repair. She was brought up out of anesthesia, transported to the recovery room in stable condition. Smith Lino DO [facility] MED[facility] REC #: [id number] [place] [address] ADMIT DATE: DISCHARGE DATE: OPERATIVE REPORT ATTENDING PHY: Smith Lino DO [id number] SSI File#: [id number] END OF DOCUMENT / CHANGE LOG FOLLOWS Last Edited By Elec. Signed By Smith Lino DO #LYKMI Smith Lino DO #LYKMI on 11/13/2021 13:09 ET on 11/13/2021 13:09 ET Revision Number - 2 Verified/Reviewed by 11/13/21 1309 HARESH [facility] PATIENT [facility]: [facility] MEDICAL REC #: [id number] [place] [address] ADMIT DATE: DISCHARGE DATE: OPERATIVE REPORT ATTENDING PHY: Smith Lino DO Normal [facility] Vital Signs Date Time Vital Sign Value Performing Clinician Faci ron 05-02-2025 08:56-0400 Body height 165.[address] Kai Gonzalez DO Work Phone: [facility] 05-02-2025 08:50-0400 Body mass index (BMI) [Ratio] 38.4 kg/m2 Dr. Kai Gonzalez DO Work Phone: [facility] 05-02-2025 08:50-0400 Body weight 104.[address] Kai Gonzalez DO Work Phone: [facility] 05-02-2025 08:50-0400 Diastolic blood pressure 84 mm[Hg] Dr. Kai Gonzalez DO Work Phone: [facility] 05-02-2025 08:50-0400 Systolic blood pressure 136 mm[Hg] Dr. Kai Gonzalez DO Work Phone: [facility] 12-03-2023 16:41-0500 Body height 165.[address] Kai Gonzalez Work Phone: [facility] 12-03-2023 16:41-0500 Body mass index (BMI) [Ratio] 37.3 kg/m2 Dr. Kai Gonzalez Work Phone: [facility] 12-03-2023 16:41-0500 Body temperature 97.4 [degF] Dr. Kai Gonzalez Work Phone: [facility] 12-03-2023 16:41-0500 Body weight 101.[address] Kai Gonzalez Work Phone: [facility] 12-03-2023 16:41-0500 Diastolic blood pressure 78 mm[Hg] Dr. Kai Gonzalez Work Phone: [facility] 12-03-2023 16:41-0500 Heart rate 76 /min Dr. Kai Gonzalez Work Phone: [facility] 12-03-2023 16:41-0500 Respiratory rate 16 /min Dr. Kai Gonzalez Work Phone: [facility] 12-03-2023 16:41-0500 SaO2% (BldA) [Mass fraction] 97 % Dr. Kai Gonzalez Work Phone: [facility] 12-03-2023 16:41-0500 Systolic blood pressure 112 mm[Hg] Dr. Kai Gonzalez Work Phone: [facility] 11-02-2023 14:21-0500 Body height 165.[address] Kai Gonzalez Work Phone: [facility] 11-02-2023 14:21-0500 Body mass index (BMI) [Ratio] 40.9 kg/m2 Dr. Kai Gonzalez Work Phone: [facility] 11-02-2023 14:21-0500 Body temperature 97.6 [degF] Dr. Kai Gonzalez Work Phone: [facility] 11-02-2023 14:21-0500 Body weight 111.[address] Kai Gonzalez Work Phone: [facility] 11-02-2023 14:21-0500 Diastolic blood pressure 78 mm[Hg] Dr. Kai Gonzalez Work Phone: [facility] 11-02-2023 14:21-0500 Heart rate 80 /min Dr. Kai Gonzalez Work Phone: [facility] 11-02-2023 14:21-0500 Respiratory rate 17 /min Dr. Kai Gonzalez Work Phone: [facility] 11-02-2023 14:21-0500 SaO2% (BldA) [Mass fraction] 97 % Dr. Kai Gonzalez Work Phone: [facility] 11-02-2023 14:21-0500 Systolic blood pressure 129 mm[Hg] Dr. Kai Gonzalez Work Phone: [facility] 09-22-2023 09:47-0500 Body height 165.[address] Kai Gonzalez Work Phone: [facility] 09-22-2023 09:47-0500 Body mass index (BMI) [Ratio] 34.9 kg/m2 Dr. Kai Gonzalez Work Phone: [facility] 09-22-2023 09:47-0500 Body temperature 98.6 [degF] Dr. Kai Gonzalez Work Phone: [facility] 09-22-2023 09:47-0500 Body weight 95.[address] Kai Gonzalez Work Phone: [facility] 09-22-2023 09:47-0500 Diastolic blood pressure 82 mm[Hg] Dr. Kai Gonzalez Work Phone: [facility] 09-22-2023 09:47-0500 Heart rate 85 /min Dr. Kai Gonzalez Work Phone: [facility] 09-22-2023 09:47-0500 Respiratory rate 16 /min Dr. Kai Gonzalez Work Phone: [facility] 09-22-2023 09:47-0500 SaO2% (BldA) [Mass fraction] 94 % Dr. Kai Gonzalez Work Phone: [facility] 09-22-2023 09:47-0500 Systolic blood pressure 137 mm[Hg] Dr. Kai Gonzalez Work Phone: [facility] 07-08-2023 16:17-0400 Body mass index (BMI) [Ratio] 37 kg/m2 Dr. Kai Gonzalez Work Phone: [facility] 07-08-2023 16:17-0400 Body temperature 98.5 [degF] Dr. Kai Gonzalez Work Phone: [facility] 07-08-2023 16:17-0400 Body weight 100.[address] Kai Gonzalez Work Phone: [facility] 07-08-2023 16:17-0400 Diastolic blood pressure 82 mm[Hg] Dr. Kai Gonzalez Work Phone: [facility] 07-08-2023 16:17-0400 Heart rate 90 /min Dr. Kai Gonzalez Work Phone: [facility] 07-08-2023 16:17-0400 Respiratory rate 17 /min Dr. Kai Gonzalez Work Phone: [facility] 07-08-2023 16:17-0400 SaO2% (BldA) [Mass fraction] 95 % Dr. Kai Gonzalez Work Phone: [facility] 07-08-2023 16:17-0400 Systolic blood pressure 120 mm[Hg] Dr. Kai Gonzalez Work Phone: [facility] 06-17-2023 15:45-0400 Body height 165.[address] Kai Gonzalez Work Phone: [facility] 06-17-2023 15:45-0400 Body mass index (BMI) [Ratio] 36.6 kg/m2 Dr. Kai Gonzalez Work Phone: [facility] 06-17-2023 15:45-0400 Body temperature 96.9 [degF] Dr. Kai Gonzalez Work Phone: [facility] 06-17-2023 15:45-0400 Body weight 99.[address] Kai Gonzalez Work Phone: [facility] 06-17-2023 15:45-0400 Diastolic blood pressure 76 mm[Hg] Dr. Kai Gonzalez Work Phone: [facility] 06-17-2023 15:45-0400 Heart rate 79 /min Dr. Kai Gonzalez Work Phone: [facility] 06-17-2023 15:45-0400 Respiratory rate 18 /min Dr. Kai Gonzalez Work Phone: [facility] 06-17-2023 15:45-0400 SaO2% (BldA) [Mass fraction] 98 % Dr. Kai Gonzalez Work Phone: [facility] 06-17-2023 15:45-0400 Systolic blood pressure 108 mm[Hg] Dr. Kai Gonzalez Work Phone: [facility] 06-13-2022 15:00-0400 Body height 165.[address] Kai Gonzalez Work Phone: [facility] Work Phone: 06-13-2022 15:00-0400 Body mass index (BMI) [Ratio] 34.9 kg/m2 Dr. Kai Gonzalez Work Phone: [facility] Work Phone: 06-13-2022 15:00-0400 Body temperature 97.8 [degF] Dr. Kai Gonzalez Work Phone: [facility] Work Phone: 06-13-2022 15:00-0400 Body weight 95.[address] Kai Gonzalez Work Phone: [facility] Work Phone: 06-13-2022 15:00-0400 Diastolic blood pressure 80 mm[Hg] Dr. Kai Gonzalez Work Phone: [facility] Work Phone: 06-13-2022 15:00-0400 Heart rate 94 /min Dr. Kai Gonzalez Work Phone: [facility] Work Phone: 06-13-2022 15:00-0400 Respiratory rate 16 /min Dr. Kai Gonzalez Work Phone: [facility] Work Phone: 06-13-2022 15:00-0400 SaO2% (BldA) [Mass fraction] 99 % Dr. Kai Gonzalez Work Phone: [facility] Work Phone: 06-13-2022 15:00-0400 Systolic blood pressure 126 mm[Hg] Dr. Kai Gonzalez Work Phone: [facility] Work Phone: Encounters Encounter Date Encounter Type Care Provider Facility Start: 05-02-2025 End: 05-02-2025 ambulatory Kai Gonzalez Facility:[facility] Start: 05-02-2025 End: 05-02-2025 Patient encounter procedure Arely BURGOS [facility] Work Phone: Start: 05-02-2025 End: 05-02-2025 Patient encounter status Arely BURGOS [facility] Start: 11-01-2024 End: 01-14-2025 ambulatory Kai Gonzalez Facility:[facility] Start: 10-04-2024 End: 10-04-2024 ambulatory Kai Gonzalez Facility:[facility] Start: 09-27-2024 End: 09-27-2024 ambulatory Kai Gonzalez Facility:[facility] Start: 07-27-2024 End: 07-27-2024 ambulatory Kai Gonzalez Facility:[facility] Start: 12-04-2023 End: 12-04-[address] Kai Gonzalez Work Phone: [facility] Work Phone: Start: 12-04-2023 End: 12-04-[address] Kai Gonzalez Work Phone: [facility] Work Phone: Start: 12-03-2023 End: 12-03-[address] Kai Gonzalez Work Phone: [facility] Work Phone: Start: 11-04-2023 Non-patient / Non-visit Dr. Khan Work Phone: [facility] Start: 11-04-2023 End: 11-04-[address] Kai Gonzalez Work Phone: [facility] Work Phone: Start: 11-04-2023 End: 11-04-[address] Kai Gonzalez Work Phone: [facility], [facility] Work Phone: Start: 11-02-2023 End: 11-02-[address] Kai Gonzalez Work Phone: [facility] Work Phone: Start: 10-08-2023 End: 10-08-[address] Kai Gonzalez Work Phone: [facility] Work Phone: Start: 10-08-2023 End: 10-08-[address] Kai Gonzalez Work Phone: [facility] Work Phone: Start: 09-25-2023 End: 09-25-[address] Kai Gonzalez Work Phone: [facility] Work Phone: Start: 09-25-2023 End: 09-25-[address] Kai Gonzalez Work Phone: [facility] Work Phone: Start: 09-22-2023 End: 09-22-[address] Kai Gonzalez Work Phone: [facility] Work Phone: Start: 07-08-2023 End: 07-08-[address] Kai Gonzalez Work Phone: [facility] Work Phone: Start: 06-17-2023 End: 06-17-[address] Kai Gonzalez Work Phone: [facility] Work Phone: Start: 06-17-2023 End: 06-17-[address] Kai Gonzalez Work Phone: [facility] Work Phone: Start: 09-24-2022 End: 09-24-[address] Kai Gonzalez Work Phone: [facility] Work Phone: Start: 09-24-2022 End: 09-24-[address] Kai Gonzalez Work Phone: [facility] Start: 09-10-2022 End: 09-10-[address] Kai Gonzalez Work Phone: [facility] Work Phone: Start: 09-10-2022 End: 09-10-[address] Kai Gonzalez Work Phone: [facility]Laboratory, Specimen Start: 06-13-2022 End: 06-13-[address] Kai Gonzalez Work Phone: [facility] Start: 05-11-2019 Patient encounter status [facility] Procedures Date Procedure Procedure Detail Performing Clinician Start: 12-04-[address] Kai Gonzalez Work Phone: Start: 11-04-[address] Kai Gonzalez Work Phone: Start: 10-08-[address] Kai Gonzalez Work Phone: Start: 09-25-2023 Screening mammography Chandrika Gonzalez Work Phone: Start: 09-24-2022 Screening mammography Chandrika Gonzalez Work Phone: Plan of Treatment Date Care Activity Detail Author Start: 11-04-2023 Ultrasonography of breast Breast Limited Unilateral [facility] Start: 06-17-2023 Patient referral [facility] Work Phone: Start: 09-10-2022 Procedure [facility] Work Phone: MG Breast - bilatera l Screening [facility] MG Breast - bilatera l Screening [facility] Path report.final Dx Spec [facility] Work Phone: Patient Education RAD RN Stereot actic Breast Biopsy Discharge Instructions RAD RN Ultrasound Breast Biopsy Discharge Instructions [facility] Work Phone: Patient referral [facility] Work Phone: Procedure [facility] Work Phone: Immunizations Immunization Date Immunization Notes Care Provider Rajesh salinas 09-30-2021 Covid (Pfizer) [facility] 09-02-2021 Influenza virus vaccine [facility] 02-14-2021 Covid (Pfizer) [facility] 01-23-2021 Covid (Pfizer) [facility] Payers Date Payer Category Payer Self-pay [id number] 2006 Unknown [id number] Unknown [id number] Unknown [id number] Unknown [id number] Unknown [id number] Unknown [id number] Unknown [id number] [id number] [id number] Social History Date Type Detail [facility] Work Phone: Start: 1965 Sex Assigned At Female [facility] Start: 06-13-2022 End: 12-03-2023 Tobacco smoking status [facility] Unknown if ever smoked [facility] Start: 05-03-2021 Non-smoker [facility] Start: 05-02-2025 [facility] Medical Equipment Procedure Code Equipment Code Equipment Origin al Text Equipment Identifier Dates FESS (functional endoscopic sinus surgery) SEALANT,FLOSEAL HEMOSTATIC 5ML FDA Start: 07-01-2019 FESS (functional endoscopic sinus surgery) SEALANT,FLOSEAL HEMOSTATIC 5ML FDA Start: 07-01-2019 FESS (functional endoscopic sinus surgery) SEALANT,FLOSEAL HEMOSTATIC 5ML FDA Start: 07-01-2019 FESS (functional endoscopic sinus surgery) SEALANT,FLOSEAL HEMOSTATIC 5ML FDA Start: 07-01-2019 FESS (functional endoscopic sinus surgery) SEALANT,FLOSEAL HEMOSTATIC 5ML FDA Start: 07-01-2019 FESS (functional endoscopic sinus surgery) SEALANT,FLOSEAL HEMOSTATIC 5ML FDA Start: 07-01-2019 FESS (functional endoscopic sinus surgery) SEALANT,FLOSEAL HEMOSTATIC 5ML FDA Start: 07-01-2019 FESS (functional endoscopic sinus surgery) SEALANT,FLOSEAL HEMOSTATIC 5ML FDA Start: 07-01-2019 FESS (functional endoscopic sinus surgery) SEALANT,FLOSEAL HEMOSTATIC 5ML FDA Start: 07-01-2019 Progress note 11-04-2023 Note Date & Type Note Facility 11-04-2023 Progress note Note Date/Time November 04, 2023 11:18am [facility] Medical Records Department [address] [facility] [place] [address] Progress Note 11/04/23 1118 MR#: [id number] Acct: [id number] Name: OPAL MAI ANN Rep #:[id number] : 1965 57 From: Jeannie Akbar MD PCP: Dr. Kai Gonzalez, DO Status:RE G CLI Location: US Progress Note Previous lesion of the right breast 1:00 7 cm from the nipple --unable to be found with ultrasound thus no biopsy done. Plan for follow-up in 1 month patient is agreeable to plan. Capacity Legal Dye Tub Tender Reflex Medical hold order details:: IF a medical hold is selected below, a suggested order for a MEDICAL HOLD will reflex upon signing the document. Next of kin: [place] law dictates a PRIORITY LIST for identifying legal decision-maker/legal next of kin in the following order (LNOK): 1st: The patient?s legal guardian, if any 2nd: The patient's spouse (if status is questionable, consult Risk Management) 3rd: The patient?s adult child(alondra) (majority, if multiple children) 4th: The patient?s parents 5th: The patient?s adult siblings (majority, if multiple children siblings) 11/04/23 1119 <Electronically signed by Jeannie Akbar MD> Jeannie Akbar MD Cosigner Signature (if applicable): CC: ~ Signed [facility] Work Phone: Clinical Note 09-10-2022 Note Date & Type Note Facility 09-10-2022 Note [facility] Work Phone: Pap Smear Specimen Adequacy September 10, 2022 4:24pm Comment . Satisfactory for evaluation. Endocervical component may not bedistinguished in cases of atrophy.Areas of partially obscuring inflammatory exudate are present. Comment on above: Satisfactory for haim luation. Endocervical component may not bedistinguished in cases of atrophy.Areas of partially obscuring inflammatory exudate are present. Evaluation note Note Date & Type Note Facility Evaluation note No assessment information availa [facility] Work Phone: Evaluation note Note Date & Type Note Facility Evaluation note Diagnosis Onset Date Acute maxillary sinusitis ac [facility] Work Phone: Evaluation note Note Date & Type Note Facility Evaluation note Diagnosis Onset Date Tachycardia determined by ex amination of pulse acute Essential (primary) hypertension [facility] Work Phone: Evaluation note Note Date & Type Note Facility Evaluation note Diagnosis Onset Date Tachycardia determined by ex amination of pulse acute Essential (primary) hypertension chronic Sinusitis chronic Acute maxillary sinusitis ac [facility] Work Phone: Evaluation note Note Date & Type Note Facility Evaluation note Diagnosis Onset Date Acute maxillary sinusitis ac [place] Abnormal mammogram of right breast [facility] Work Phone: Evaluation note Note Date & Type Note Facility Evaluation note Diagnosis Onset Date Acute maxillary sinusitis ac [place] Abnormal mammogram of right breast acute Essential (primary) hypertension chronic Sinusitis [facility] Work Phone: Evaluation note Note Date & Type Note Facility Evaluation note Diagnosis Onset Date Resolution Encounter for routine gynecological examination noneactive May 02, 2025 8:48am [facility] Work Phone: Reason for referral (narrative) Note Date & Type Note Facility Reason for referral (narrative) No reason for referral information available [place] [employer] [facility] Work Phone: Summary Purpose Family History Relationship Condition Age at Onset Recorded Date/T yanely Not Specified Malignant neoplasm Unknown Hypertension Unknown Disorder of thyroid Unknown father Myocardial infarction Unknown Advance Directives Advance Directive Response Recorded Date/ Time Living Will No November 23 8:33am Power of Railroad Track Mechanic No November 23, 2020 8:33am Advance Directive Response Recorded Date/ Time Living Will No November 23 9:33am Power of Railroad Track Mechanic No November 23, 2020 9:33am Chief Complaint and Reason for Visit Chief Complaint BP ISSUES Reason for Visit Acute maxillary sinu sitis Chief Complaint BP ISSUES SCREENING Reason for Visit Acute maxillary sinu sitis Chief Complaint med fu Reason for Visit Tachycardia determin ed by examination of pulse Essential (primary) hypertension Chief Complaint med fu SINUS INFECTION SINUS DISCOMFORT SCREENING Reason for Visit Tachycardia determin ed by examination of pulse Essential (primary) hypertension Sinusitis Acute maxillary sinusitis Chief Complaint med fu SINUS INFECTION SINUS DISCOMFORT SCREENING ABNORMAL BI Reason for Visit Tachycardia determin ed by examination of pulse Essential (primary) hypertension Sinusitis Acute maxillary sinusitis Chief Complaint SINUS DISCOMFORT SCREENING ABNORMAL BI Right Breast Birads 4 LESION LESION Reason for Visit Acute maxillary sinu sitis Abnormal mammogram of right breast Chief Complaint SINUS DISCOMFORT SCREENING ABNORMAL BI Right Breast Birads 4 LESION LESION 6 M FU RIGHT BREAST MASS Reason for Visit Acute maxillary sinu sitis Abnormal mammogram of right breast Essential (primary) hypertension Sinusitis Chief Complaint Admit Date Annual (DISC SANDER) May 02, 2025 8:48 am Reason for Visit Admit Date Encounter for routine gynecological exam ination May 02, 2025 8:48am Additional Source Comments INFORMATION SOURCE (unrecogn ized section and content) DATE CREATED AUTHOR 11/14/2021 [facility] Alicja perez [place] DATE CREATED AUTHOR AUTHOR'S ORGANIZ ATION 04/30/2025 [facility] Goals (unrecognized section and content) Goals may be documented in a n alternate sectionGoals may be documented in an alternate sectionGoals may be documented in an alternate sectionGoals may be documented in an alternate sectionGoals may be documented in an alternate sectionGoals may be documented in an alternate sectionGoals may be documented in an alternate sectionGoals may be documented in an alternate sectionGoals may be documented in an alternate section Care Teams (unrecognized sec tion and content) Team Status: Active Member Role Status Dates Dr. Kai Gonzalez , DO Family Provider Active Dr. Kai Gonzalez , DO Primary Care Provider Active Team Status: Inactive Member Role Status Dates Dr. Kai Gonzalez , DO Primary Care Pr ovider, Attending Provider, Referring Provider Active Team Status: Inactive Member Role Status Dates Dr. Kai Gonzalez , DO Primary Care Provider, Attend ing Provider Active Team Status: Inactive Member Role Status Dates Dr. Kai Gonzalez , DO Primary Care Provider, Referr ing Provider Active Jordan GARIBAY PA Attending Provider Active Team Status: Inactive Member Role Status Dates Dr. Kai Gonzalez , DO Primary Care Provider, Referr ing Provider Active Pablo GARIBAY PA Attending Provider Active Team Status: Inactive Member Role Status Dates Dr. Kai Gonzalez , DO Primary Care Provider, Referr ing Provider Active Dr. Jeannie Akbar MD Attending Provider Active Team Status: Active Member Role Status Dates Dr. Kai Gonzalez , DO Primary Care Provider Active Dr. Jeannie Akbar MD Attending Provi radha, Referring Provider, Other Provider Active Team Status: Inactive Member Role Status Dates Dr. Kai Gonzalez , DO Primary Care Provider Active Dr. Jeannie Akbar MD Attending Provider, Referring Provider Active Team Status: Inactive Member Role Status Dates Dr. Kai Gonzalez , DO Primary Care Provider, Referr ing Provider Active Dr. Robert Escalona MD Attending Provider Active Team Status: Inactive Member Role Status Dates Dr. Kai Gonzalez , DO Primary Care Provider, Other Provider Active Dr. Jeannie Akbar MD Attending Provider, Referring Provider Active Team Status: Active Member Role/Relationship Status Dates Dr. Kai Gonzalez , DO Family Provider Active Dr. Kai Gonzalez , DO Primary Care Provider Active Team Status: Inactive Member Role/Relationship Status Dates Dr. Kai Gonzalez , DO Primary Care Provider Active Start: May 02, 2025 End: May 02, 2025 Dr. Kai Gonzalez DO Referring Provider Active Start: May 02, 2025 End: May 02, 2025 Arely Naylor NP, MENTAL HEALTH CONSULTANT-C Attending Provider Active Start: May 02, 2025 End: May 02, 2025 FOR RECORDS PERTAINING TO PATIENTS WHO ARE [...] BE BASED ON THE PRIMARY CLINICAL RECORDS. [employer] provides no warranty or guarantee of the accuracy or completeness of information in this document.
--- OUTSIDE RECORDS SUMMARY | 2025-05-02 21:19 | XMS RPT_ITS | CCD ---
Author Organization [facility]ini[facility]va Care Team Providers Care Assembly Machine Offbearer Name Role Phone Dr. Kai Gonzalez Primary [...] Dr. Kai Gonzalez DO Primary Care Provider [phone] Dr. Kai Gonzalez DO Referring Provider Arely Greenberg Attending Provider [phone] Medications Current Medications Medication Drug Class(es) Dates [...] 0.333 mg/ml oral solution (9 sources) Uncompetitive X-czqibv-Z-aspartate Receptor Antagonist, Sigma-1 Agonist, alpha-1 Adrenergic Agonist Start: 01-06-2019 End: 01-18-2019 Glrfcvfyn-Rf-Papkdyof-Guaife n (Tylenol Cold And Flu Severe) 5-24-339-200 mg/15 mL liquid Discontinued mL PO 0 January 06, 2019 12:00am January 18, 2019 1:13pm Start: 01-06-2019 End: 01-18-2019 Uzmrrmngy-Ms-Zefesbmv-Guaife n (Tylenol Cold And Flu Severe) 8-81-984-200 mg/15 mL liquid Discontinued ML PO January [...] Reporton 0 11-01-2024 Urgent Care Visit Report [facility] [address], [address] [place] [id number] OFFICE VISIT Date of Service: 11/01/24 MR#: [id number] Acct: [id number] Name: OPAL MAI Rep #: [id number] : 1965 Provider: LANI Reinoso Age/Sex: 58/F Location[place] [facility] Status: Signed Intake Vital Signs 07/27/24 08:03 [...] hot and that what happens with one. [facility] Medical History URI (upper respiratory infection) Diastolic [...] appearance normal (more content not included)... [facility] Care Visit Reporton 1 12-05-2023 Urgent Care Visit Report [facility] [address] [place] [address] OFFICE VISIT Date of Service: 10/04/24 MR#: [id number] Acct: [id number] Name: OPAL MAI ANN Rep #: [id number] : 1965 Provider: LANI Reinoso Age/Sex: 58/F Location[place] [facility] Status: Signed Intake Vital Signs 07/27/24 08:03 [...] WELL Chief Complaint: fever, headache, body aches Certified Mortician Required: No Is patient in pain?: No [...] x3 days. Ran juan pablo covid/flu test. [facility] Medical History URI (upper respiratory infection) Diastolic [...] recently dx???d w/ similar URI complaints. No zurl-gvk-ljxeamm taken to assist. Patient is requesting POC [...] lymphadenopathy not (more content not included)... [facility] SCRN MAMM (CAD)W/IVORY BILATo n 09-27-2024 SCRN MAMM (CAD)W/IVORY BILAT [facility] Imaging Services [address] [place] [address] SCRN MAMM (CAD)W/IVORY BILAT MR#: [id number] Acct: [id number] Name: OPAL MAI ANN Rep #: [id number] : 1965 F 58 From: John matthews MD PCP: Dr. 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 [id number] Electronically Signed: John Bennett MD at 8:00 EST , CC: AUBREY Torres; Dr. Kai Gonzalez DO Computer Assembler: Signed [facility] Internal Medicine Office Vis itoalshonda 07-27-2024 Internal Medicine Office Visit [facility] [address] [place] [address] OFFICE VISIT Date of Service: 07/27/24 MR#: [id number] Acct: [id number] Name: OPAL MAI Rep #: [id number] : 1965 Provider: LANI Hector Age/Sex: 58/F Location[place] [facility] Status: Signed Intake Vital Signs 02/25/24 15:54 [...] Reasons: HIP INJECTION Chief Complaint: hip injection Certified Mortician Required: No Accompanied by: Self Is patient [...] snoring or (more content not included)... [facility] Basophil percentageOrdered B y: Kai Gonzalez on 12-04-2023 Chloride [Moles/Vol] 105 mmol/L 98-107 [facility] Glucose [Mass/Vol] 97 mg/dL 74-106 [facility] Potassium [Moles/Vol] 4.1 mmol/L 3.5-5.1 [facility] Comment on above: Moderate Hemolysis, Result may be falsely increased. Sodium [Moles/Vol] 140 mmol/L 136-145 [facility] Laboratory - Chemistry and C hemistry - challengeOrdered By: Kai Gonzalez on 12-04-2023 CO2 [Moles/Vol] 29.0 mmol/L 21.0-32.0 [facility] Urea nitrogen/Creatinine [Mass ratio] 22.4 mg/mg 10-20 [facility] No Panel InformationOrdered By: Kai Gonzalez on 12-04-2023 Estimated GFR (MDRD) Amer 89 mL/min >60 [facility] Comment on above: GFR Calc Estimated GFR (MDRD) Non-Af Amer 74 mL/min >60 [facility] Comment on above: Non- GFR Calc Serum or plasma calcium samuel urement (mass/volume)Ordered By: Kai Gonzalez on 12-04-2023 Calcium [Mass/Vol] 10.0 mg/dL 8.5-10.1 [facility] Serum or plasma creatinine m easurement (mass/volume)Ordered By: Kai Gonzalez on 12-04-2023 Creatinine [Mass/Vol] 0.85 mg/dL 0.55-1.02 [facility] Comment on above: The validity of the calculated GFR & GFRAA in patients over 70 years has not been determined. Clinical correlation is essential. Serum or plasma urea nitroge n measurement (mass/volume)Ordered By: Kai Gonzalez on 12-04-2023 Urea nitrogen [Mass/Vol] 19 mg/dL 7-18 [facility] Thin prep Papanicolaou smear with manual screeningOrdered By: Kaicallum Gonzalez on 12-04-2023 Thin prep Papanicolaou smear with manual screening 6 5-15 [facility] Laboratory - Microbiology an d Antimicrobial susceptibilityon 09-22-2023 SARS-CoV-2 (COVID-19) RNA CARL+probe Ql (Unsp spec) Not detected [facility] No Panel Informationon 09-22 Influenza Types A,B Rapid (Clinic) Not detected [facility] Absolute lymphocyte countOrd ered By: Kai Gonzalez on 06-17-2023 Lymphocytes Auto (Unsp spec) [#/Vol] 2.73 10*3/uL 0.83-4.51 [facility] Basophil percentageOrdered B y: Kai Gonzalez on 06-17-2023 Basophils/100 WBC (Bld) 0.5 % 0-1 [facility] Bilirubin [Mass/Vol] 0.30 mg/dL 0.20-1.00 [facility] Comment on above: For patients on eltr ombopag therapy, use of Dimension [place] TBIL is not recommended. Chloride [Moles/Vol] 100 mmol/L 98-107 [facility] Cholesterol [Mass/Vol] 235 mg/dL <200 [facility] Comment on above: <200 mg/dL Desirable 200-240 mg/dL Borderline >240 mg/dL High Risk Eosinophils/100 WBC (Bld) 1.8 % 0-5 [facility] Glucose [Mass/Vol] 103 mg/dL 74-106 [facility] Comment on above: Fasting Glucose resu lt from 100 to 125 mg/dL suggests IMPAIRED HOMEOSTASIS per A.D.A. criteria. Neutrophils (Bld) [#/Vol] 2.4 10*3/uL 2.0-7.7 [facility] Neutrophils/100 WBC (Bld) 42.2 % 47-70 [facility] Potassium [Moles/Vol] 3.2 mmol/L 3.5-5.1 [facility] Protein [Mass/Vol] 7.2 g/dL 6.4-8.2 [facility] Sodium [Moles/Vol] 136 mmol/L 136-145 [facility] Triglyceride [Mass/Vol] 215 mg/dL <199 [facility] Comment on above: The drugs N-Acetylcy steine and Metamizole may falsely depress this assay.Serum Triglycerides Reference Interval Normal <150 mg/dL Borderline high 150 - 199 mg/dL High 200 - 499 mg/dL Very High > or = 500 mg/dL WBC (Bld) [#/Vol] 5.7 10*3/uL 4.4-11.0 [facility] Blood erythrocytes count (nu mber/volume)Ordered By: Kai Gonzalez on 06-17-2023 RBC (Bld) [#/Vol] 4.60 10*6/uL 4.2-5.4 [facility] Blood hemoglobin measurement (mass/volume)Ordered By: Kai Gonzalez on 06-17-2023 Hemoglobin (Bld) [Mass/Vol] 14.0 g/dL 12.0-15.0 [facility] Blood lymphocytes/100 leukoc ytesOrdered By: Kai Gonzalez on 06-17-2023 Lymphocytes/100 WBC (Bld) 48.2 % 19-41 [facility] Blood monocytes/100 leukocyt esOrdered By: Kai Gonzalez on 06-17-2023 Monocytes/100 WBC (Bld) 6.9 % 0-10 [facility] Blood platelet mean volumeOr dered By: Kai Gonzalez on 06-17-2023 Platelet mean volume (Bld) [Entitic vol] 9.6 fL 6.2-12.0 [facility] Determination of erythrocyte mean corpuscular volume (MCV)Ordered By: Kai Gonzalez on 06-17-2023 MCV (RBC) [Entitic vol] 90.2 fL 81-99 [facility] Hematocrit Auto (Bld) [Volum e fraction]Ordered By: Kai Gonzalez on 06-17-2023 Hematocrit (Bld) [Volume fraction] 41.5 % 37-47 [facility] Laboratory - Chemistry and C hemistry - challengeOrdered By: Kai Gonzalez on 06-17-2023 ALP [Catalytic activity/Vol] 107 U/L 45-117 [facility] ALT [Catalytic activity/Vol] 32 U/L 13-56 [facility] CO2 [Moles/Vol] 28.0 mmol/L 21.0-32.0 [facility] Globulin (S) [Mass/Vol] 3.5 g/dL 2.2-4.2 [facility] Urea nitrogen/Creatinine [Mass ratio] 19.7 mg/mg 10-20 [facility] Laboratory - Hematology and Cell countsOrdered By: Kai Gonzalez on 06-17-2023 Erythrocyte distribution width (RBC) [Entitic vol] 41.7 fL 35.1-43.9 [facility] Erythrocyte distribution width (RBC) [Ratio] 12.6 % 11.6-14.6 [facility] Immature granulocytes/100 WBC (Bld) 0.400 % 0.0-0.9 [facility] Comment on above: IG% - Immature Granu locytes (promyelocytes, myelocytes and metamyelocytes) > 1% indicates that a LEFT SHIFT is Present. MCH (RBC) [Entitic mass] 30.4 pg 27.0-32.0 [facility] Nucleated RBC/100 WBC (Bld) [Ratio] 0 % 0-5 [facility] MCHC Auto (RBC) [Mass/Vol]Or dered By: Kai Gonzalez on 06-17-2023 MCHC (RBC) [Mass/Vol] 33.7 g/dL 32-36 [facility] No Panel InformationOrdered By: Kai Gonzalez on 06-17-2023 Estimated GFR (MDRD) Amer 93 mL/min >60 [facility] Comment on above: GFR Calc Estimated GFR (MDRD) Non-Af Amer 77 mL/min >60 [facility] Comment on above: Non- GFR Calc Thyroid Stimulating Hormone (TSH) 2.18 uIU/mL 0.358-3.74 [facility] Platelets bldOrdered By: Anita stratton Carlos on 06-17-2023 Platelets (Bld) [#/Vol] 226 10*3/uL 150-450 [facility] Serum or plasma albumin samuel urement (mass/volume)Ordered By: Kai Gonzalez on 06-17-2023 Albumin [Mass/Vol] 3.7 g/dL 3.2-5.0 [facility] Serum or plasma albumin/glob ulin mass ratioOrdered By: Kai Gonzalez on 06-17-2023 Albumin/Globulin [Mass ratio] 1.1 {ratio} 0.9-2.4 [facility] Serum or plasma calcium samuel urement (mass/volume)Ordered By: Kai Gonzalez on 06-17-2023 Calcium [Mass/Vol] 9.3 mg/dL 8.5-10.1 [facility] Serum or plasma cholesterol in HDL measurement (mass/volume)Ordered By: Kai Gonzalez on 06-17-2023 Cholesterol in HDL [Mass/Vol] 54 mg/dL >40 [facility] Comment on above: The drugs N-Acetylcy steine and Metamizole may falsely depress this assay. Reference Range HDL <40 mg/dL Low HDL Cholesterol HDL >or= 60 mg/dL High HDL Cholesterol Serum or plasma cholesterol in VLDL measurement (mass/volume)Ordered By: Kai Gonzalez on 06-17-2023 Cholesterol in VLDL [Mass/Vol] 43 mg/dL 5-40 [facility] Serum or plasma creatinine m easurement (mass/volume)Ordered By: Kai Gonzalez on 06-17-2023 Creatinine [Mass/Vol] 0.81 mg/dL 0.55-1.02 [facility] Comment on above: The validity of the calculated GFR & GFRAA in patients over 70 years has not been determined. Clinical correlation is essential. Serum or plasma low density lipoprotein (LDL) cholesterol measurement (mass/volume)Ordered By: Kai Gonzalez on 06-17-2023 Cholesterol in LDL [Mass/Vol] 138 mg/dL 0-130 [facility] Serum or plasma urea nitroge n measurement (mass/volume)Ordered By: Kai Gonzalez on 06-17-2023 Urea nitrogen [Mass/Vol] 16 mg/dL 7-18 [facility] Thin prep Papanicolaou smear with manual screeningOrdered By: Kai Gonzalez on 06-17-2023 Thin prep Papanicolaou smear with manual screening 23 U/L 15-37 [facility] Thin prep Papanicolaou smear with manual screening 8 5-15 [facility] Cervical or vagninal specime n microscopic examination by cytology stain (reported ason 09-10-2022 Cytology report Cyto stain Doc (Cvx/Vag) Comment . [facility] Work Phone: Comment on above: The Pap [...] DNA Probe+sig amp Ql (Cvx) Negative Negative [facility] Work Phone: Comment on above: This nucleic acid am plification test detects fourteen high- risk HPV types (16,18,31,33,35,39,45,51,52,56,58,59,66,68)without differentiation. Laboratory - Cytologyon 08-20 Cancer Registry Manager Cyto stain Nom (Cvx/Vag) [ID] Comment . [facility] Work Phone: Comment on above: Rocio Parsons, Cyto technologist (ASCP) Laboratory - Miscellaneous t estson 09-10-2022 Service comment (Unsp spec) [Interp] Comment . [facility] Work Phone: Comment on above: This liquid based Th inPrep(R) pap test was screened withthe use of an image guided system. Service comment (Unsp spec) [Interp] . . [facility] Work Phone: Liquid-based cerv Pap + CT/G C by CARL w reflex to high-risk HPV for ASCUSon 09-10-2022 Cytology report Cyto stain.thin prep Doc (Cvx/Vag) Comment . [facility] Work Phone: Comment on above: Criteria not met, HP V Genotype not performed.Performed at: [facility] - [address] [id number] Director: Sulema Pastor MD, Phone: [phone] at: =G - [address], [place] [id number] Director: Sulema Pastor MD, Phone: [phone] No Panel Informationon 09-10 Miscellaneous Test See comment [facility]: Comment on above: TEST RESULT [...] was developed and its performance characteristicsdetermined by [facility]. It has not been cleared or approvedby the Food and Drug Administration.Elena albicans, CARL, Negative NegativeCandida glabrata, CARL, Negative NegativeTrich vag by CARL Negative NegativeChlamydia trachomatis, CARL Negative NegativeNeisseria gonorrhoeae, CARL Negative Negative TESTING PERFORMED AT [facility]. ORIGINAL REPORT ON FILE IN LAB CONTAINS ADDITIONAL TEST SITE INFORMATION. ___ Pathology report final diagnosis Narrative Comment . [facility] Work Phone: Comment on above: NEGATIVE FOR INTRAEP ITHELIAL LESION OR MALIGNANCY. ORon 09-11-2021 [facility] DATE OF SERVICE: PREOPERATIVE DIAGNOSES: [...] 8. Distal clavicle resection of 1 cm. [facility] PATIENT NAME: OPAL MAI [facility] [address] [place] MEDICAL REC #: [id number] [place] [address] ADMIT DATE: DISCHARGE DATE: OPERATIVE REPORT ATTENDING PHY: Smith Lino DO SURGEON: Smith Lino DO IRB COMPLIANCE COORDINATOR: Airam Linares PA-C ANESTHESIA: General with peripheral [...] complete rupture of the subscapularis from the [facility] PATIENT NAME: OPAL MAI [address] [facility] [address] [place] MEDICAL REC #: [id number] [place] [address] ADMIT DATE: DISCHARGE DATE: OPERATIVE REPORT ATTENDING [...] room in stable condition. Smith Lino DO [facility] MEDICAL REC #: [id number] [place] [address] ADMIT DATE: DISCHARGE DATE: OPERATIVE REPORT ATTENDING PHY: Smith Lino DO [id number] SSI File#: [id number] END OF DOCUMENT / CHANGE LOG FOLLOWS Last Edited By [employer]. Signed By Smith Lino DO #LYKMI Smith Lino DO #LYKMI on 11/13/2021 13:09 ET on 11/13/2021 13:09 ET Revision Number - 2 Verified/Reviewed by 11/13/21 1309 [address]ESH [facility] PATIENT NAME: [facility] MEDICAL REC #: [id number] [place] [address] ADMIT DATE: DISCHARGE DATE: OPERATIVE REPORT ATTENDING PHY: Smith Lino DO [facility] Vital Signs Date Time Vital Sign Value Performing Clinician Faci ron 05-02-2025 08:56-0400 Body height 165.[address] Kai Gonzalez DO Work Phone: [facility] 05-02-2025 08:50-0400 Body mass index (BMI) [Ratio] 38.4 kg/m2 Dr. Kai Gonzalez DO Work Phone: [facility] 05-02-2025 08:50-0400 Body weight 104.[address] Kai Gonzalez DO Work Phone: [facility] 05-02-2025 08:50-0400 Diastolic blood pressure 84 mm[Hg] Dr. Kai Gonzalez DO Work Phone: [facility] 05-02-2025 08:50-0400 Systolic blood pressure 136 mm[Hg] Dr. Kai Gonzalez DO Work Phone: [facility] 12-03-2023 16:41-0500 Body height 165.[address] Kai Gonzalez Work Phone: [facility] 12-03-2023 16:41-0500 Body mass index (BMI) [Ratio] 37.3 kg/m2 Dr. Kai Gonzalez Work Phone: [facility] 12-03-2023 16:41-0500 Body temperature 97.4 [degF] Dr. Kai Gonzalez Work Phone: [facility] 12-03-2023 16:41-0500 Body weight 101.[address] Kai Gonzalez Work Phone: [facility] 12-03-2023 16:41-0500 Diastolic blood pressure 78 mm[Hg] Dr. Kai Gonzalez Work Phone: [facility] 12-03-2023 16:41-0500 Heart rate 76 /min Dr. Kai Gonzalez Work Phone: [facility] 12-03-2023 16:41-0500 Respiratory rate 16 /min Dr. Kai Gonzalez Work Phone: [facility] 12-03-2023 16:41-0500 SaO2% (BldA) [Mass fraction] 97 % Dr. Kai Gonzalez Work Phone: [facility] 12-03-2023 16:41-0500 Systolic blood pressure 112 mm[Hg] Dr. Kai Gonzalez Work Phone: [facility] 11-02-2023 14:21-0500 Body height 165.[address] Kai Gonzalez Work Phone: [facility] 11-02-2023 14:21-0500 Body mass index (BMI) [Ratio] 40.9 kg/m2 Dr. Kai Gonzalez Work Phone: [facility] 11-02-2023 14:21-0500 Body temperature 97.6 [degF] Dr. Kai Gonzalez Work Phone: [facility] 11-02-2023 14:21-0500 Body weight 111.[address] Kai Gonzalez Work Phone: [facility] 11-02-2023 14:21-0500 Diastolic blood pressure 78 mm[Hg] Dr. Kai Gonzalez Work Phone: [facility] 11-02-2023 14:21-0500 Heart rate 80 /min Dr. Kai Gonzalez Work Phone: [facility] 11-02-2023 14:21-0500 Respiratory rate 17 /min Dr. Kai Gonzalez Work Phone: [facility] 11-02-2023 14:21-0500 SaO2% (BldA) [Mass fraction] 97 % Dr. Kai Gonzalez Work Phone: [facility] 11-02-2023 14:21-0500 Systolic blood pressure 129 mm[Hg] Dr. Kai Gonzalez Work Phone: [facility] 09-22-2023 09:47-0500 Body height 165.[address] Kai Gonzalez Work Phone: [facility] 09-22-2023 09:47-0500 Body mass index (BMI) [Ratio] 34.9 kg/m2 Dr. Kai Gonzalez Work Phone: [facility] 09-22-2023 09:47-0500 Body temperature 98.6 [degF] Dr. Kai Gonzalez Work Phone: [facility] 09-22-2023 09:47-0500 Body weight 95.[address] Kai Gonzalez Work Phone: [facility] 09-22-2023 09:47-0500 Diastolic blood pressure 82 mm[Hg] Dr. Kai Gonzalez Work Phone: [facility] 09-22-2023 09:47-0500 Heart rate 85 /min Dr. Kai Gonzalez Work Phone: [facility] 09-22-2023 09:47-0500 Respiratory rate 16 /min Dr. Kai Gonzalez Work Phone: [facility] 09-22-2023 09:47-0500 SaO2% (BldA) [Mass fraction] 94 % Dr. Kai Gonzalez Work Phone: [facility] 09-22-2023 09:47-0500 Systolic blood pressure 137 mm[Hg] Dr. Kai Gonzalez Work Phone: [facility] 07-08-2023 16:17-0400 Body mass index (BMI) [Ratio] 37 kg/m2 Dr. Kai Gonzalez Work Phone: [facility] 07-08-2023 16:17-0400 Body temperature 98.5 [degF] Dr. Kai Gonzalez Work Phone: [facility] 07-08-2023 16:17-0400 Body weight 100.[address] Kai Gonzalez Work Phone: [facility] 07-08-2023 16:17-0400 Diastolic blood pressure 82 mm[Hg] Dr. Kai Gonzalez Work Phone: [facility] 07-08-2023 16:17-0400 Heart rate 90 /min Dr. Kai Gonzalez Work Phone: [facility] 07-08-2023 16:17-0400 Respiratory rate 17 /min Dr. Kai Gonzalez Work Phone: [facility] 07-08-2023 16:17-0400 SaO2% (BldA) [Mass fraction] 95 % Dr. Kai Gonzalez Work Phone: [facility] 07-08-2023 16:17-0400 Systolic blood pressure 120 mm[Hg] Dr. Kai Gonzalez Work Phone: [facility] 06-17-2023 15:45-0400 Body height 165.[address] Kai Gonzalez Work Phone: [facility] 06-17-2023 15:45-0400 Body mass index (BMI) [Ratio] 36.6 kg/m2 Dr. Kai Gonzalez Work Phone: [facility] 06-17-2023 15:45-0400 Body temperature 96.9 [degF] Dr. Kai Gonzalez Work Phone: [facility] 06-17-2023 15:45-0400 Body weight 99.[address] Kai Gonzalez Work Phone: [facility] 06-17-2023 15:45-0400 Diastolic blood pressure 76 mm[Hg] Dr. Kai Gonzalez Work Phone: [facility] 06-17-2023 15:45-0400 Heart rate 79 /min Dr. Kai Gonzalez Work Phone: [facility] 06-17-2023 15:45-0400 Respiratory rate 18 /min Dr. Kai Gonzalez Work Phone: [facility] 06-17-2023 15:45-0400 SaO2% (BldA) [Mass fraction] 98 % Dr. Kai Gonzalez Work Phone: [facility] 06-17-2023 15:45-0400 Systolic blood pressure 108 mm[Hg] Dr. Kai Gonzalez Work Phone: [facility] 06-13-2022 15:00-0400 Body height 165.[address] Kai Gonzalez Work Phone: [facility] Work Phone: 06-13-2022 15:00-0400 Body mass index (BMI) [Ratio] 34.9 kg/m2 Dr. Kai Gonzalez Work Phone: [facility] Work Phone: 06-13-2022 15:00-0400 Body temperature 97.8 [degF] Dr. Kai Gonzalez Work Phone: [facility] Work Phone: 06-13-2022 15:00-0400 Body weight 95.[address] Kai Gonzalez Work Phone: [facility] Work Phone: 06-13-2022 15:00-0400 Diastolic blood pressure 80 mm[Hg] Dr. Kai Gonzalez Work Phone: [facility] Work Phone: 06-13-2022 15:00-0400 Heart rate 94 /min Dr. Kai Gonzalez Work Phone: [facility] Work Phone: 06-13-2022 15:00-0400 Respiratory rate 16 /min Dr. Kai Gonzalez Work Phone: [facility] Work Phone: 06-13-2022 15:00-0400 SaO2% (BldA) [Mass fraction] 99 % Dr. Kai Gonzalez Work Phone: [facility] Work Phone: 06-13-2022 15:00-0400 Systolic blood pressure 126 mm[Hg] Dr. Kai Gonzalez Work Phone: [facility] Work Phone: Encounters Encounter Date Encounter Type Care Provider Facility Start: 05-02-2025 End: 05-02-2025 ambulatory Kai Gonzalez Facility:[facility] Start: 05-02-2025 End: 05-02-2025 Patient encounter procedure Arely BURGOS [facility] Work Phone: Start: 05-02-2025 End: 05-02-2025 Patient encounter status Arely BURGOS [facility] Start: 11-01-2024 End: 01-14-2025 ambulatory Kai Gonzalez Facility:[facility] Start: 10-04-2024 End: 10-04-2024 ambulatory Kai Gonzalez [facility] Start: 09-27-2024 End: 09-27-2024 ambulatory Kai Gonzalez Facility:[facility] Start: 07-27-2024 End: 07-27-2024 ambulatory Kai Gonzalez Facility:[facility] Start: 12-04-2023 End: 12-04-[address] Kai Gonzalez Work Phone: [facility] Work Phone: Start: 12-04-2023 End: 12-04-[address] Kai Gonzalez Work Phone: [facility] Work Phone: Start: 12-03-2023 End: 12-03-[address] Kai Gonzalez Work Phone: [facility] Work Phone: Start: 11-04-2023 Non-patient / Non-visit Dr. Khan Work Phone: [facility] Start: 11-04-2023 End: 11-04-[address] Kai Gonzalez Work Phone: [facility] Work Phone: Start: 11-04-2023 End: 11-04-[address] Kai Gonzalez Work Phone: [facility] Work Phone: Start: 11-02-2023 End: 11-02-[address] Kai Gonzalez Work Phone: [facility] Work Phone: Start: 10-08-2023 End: 10-08-[address] Kai Gonzalez Work Phone: [facility] Work Phone: Start: 10-08-2023 End: 10-08-[address] Kai Gonzalez Work Phone: [facility] Work Phone: Start: 09-25-2023 End: 09-25-[address] Kai Gonzalez Work Phone: [facility] Work Phone: Start: 09-25-2023 End: 09-25-[address] Kai Gonzalez Work Phone: [facility] Work Phone: Start: 09-22-2023 End: 09-22-[address] Kai Gonzalez Work Phone: [facility] Work Phone: Start: 07-08-2023 End: 07-08-[address] Kai Gonzalez Work Phone: [facility] Work Phone: Start: 06-17-2023 End: 06-17-[address] Kai Gonzalez Work Phone: [facility] Work Phone: Start: 06-17-2023 End: 06-17-[address] Kai Gonzalez Work Phone: [facility] Work Phone: Start: 09-24-2022 End: 09-24-[address] Kai Gonzalez Work Phone: [facility] Work Phone: Start: 09-24-2022 End: 09-24-[address] Kai Gonzalez Work Phone: [facility] Start: 09-10-2022 End: 09-10-[address] Kai Gonzalez Work Phone: [facility] Work Phone: Start: 09-10-2022 End: 09-10-[address] Kai Gonzalez Work Phone: [facility]Labor[facility], Specimen Start: 06-13-2022 End: 06-13-[address] Kai Gonzalez Work Phone: [facility] Start: 05-11-2019 Patient encounter status [facility] Procedures Date Procedure Procedure Detail Performing Clinician [...] 11-04-2023 Ultrasonography of breast Breast Limited Unilateral [facility] Start: 06-17-2023 Patient referral [facility] Work Phone: Start: 09-10-2022 Procedure [facility] Work Phone: MG Breast - bilatera l Screening [facility] MG Breast - bilatera l Screening [facility] Path report.final Dx Spec [facility] Work Phone: Patient Education RAD RN Stereot actic Breast Biopsy Discharge Instructions RAD RN Ultrasound Breast Biopsy Discharge Instructions [facility] Work Phone: Patient referral [facility] Work Phone: Procedure [facility] Work Phone: Immunizations Immunization Date Immunization Notes Care Provider Rajesh salinas 09-30-2021 Covid (Pfizer) [facility] 09-02-2021 Influenza virus vaccine [facility] 02-14-2021 Covid (Pfizer) [facility] 01-23-2021 Covid (Pfizer) [facility] Payers Date Payer Category Payer Self-pay [id number] 2006 Unknown [id number] Unknown [id number] Unknown [id number] Unknown [id number] Unknown [id number] [id number] Unknown [id number] [id number] Unknown [id number] Social History Date Type Detail [facility] Work Phone: Start: 1965 Sex Assigned At Female [facility] Start: 06-13-2022 End: 12-03-2023 Tobacco smoking status [facility] Unknown if ever smoked [facility] Start: 05-03-2021 Non-smoker [facility] Start: 05-02-2025 [facility] Medical Equipment Procedure Code Equipment Code Equipment [...] note Note Date/Time November 04, 2023 11:18am [facility] Medical Records Department [address] [facility] [place] [address] Progress Note 11/04/23 1118 MR#: [id number] Acct: [id number] Name: OPAL MAI ANN Rep #:[id number] : 1965 57 From: Jeannie Akbar MD PCP: Dr. Kai Gonzalez, DO Status:RE G CLI Location: US Progress Note Previous lesion of the right breast 1:00 7 cm from the nipple --unable to be found with ultrasound thus no biopsy done. Plan for follow-up in 1 month patient is agreeable to plan. Capacity Legal Hematology Technician Reflex Medical hold order details:: IF a medical hold is selected below, a suggested order for a MEDICAL HOLD will reflex upon signing the document. Next of kin: [place] law dictates a PRIORITY LIST for identifying [...] Cosigner Signature (if applicable): CC: ~ Signed [facility] Work Phone: Clinical Note 09-10-2022 Note Date & Type Note Facility 09-10-2022 Note [facility] Work Phone: Pap Smear Specimen Adequacy September [...] Facility Evaluation note No assessment information availa [facility] Work Phone: Evaluation note Note Date & Type Note Facility Evaluation note Diagnosis Onset Date Acute maxillary sinusitis ac [facility] Work Phone: Evaluation note Note Date & Type Note Facility Evaluation note Diagnosis Onset Date Tachycardia determined by ex amination of pulse acute Essential (primary) hypertension [facility] Work Phone: Evaluation note Note Date & Type Note Facility Evaluation note Diagnosis Onset Date Tachycardia determined by ex amination of pulse acute Essential (primary) hypertension chronic Sinusitis chronic Acute maxillary sinusitis ac [facility] Work Phone: Evaluation note Note Date & Type Note Facility Evaluation note Diagnosis Onset Date Acute maxillary sinusitis ac [place] Abnormal mammogram of right breast [facility] Work Phone: Evaluation note Note Date & Type Note Facility Evaluation note Diagnosis Onset Date Acute maxillary sinusitis ac [place] Abnormal mammogram of right breast acute Essential (primary) hypertension chronic Sinusitis [facility] Work Phone: Evaluation note Note Date & Type Note Facility Evaluation note Diagnosis Onset Date Resolution Encounter for routine gynecological examination noneactive May 02, 2025 8:48am [facility] Work Phone: Reason for referral (narrative) Note Date & Type Note Facility Reason for referral (narrative) No reason for referral information available [facility] Work Phone: Summary Purpose Family History Relationship Condition Age at Onset Recorded Date/T yanely Not Specified Malignant neoplasm Unknown Hypertension Unknown Disorder of thyroid Unknown father Myocardial infarction Unknown Advance Directives Advance Directive Response Recorded Date/ Time Living Will No November 23 8:33am Power of Charge Weigher No November 23, 2020 8:33am Advance Directive Response Recorded Date/ Time Living Will No November 23 9:33am Power of Charge Weigher No November 23, 2020 9:33am Chief Complaint [...] hypertension Sinusitis Chief Complaint Admit Date Annual (GEODESIST) May 02, 2025 8:48 am Reason for Visit Admit Date Encounter for routine gynecological exam ination May 02, 2025 8:48am Additional Source Comments INFORMATION SOURCE (unrecogn ized section and content) DATE CREATED AUTHOR 11/14/2021 [facility] Alicja perez [place] DATE CREATED AUTHOR AUTHOR'S ORGANIZ ATION 04/30/2025 [facility] Goals (unrecognized section and content) Goals may [...] End: May 02, 2025 Arely Naylor NP, AUTO CAMP ATTENDANT-C Attending Provider Active Start: May 02, 2025 [...] BE BASED ON THE PRIMARY CLINICAL RECORDS. [employer] provides no warranty or guarantee of the accuracy or completeness of information in this document.
[2025-05-05 09:09] LABS: HPV APTIMA, High Risk Negative (Negative)
== END | disposition home or self-care (01) ==
LOC: LABSPEC 12:06
PROVIDERS: PCP Family Medicine; Visit Provider Nurse Practitioner Women's Health
DX: N89.8 Other specified noninflammatory disorders of vagina (principal); Z86.19 Personal history of other infectious and parasitic diseases
CPT/HCPCS: 87070; 87077; 87205; 87624; 88175; G0145

== ENCOUNTER → 2025-09-28 | Outpatient (CLI) | payer BC, SELFPAY ==
--- NOTE | 2025-09-28 15:45 | BI_ITS ---
EXAM: SCRN MAMM (CAD)W/IVORY BILAT DATE: 09/28/2025 CLINICAL HISTORY: F, Age 59 y/o , SCREENING FOR BREAST CANCER TECHNIQUE: Procedure Code: [id number] Modality: MG Procedure: SCRN MAMM (CAD)W/IVORY BILAT COMPARISON: Prior exam(s) dated 09/27/2024, 09/25/2023. FINDINGS: TISSUE DENSITY: There are scattered areas of fibroglandular density. Bilateral Breast Mammographic Findings: No significant masses, calcifications or other abnormalities are identified. BI/SCRN MAMM (CAD)W/IVORY BILAT IMPRESSION: There is no mammographic evidence of malignancy. OVERALL FINAL ASSESSMENT BI-RADS 1: NEGATIVE. RECOMMENDATION: Routine annual follow-up in 1 Year Additional Recommendation none A letter with findings and recommendations will be mailed to the patient. Reading Location: [id number]
== END | disposition home or self-care (01) ==
PROVIDERS: PCP Family Medicine; Referring Provider Nurse Practitioner Women's Health; Visit Provider Nurse Practitioner Women's Health
DX: Z12.31 Encounter for screening mammogram for malignant neoplasm of breast (principal)
CPT/HCPCS: 77063; 77067